=== PATIENT | female | born 1945 | race Caucasian/White ===

== ENCOUNTER 2017-12-11 19:31 | Emergency (ER) | payer OTHER, MEDICARE ==
[2017-12-11] MEDS ORDERED: FENTANYL CITR 100 MCG/2 ML ONE (20:11)
[2017-12-11 20:52] LABS: Absolute Lymphocytes (CBC) 3.2 K/uL (0.7-4.9); Absolute Monocytes 0.4 K/uL (0.1-1.3); Basophils % 0.4 % (0-1.3); Eosinophils % 1.7 % (0-4.4); Hematocrit 40.8 % (36.0-45.0); Lymphocytes % 36.7 % (15.3-44.8); MCH 31.5 pg (27.0-35.0); MCV 92.8 fL (80-100); MPV 8.3 fL (7.6-11.3); Monocytes % 4.7 % (3.3-12.3)
[2017-12-11 20:55] LABS: Protime INR 0.93
[2017-12-11 21:02] LABS: ALT/SGPT 23 U/L (12-78); AST/SGOT 19 U/L (15-37); Albumin 4.2 g/dL (3.4-5.0); Alkaline Phosphatase 147 U/L (45-117); BUN Blood Urea Nitrogen 16 mg/dL (7-18); Bicarbonate 29 mmol/L (21-32); Bilirubin Direct < 0.1 mg/dL (0-0.2); Bilirubin Total 0.3 mg/dL (0.2-1.0); CKMB Creatine Kinase MB < 1.0 ng/mL (0.3-3.6); Creatine Phosphokinase 65 U/L (26-192); Glucose Level 140 mg/dL (74-106); Lipase 162 U/L (73-393); Magnesium 2.2 mg/dL (1.8-2.4); Potassium 4.4 mmol/L (3.5-5.1); Protein, Total 7.7 g/dL (6.4-8.2); Sodium Level 138 mmol/L (136-145); Troponin (Emerg Dept Use Only) < 0.02 ng/mL (0.0-0.045)
--- NOTE | 2017-12-11 21:35 | RAD REPORT ---
EXAM DESCRIPTION: CT - Head C Spine Cap Leeanna Marsh - 12/11/2017 9:19 pm CLINICAL HISTORY: Fall, head and neck pain and trauma, chest and abdomen pain COMPARISON: None. TECHNIQUE: Axial [address] head images were obtained. Axial [address] cervical spine images were obtaine d with sagittal and coronal reconstruction images reviewed. During dynamic enhancement of 100mL non-i onic contrast, axial 5 mm images of the chest, abdomen and pelvis were obtained. All CT scans are performed using dose optimization technique as appropriate and may include automated exposure control or mA/KV adjustment according to patient size. FINDINGS: No intracranial hemorrhage, mass or edema. No midline shift or abnormal fluid collection. Mild atrophy and chronic ischemic changes are present. Ventricular size is in proportion. Mastoid air cells show no acute findings. There is postsurgical change on the right. No acute paranasal sinus fi nding. Small left parietal scalp hematoma. No skull fracture. CT cervical spine imaging shows normal height. Slight anterior subluxation C4 on C5 due to facet dege nerative change. C5-6 and C6-7 disc space narrowing. Endplate spurring and uncovertebral hypertrophy noted at several levels. Bony foraminal encroachment at C5-6 and C6-7. No paraspinal mass or hematoma seen. Central canal detail is inherently limited. Concerns for traumatic disc herniation or traumati c cord injury can be further addressed with MR imaging. CT chest shows no pneumothorax, pulmonary contusion or pleural fluid collection. No mediastinal hemat warner and the aorta and pulmonary arteries are unremarkable. No chest will mass or abnormal axillary fi nding. No displaced rib fracture or other significant bony finding. Surgical clips are present in th e right breast. CT abdomen and pelvis show no injury to solid abdominal viscera. Gallbladder and biliary tree are unr emarkable. No bowel injury or significant finding. No free air, free fluid or abnormal stranding. No urinary bladder abnormality. No significant bony finding. Small umbilical hernia present. IMPRESSION: No hemorrhage, edema or acute intracranial finding. Mild atrophy chronic ischemic change s are present. Cervical spine degenerative changes are present without acute finding seen. No acute trauma findings in the chest. No significant CT Abdomen and Pelvis finding.
--- NOTE | 2017-12-11 22:00 | ER ---
Nurse's Notes [facility] Name: Rachel Walker Age: 72 yrs Sex: Female : 1945 Arrival Date: 12/11/2017 Time: 19:31 Bed 8 Private MD: CHARISMA YANEZ Diagnosis: Muscle spasm of back Presentation: 12/11 19:35 Presenting complaint: Patient states: Mechanical fall from standing, pt reports +LOC, la1 pain in head and back. Transition of care: patient was not received from another setting of care. Onset of symptoms was December 11, 2017. Risk Assessment: Do you want to hurt yourself or someone else? Patient reports no desire to harm self or others. Care prior to arrival: None. 19:35 Method Of Arrival: Wheelchair la1 19:35 Acuity: MAYA 2 la1 19:51 Initial Sepsis Screen: Does the patient meet any 2 criteria? No. Patient's initial ao sepsis screen is negative. Does the patient have a suspected source of infection? No. Patient's initial sepsis screen is negative. 19:52 Mechanism of Injury: Fall down steps. Trauma event details: Injury occurred in the [facility]. Trauma Activation: Physician: ED Physician; Name: Dr. Myles; Notified At: ; Arrived At: Physician: General Surgeon; Name: ; Notified At: ; Arrived At: Physician: Radiology; Name: Nikki; Notified At: ; Arrived At: Physician: Respiratory; Name: ; Notified At: ; Arrived At: Physician: Lab; Name: ; Notified At: ; Arrived At: Historical: - Allergies: 19:40 PENICILLINS; la1 19:40 Codeine; la1 - PMHx: 19:40 Hypothyroidism; Depression; breast CA; la1 - PSHx: 19:40 Right Lumpectomy; la1 - Immunization history:: Adult Immunizations up to date. - Social history:: Smoking status: unknown Patient/guardian denies using alcohol, street drugs, The patient lives with family. - Immunization history: Last tetanus immunization: - up to date. - Ebola Screening: : No symptoms or risks identified at this time. - Family history:: not pertinent. Screenin:50 Abuse screen: Denies threats or abuse. Denies injuries from another. Nutritional ao screening: No deficits noted. Tuberculosis screening: No symptoms or risk factors identified. Fall Risk None identified. Primary Survey: 19:51 A: Airway: patent. Breathing/Chest: Respiratory pattern: regular, Respiratory effort: ao spontaneous, unlabored, Breath sounds: clear, Chest inspection: symmetrical rise and fall of the chest. Circulation: Cardiac rhythm: sinus rhythm. Disability Alert. 20:40 Reassessment Airway Airway Patent Breathing/Chest Respiratory pattern Regular ao Respiratory effort Spontaneous Unlabored Breath sounds Clear Circulation Heart rhythm Sinus rhythm. Assessment: 19:41 General: Appears in no apparent distress. uncomfortable, Behavior is calm, cooperative. ao Pain: Complains of pain in Back of the neck and shoulders. Neuro: Level of Consciousness is awake, alert, obeys commands, Oriented to person, place, time, situation, Appropriate for age Moves all extremities. Full function Speech is normal, Facial symmetry appears normal. Cardiovascular: Capillary refill < 3 seconds Patient's skin is warm and dry. Respiratory: Airway is patent Trachea midline Respiratory effort is even, unlabored, Respiratory pattern is regular, symmetrical, Breath sounds are clear bilaterally. GI: Abdomen is non-distended. : No signs and/or symptoms were reported regarding the genitourinary system. EENT: No signs and/or symptoms were reported regarding the EENT system. Derm: Skin is intact. Musculoskeletal: Swelling present in scalp Reports pain in scalp. 20:50 Reassessment: Patient appears in no apparent distress at this time. Patient and/or ao family updated on plan of care and expected duration. Pain level reassessed. Patient is alert, oriented x 3, equal unlabored respirations, skin warm/dry/pink. Dr informed patient asking for pain medication. 21:41 Reassessment: Patient appears in no apparent distress at this time. Patient and/or ao family updated on plan of care and expected duration. Pain level reassessed. Patient is alert, oriented x 3, equal unlabored respirations, skin warm/dry/pink. Wailing on Dispo orders. 22:31 Reassessment: DC instructions given to patient and daughter. patient agree with the POC ao and to follow up with PCP. No questions at this time. Vital Signs: 19:35 BP 151 / 78; Pulse 76; Resp 16; Temp 98.3; Pulse Ox 99% on R/A; Weight 54.43 kg; Height la1 5 ft. 1 in. (154.94 cm); 20:40 BP 146 / 76; Pulse 78; Resp 16; Pulse Ox 97% on R/A; ao 21:40 BP 145 / 72; Pulse 72; Resp 16; Pulse Ox 100% on R/A; ao 22:31 BP 138 / 72; Pulse 62; Resp 16; Pulse Ox 99% ; ao 19:35 Body Mass Index 22.67 (54.43 kg, 154.94 cm) la1 [place] Coma Score: 19:50 Eye Response: spontaneous(4). Verbal Response: oriented(5). Motor Response: obeys ao commands(6). Total: 15. Trauma Score (Adult): 19:50 Eye Response: spontaneous(1); Verbal Response: oriented(1); Motor Response: obeys ao commands(2); Systolic BP: > 89 mm Hg(4); Respiratory Rate: 10 to 29 per min(4); [place]ca Score: 15; Trauma Score: 12 ED Course: 19:31 Patient arrived in ED. ds1 19:31 CHARISMA YANEZ is Private Physician. ds1 19:35 Arm band placed on left wrist. la1 19:36 Triage completed. la1 19:36 Patel Navarro, RN is Primary Nurse. ao 19:45 Heidi Myles MD is Attending Physician. ma2 19:51 Patient has correct armband on for positive identification. Pulse ox on. NIBP on. ao 19:51 Patient maintains SpO2 saturation greater than 95% on room air. ao 19:53 Thermoregulation: warm blanket given to patient. ao 20:09 EKG done, by ED staff. Initial lab(s) drawn, by me. Inserted saline lock: 20 gauge in cb2 left antecubital area, using aseptic technique. Blood collected. 20:20 Radiology exam delayed due to lab results not completed at this time. (BUN/Creatinine). sj 21:[address] sj 21:19 CT Traumagram (Head C Spine CAP W Con) In Process Unspecified. EDMS 22:33 No provider procedures requiring assistance completed. IV discontinued, intact, ao bleeding controlled, No redness/swelling at site. Pressure dressing applied. Administered Medications: 20:12 Drug: fentaNYL (PF) 25 mcg Route: IVP; Site: left antecubital; ao 21:00 Follow up: Response: No adverse reaction ao 20:59 Drug: fentaNYL (PF) 25 mcg Route: IVP; Site: right antecubital; ao 23:58 Follow up: Response: No adverse reaction ao 22:05 Drug: fentaNYL (PF) 50 mcg Route: IVP; Site: left antecubital; ea 23:00 Follow up: Response: No adverse reaction ao 22:06 Drug: Valium 5 mg Route: PO; ea 23:00 Follow up: Response: No adverse reaction ao Intake: 22:34 PO: 0ml; Total: 0ml. ao Outcome: 22:00 Discharge ordered by MD. finney 22:34 Discharged to home via wheelchair. ao 22:34 Condition: stable 22:34 Discharge instructions given to patient, Instructed on discharge instructions, follow up and referral plans. Demonstrated understanding of instructions, follow-up care, wound care, Prescriptions given X 3. 22:35 Patient's length of stay was not longer than 2 hours. ao 22:35 Patient left the ED. ao Signatures: Dispatcher [employer] Sadaf Pretty Demi ds1 Kavon Velez RN RN laPatel Godinez RN RN ao Bulan, Christian cb2 Antunez, Elena, RN RN ea Alzahri, Mohammad, MD MD ma2
--- NOTE | 2017-12-11 22:00 | EDPHYS ---
Physician Documentation [facility] Name: Rachel Walker Age: 72 yrs Sex: Female : 1945 Arrival Date: 12/11/2017 Time: 19:31 Bed 8 Private MD: CHARISMA YANEZ ED Physician Heidi Myles HPI: 12/11 20:08 This 72 yrs old Female presents to ER via Wheelchair with complaints of Fall ma2 Injury. 20:08 Details of fall: The patient fell from an upright position. Onset: The symptoms/episode ma2 began/occurred suddenly, 1 hour(s) ago. Associated injuries: The patient sustained injury to the head, upper back injury. Severity of symptoms: At their worst the symptoms were moderate, in the emergency department the symptoms are unchanged. possible syncope, fell from standing hit her head has right upper back pain and neck pain . Historical: - Allergies: 19:40 PENICILLINS; la1 19:40 Codeine; la1 - PMHx: 19:40 Hypothyroidism; Depression; breast CA; la1 - PSHx: 19:40 Right Lumpectomy; la1 - Immunization history:: Adult Immunizations up to date. - Social history:: Smoking status: unknown Patient/guardian denies using alcohol, street drugs, The patient lives with family. - Immunization history: Last tetanus immunization: - up to date. - Ebola Screening: : No symptoms or risks identified at this time. - Family history:: not pertinent. ROS: 20:08 Cardiovascular: Positive for possible syncope, Negative for chest pain, edema, ma2 orthopnea, palpitations. 20:08 MS/extremity: Positive for pain, Negative for acute changes, bite, decreased range of motion, ecchymosis, paresthesias, puncture, warmth. 20:08 All other systems are negative. 22:01 Respiratory: Negative for shortness of breath, cough, wheezing, and pleuritic chest ma2 pain. Exam: 20:08 Constitutional: This is a well developed, well nourished patient who is awake, alert, ma2 and in no acute distress. Head/Face: Normocephalic, atraumatic. ENT: Nares patent. No nasal discharge, no septal abnormalities noted. Tympanic membranes are normal and external auditory canals are clear. Oropharynx with no redness, swelling, or masses, exudates, or evidence of obstruction, uvula midline. Mucous membranes moist. Chest/axilla: Normal chest wall appearance and motion. Nontender with no deformity. No lesions are appreciated. Cardiovascular: Regular rate and rhythm with a normal S1 and S2. No gallops, murmurs, or rubs. Normal PMI, no JVD. No pulse deficits. Respiratory: Lungs have equal breath sounds bilaterally, clear to auscultation and percussion. No rales, rhonchi or wheezes noted. No increased work of breathing, no retractions or nasal flaring. Abdomen/GI: Soft, non-tender, with normal bowel sounds. No distension or tympany. No guarding or rebound. No evidence of tenderness throughout. Skin: Warm, dry with normal turgor. Normal color with no rashes, no lesions, and no evidence of cellulitis. Neuro: Awake and alert, GCS 15, oriented to person, place, time, and situation. Cranial nerves II-XII grossly intact. Motor strength 5/5 in all extremities. Sensory grossly intact. Cerebellar exam normal. Normal gait. 20:08 Back: pain, that is moderate, ROM is painful, muscle spasm, ttp to right upper back including t4-t2. 20:08 Musculoskeletal/extremity: ROM: limited passive range of motion, in the right hip. Vital Signs: 19:35 BP 151 / 78; Pulse 76; Resp 16; Temp 98.3; Pulse Ox 99% on R/A; Weight 54.43 kg; Height la1 5 ft. 1 in. (154.94 cm); 20:40 BP 146 / 76; Pulse 78; Resp 16; Pulse Ox 97% on R/A; ao 21:40 BP 145 / 72; Pulse 72; Resp 16; Pulse Ox 100% on R/A; ao 22:31 BP 138 / 72; Pulse 62; Resp 16; Pulse Ox 99% ; ao 19:35 Body Mass Index 22.67 (54.43 kg, 154.94 cm) la1 [place] Coma Score: 19:50 Eye Response: spontaneous(4). Verbal Response: oriented(5). Motor Response: obeys ao commands(6). Total: 15. Trauma Score (Adult): 19:50 Eye Response: spontaneous(1); Verbal Response: oriented(1); Motor Response: obeys ao commands(2); Systolic BP: > 89 mm Hg(4); Respiratory Rate: 10 to 29 per min(4); [place] Score: 15; Trauma Score: 12 MDM: 19:45 Patient medically screened. 2 20:08 Differential diagnosis: closed head injury, contusion, fracture, multiple trauma, ma2 sprain, strain. 21:56 Data reviewed: vital signs, nurses notes, diagnostic data from outside facility, lab ma2 test result(s), radiologic studies. Counseling: I had a detailed discussion with the patient and/or guardian regarding: the historical points, exam findings, and any diagnostic results supporting the discharge/admit diagnosis, the presence of at least one elevated blood pressure reading (>120/80) during this emergency department visit, the need for outpatient follow up. Response to treatment: the patient's symptoms have markedly improved after treatment. Special discussion: the parent(s) request images wnl, likely having contusion, i offered admission for pain control and syncope workup however she prefer to go home and f/u with her pcp, she is low risk syncope anyway per [place] rule . 12/11 20:08 Order name: Basic Metabolic Panel; Complete Time: 21:24 wa12/11 20:08 Order name: CBC with Diff; Complete Time: 21:24 wa12/11 20:08 Order name: Ckmb; Complete Time: 21:24 wa12/11 20:08 Order name: CPK; Complete Time: 21:24 wa12/11 20:08 Order name: Hepatic Function; Complete Time: 21:24 [facility] 12/11 20:08 Order name: Lipase; Complete Time: 21: [facility] 12/11 20:03 Order name: CT Traumagram (Head C Spine CAP W Con); Complete Time: 21:44 wa2 12/11 20:08 Order name: Magnesium; Complete Time: 21:24 [facility] 12/11 20:08 Order name: Protime (+inr); Complete Time: 21:24 [facility] 12/11 20:08 Order name: Ptt, Activated; Complete Time: 21:24 [facility] 12/11 20:08 Order name: Troponin (emerg Dept Use Only); Complete Time: 21:24 [facility] 12/11 20:44 Order name: Urine Dipstick--Ancillary (enter results) [facility] 12/11 20:45 Order name: Urine Dipstick-Ancillary EDMS 12/11 20:08 Order name: Cardiac monitoring; Complete Time: 20:12 [facility] 12/11 20:08 Order name: EKG - Nurse/Tech; Complete Time: 20:10 [facility] 12/11 20:08 Order name: IV Saline Lock; Complete Time: 20:10 [facility] 12/11 20:08 Order name: Labs collected and sent; Complete Time: 21:00 [facility] 12/11 20:08 Order name: NPO; Complete Time: 20:11 [facility] 12/11 20:08 Order name: O2 Per Protocol; Complete Time: 20:11 [facility] 12/11 20:08 Order name: O2 Sat Monitoring; Complete Time: 20:11 [facility] 12/11 20:08 Order name: Urine Dipstick-Ancillary (obtain specimen); Complete Time: 21:00 ma Administered Medications: 20:12 Drug: fentaNYL (PF) 25 mcg Route: IVP; Site: left antecubital; ao 21:00 Follow up: Response: No adverse reaction ao 20:59 Drug: fentaNYL (PF) 25 mcg Route: IVP; Site: right antecubital; ao 23:58 Follow up: Response: No adverse reaction ao 22:05 Drug: fentaNYL (PF) 50 mcg Route: IVP; Site: left antecubital; ea 23:00 Follow up: Response: No adverse reaction ao 22:06 Drug: Valium 5 mg Route: PO; ea 23:00 Follow up: Response: No adverse reaction ao Disposition: 12/11/17 22:00 Discharged to Home. Impression: Muscle spasm of back. - Condition is Stable. - Discharge Instructions: Muscle Cramps and Spasms, Back Injury Prevention, [id number]. - Prescriptions for Valium 2 mg Oral Tablet - take 1 tablet by ORAL route every 8 hours As needed; 20 tablet. Motrin IB 200 mg Oral Tablet - take 2 tablet by ORAL route every 6 hours As needed as needed with food; 40 tablet. Cyclobenzaprine 5 mg Oral Tablet - take 1 tablet by ORAL route 3 times per day As needed; 15 tablet. - Family Work Release, Medication Reconciliation Form, Thank You Letter, Antibiotic Education, Prescription Opioid Use form. - Follow up: Private Physician; When: Tomorrow; Reason: Continuance of care. - Problem is new. - Symptoms are unchanged. Signatures: Dispatcher [employer] EDKavon White RN RN la1 Patel Navarro, RN Dixie Maguire RN Heidi Veloz ea, MD MD ma2 Corrections: (The following items were deleted from the chart) 22:35 22:00 12/11/2017 22:00 Discharged to Home. Impression: Muscle spasm of back. Condition ao is Stable. Forms are Medication Reconciliation Form, Thank You Letter, Antibiotic Education, Prescription Opioid Use. Follow up: Private Physician; When: Tomorrow; Reason: Continuance of care. Problem is new. Symptoms are unchanged. ma2
[2017-12-11] MEDS ORDERED: DIAZEPAM 5 MG TABLET ONE (22:06)
[2017-12-11 22:10] LABS: Urine Blood NEGATIVE (NEG); Urine Glucose NEGATIVE (NEG); Urine Protein NEGATIVE (NEG); Urine Specific Gravity 1.015 (1.005-1.030); Urine pH 5.5 (5.0-7.0)
--- NOTE | 2017-12-12 09:48 | EKG ---
Test Date: 2017-12-11 Test Time: 19:43:52 Emt Dispatcher: EMELY MEASUREMENT RESULTS: Intervals: Rate: 76 MA: 142 QRSD: 76 QT: 406 QTc: 456 [place]: P: 59 MA: 142 QRS: 66 T: 68 INTERPRETIVE STATEMENTS: Normal sinus rhythm Normal ECG No previous ECG available for comparison Electronically Signed On 12-12-17 09:48:06 CDT by Ady Graham
== END 2017-12-11 22:35 | disposition home or self-care (01) ==
LOC: ER 19:31
DX: M62.830 Muscle spasm of back (principal); W19.XXXA Unspecified fall, initial encounter; Y93.01 Activity, walking, marching and hiking; Y92.9 Unspecified place or not applicable; Z85.3 Personal history of malignant neoplasm of breast; Z88.5 Allergy status to narcotic agent; Z88.0 Allergy status to penicillin
CPT/HCPCS: 36415; 70450; 71260; 72125; 74177; 80048; 80076; 81003; 82550; 82553; 83690; 83735; 84484; 85025; 85610; 85730; 93005; J3010; Q9967; 99285

== ENCOUNTER 2021-05-05 13:04 | Emergency (ER) | payer OTHER, MEDICARE ==
--- OUTSIDE RECORDS SUMMARY | 2021-05-05 13:07 | XMS REPORT | Continuity of Care Document ---
:1945 [address] [facility] t Address [address] [place] [address] Care Team Providers Name Role Phone [phone] Primary Care Physician Unavailable Shashank BLANCO Attending Clinician Unavailable SHARAN Attending Clinician Unavailable Radiology Attending Clinician Unavailable RADIOLOGY Attending Clinician Unavailable Doctor Unassigned, Name Attending Clinician Unavailable Jose Antonio PATEL III Attending Clinician Unavailable Theodore CAMACHO Admitting Clinician Unavailable Jose Antonio PATEL III Admitting Clinician Unavailable Payers Payer Name Policy Type Policy Number Effective Date Expiration Date [facility] A AND [id number] 2011 B 00:00:00 [employer]-SECONDARY ONLY [id number] 2012 00:00:00 MEDICARE PART A \T\ [id number] 2011 B 00:00:00 [facility] [id number] 2012 MEDICARE SUPPLEMENT 00:00:00 Problems This patient has no known problems. Allergies, Adverse Reactions, Alerts Allergy Allergy Status Severity Reaction(s) Onset Inactive Treating Comm ents Source Name Type Date Date Clinician CODEINE DRUG Active Unknown-Cmnt 2018- Uni vers [facility]I 04-23 ity of 00:00: [address] [place] DRUG Active Unknown-Cmnt 2018- Un grayson IN [facility] 04-23 ity of 00:00: [address] Medications This patient has no known medications. Procedures This patient has no known procedures. Encounters Start End Encounter Admission Attending Care Care Encounter Source Date/Time Date/Time Type Type Clinicians Facility Department ID 2020-12-20 2020-12-20 Outpatient PRADEEP DESAI MDA [id number] Sal SINGH 14:32:34 14:32:34 [facility] 2020-12-20 2020-12-20 Outpatient PASTOR NUNN [facility] [id number] 13:27:07 13:27:07 Jason hill 2020-12-20 2020-12-20 Outpatient PRADEEP TSANG [facility] [id number] 10:02:16 11:22:07 RHETT Jason hill 2019-04-01 2019-04-01 [facility] Radiology [facility] [id number] 10:33:00 23:59:00 [place]counter [place] [id number] [place] [id number] [place] [id number] 2019-04-01 2019-04-01 Outpatient R RADIOLOGY [facility] [id number] [facility] 10:33:11 10:32:00 [facility] [place] 2019-04-01 2019-04-01 [facility] Radiology [facility] [id number] 10:30:00 10:32:00 Encounter [place] [id number] [place] [id number] [place] [id number] 2019-04-01 2019-04-01 Orders Doctor ILENE [id number] 00:00:00 00:00:00 Only Unassigned, DONNA [id number] [place] [facility] [id number] 2019-02-20 2019-02-20 Emergency X JORGE III, [facility] ERT [id number] [facility] 12:58:20 16:08:00 LINETTE leonor [facility] Results This patient has no known results.
[2021-05-05 14:16] LABS: Absolute Lymphocytes (CBC) 2.2 K/uL (0.7-4.9); Hematocrit 36.9 % (36.0-45.0); Lymphocytes % 31.7 % (15.3-44.8); MPV 7.7 fL (7.6-11.3); RBC Red Blood Cell Count 4.07 M/uL (3.86-4.86)
[2021-05-05 14:23] LABS: Protime INR 0.99
[2021-05-05 15:05] LABS: ALT/SGPT 26 U/L (12-78); AST/SGOT 12 U/L (15-37); Albumin 3.9 g/dL (3.4-5.0); Alkaline Phosphatase 144 U/L (45-117); BUN Blood Urea Nitrogen 17 mg/dL (7-18); Bicarbonate 26 mmol/L (21-32); Bilirubin Direct < 0.1 mg/dL (0-0.2); Bilirubin Total 0.3 mg/dL (0.2-1.0); Glucose Level 98 mg/dL (74-106); Magnesium 2.1 mg/dL (1.8-2.4); NT PRO-BNP 72 pg/mL (<125); Protein, Total 7.2 g/dL (6.4-8.2); Sodium Level 142 mmol/L (136-145)
[2021-05-05 15:39] LABS: T3 Free 4.87 pg/mL (2.18-3.98); Thyroid Stimulating Hormone 0.012 uIU/mL (0.360-3.740)
--- NOTE | 2021-05-05 15:41 | RAD REPORT ---
EXAM DESCRIPTION: RAD - Chest Single View - 05/05/2021 2:29 pm CLINICAL HISTORY: SOB COMPARISON: Two view chest November 2015 TECHNIQUE: AP portable chest image was obtained 05/05/2021 2:29 pm . FINDINGS: Lungs are fibrotic in a pattern similar to comparison. Surgical clips overlie the right mi d chest and lateral chest soft tissues. No acute mass or infiltrate seen. Failure and volume overload are not suspected. Heart and vasculature are normal. No measurable pleural effusion and no pneumothorax. No acute bony abnormality seen. No acute aortic findings suspected. IMPRESSION: No acute cardiopulmonary process. No significant change from comparison.
--- NOTE | 2021-05-05 15:55 | RAD REPORT ---
EXAM DESCRIPTION: CT - Chest For Pe Angio - 05/05/2021 3:37 pm CLINICAL HISTORY: COPD;Dyspnea COMPARISON: Chest Single View dated 05/05/2021 TECHNIQUE: Dynamically enhanced 3 mm thick images of the chest were obtained during administration o f approximately 150mL Isovue 370 IV contrast. Coronal and oblique MIP reconstruction images were gene rated and reviewed. Exam utilizes a protocol to evaluate the pulmonary arterial tree. All CT scans are performed using dose optimization technique as appropriate and may include automated exposure control or mA/KV adjustment according to patient size. Dynamically enhanced 2 mm thick images of the chest, abdomen, and pelvis were obtained during adminis tration of approximately 150mL Isovue 370 IV contrast. Sagittal and coronal reconstruction images wer e generated using MIP and reviewed. Exam utilizes a protocol to evaluate entire course of the aorta. FINDINGS: No pulmonary emboli are identified. The aorta as imaged shows no acute or suspicious finding. No pericardial thickening or effusion. No peripheral mass or consolidation. Lung kaba are hyperexpanded with an underlying interstitial fi brotic pattern. Slightly more prominent areas of subpleural fibrosis noted in the upper lung kaba. Peribronchial thickening is seen. No endobronchial lesion identified. No pleural effusion or pleural thickening. No mediastinal or hilar suspicious masses. No chest wall masses or abnormal axillary lymphadenopathy. IMPRESSION: No pulmonary emboli identified. No focal infiltrate to suggest bacterial pneumonia. Patient has underlying fibrosis and hyper expande d lung kaba consistent with the provided history of COPD. Peribronchial thickening is seen. Correlation is needed with any acute bronchitis or viral infiltrate findings.
--- NOTE | 2021-05-05 17:03 | EDPHYS ---
Physician Documentation [facility] Name: Rachel Walker Age: 75 yrs Sex: Female : 1945 Arrival Date: 05/05/2021 Time: 13:05 Bed 12 Private MD: ED Physician Wilberto Tracey HPI: 05/05 19:37 This 75 yrs old Female presents to ER via Ambulatory with complaints of Breathing kdr Difficulty, Back Pain. 19:20 Patient was sent by Dr. Falcon to the ED for evaluation of her breathing difficulty. She kdr states that she feels like she cannot breathe. This is been going on for about a week to 2 weeks. It has become precipitously worse in the last couple days. Dr. Falcon called ahead of the patient's arrival and he asked that certain lab studies to be done including a CT chest PE protocol. He also asked that her thyroid be checked. 19:37 The patient has shortness of breath at rest, with light activity. Onset: The kdr symptoms/episode began/occurred gradually, Had been going on for some week or 2 but precipitously worse in the last couple days. Duration: The symptoms are continuous, and are steadily getting worse. The patient's shortness of breath is aggravated by nothing. Associated signs and symptoms: Pertinent positives: Pertinent negatives: chest pain, non-productive cough, productive cough, diaphoresis, dizziness, fever, hemoptysis, loss of consciousness, nausea, numbness in extremities, visual changes, vomiting. Severity of symptoms: At their worst the symptoms were mild moderate just prior to arrival, in the emergency department the symptoms are unchanged. The patient has not experienced similar symptoms in the past. The patient has not recently seen a physician. Historical: - Allergies: 13:40 Codeine; ap3 13:40 PENICILLINS; ap3 - PMHx: 13:40 BREAST CA; Depression; Hypothyroidism; ap3 - Immunization history:: Client reports receiving the 2nd dose of the Covid vaccine, and booster Pneumococcal vaccine is not up to date, Flu vaccine is up to date. - Social history:: Smoking status: Patient denies any tobacco usage or history of. Patient uses alcohol, occasionally. ROS: 19:37 Constitutional: Negative for fever, chills, and weight loss, Eyes: Negative for injury, kdr pain, redness, and discharge, ENT: Negative for injury, pain, and discharge, Neck: Negative for injury, pain, and swelling, Cardiovascular: Negative for chest pain, palpitations, and edema, Abdomen/GI: Negative for abdominal pain, nausea, vomiting, diarrhea, and constipation, Back: Negative for injury and pain, : Negative for injury, bleeding, discharge, and swelling, MS/Extremity: Negative for injury and deformity, Skin: Negative for injury, rash, and discoloration, Neuro: Negative for headache, weakness, numbness, tingling, and seizure activity. Psych: Negative for depression, anxiety, suicide ideation, homicidal ideation, and hallucinations, Allergy/Immunology: Negative for hives, rash, and allergies, Endocrine: Negative for neck swelling, polydipsia, polyuria, polyphagia, and marked weight changes, Hematologic/Lymphatic: Negative for swollen nodes, abnormal bleeding, and unusual bruising. 19:37 Respiratory: Positive for dyspnea on exertion, shortness of breath, at rest. Negative for hemoptysis, pleurisy, wheezing. Exam: 19:37 Constitutional: This is a well developed, well nourished patient who is awake, alert, kdr and in no acute distress. Head/Face: Normocephalic, atraumatic. Eyes: Pupils equal round and reactive to light, extra-ocular motions intact. Lids and lashes normal. Conjunctiva and sclera are non-icteric and not injected. Cornea within normal limits. Periorbital areas with no swelling, redness, or edema. Neck: Trachea midline, no thyromegaly or masses palpated, and no cervical lymphadenopathy. Supple, full range of motion without nuchal rigidity, or vertebral point tenderness. No Meningismus. Chest/axilla: Normal chest wall appearance and motion. Nontender with no deformity. No lesions are appreciated. Cardiovascular: Regular rate and rhythm with a normal S1 and S2. No gallops, murmurs, or rubs. Normal PMI, no JVD. No pulse deficits. Abdomen/GI: Soft, non-tender, with normal bowel sounds. No distension or tympany. No guarding or rebound. No evidence of tenderness throughout. Back: No spinal tenderness. No costovertebral tenderness. Full range of motion. Skin: Warm, dry with normal turgor. Normal color with no rashes, no lesions, and no evidence of cellulitis. MS/ Extremity: Pulses equal, no cyanosis. Neurovascular intact. Full, normal range of motion. Neuro: Awake and alert, GCS 15, oriented to person, place, time, and situation. Cranial nerves II-XII grossly intact. Motor strength 5/5 in all extremities. Sensory grossly intact. Cerebellar exam normal. Normal gait. Psych: Awake, alert, with orientation to person, place and time. Behavior, mood, and affect are within normal limits. 19:37 Respiratory: the patient does not display signs of respiratory distress, Respirations: labored breathing, that is mild, shallow respirations, that is mild, tachypnea, that is moderate, Breath sounds: are clear throughout. Vital Signs: 13:38 BP 126 / 78; Pulse 90; Resp 19; Temp 98.9; Pulse Ox 98% on R/A; Weight 53.07 kg; Height ap3 5 ft. 1 in. (154.94 cm); Pain 0/10; 16:04 BP 132 / 68; Pulse 76; Resp 18; Pulse Ox 97% on R/A; ss7 17:20 BP 150 / 76; Pulse 87; Resp 20; Pulse Ox 96% on R/A; ss7 13:38 Body Mass Index 22.11 (53.07 kg, 154.94 cm) ap3 MDM: 17:02 Patient medically screened. kdr 19:37 Data reviewed: vital signs, nurses notes, lab test result(s), radiologic studies. kdr Counseling: I had a detailed discussion with the patient and/or guardian regarding: the historical points, exam findings, and any diagnostic results supporting the discharge/admit diagnosis, lab results, radiology results, the need for outpatient follow up. Physician consultation: A Ezekiel SINGH regarding consult, patient's condition, outpatient follow-up, and will see patient in office, next week, Requested that the patient stop her Synthroid until follow-up with him. 05/05 13:45 Order name: Basic Metabolic Panel [facility] 05/05 13:45 Order name: CBC with Diff; Complete Time: 15:11 [facility] 05/05 13:45 Order name: LFT's kdr 05/05 13:45 Order name: Magnesium; Complete Time: 15:11 [facility] 05/05 13:45 Order name: NT PRO-BNP; Complete Time: 15:11 [facility] 05/05 13:45 Order name: PT-INR; Complete Time: 15:11 [facility] 05/05 13:45 Order name: Troponin HS; Complete Time: 15:11 [facility] 05/05 13:45 Order name: XRAY Chest (1 view); Complete Time: 15:50 [facility] 05/05 13:45 Order name: Basic Metabolic Panel; Complete Time: 15:11 [facility] 05/05 13:45 Order name: Liver (Hepatic) Function; Complete Time: 15:11 [facility] 05/05 14:51 Order name: TSH; Complete Time: 15:50 [facility] 05/05 14:51 Order name: T3 Free; Complete Time: 15:50 [facility] 05/05 14:51 Order name: T4 Free; Complete Time: 15:50 [facility] 05/05 15:25 Order name: CT Chest For PE Angio; Complete Time: 16:12 [facility] 05/05 13:45 Order name: EKG; Complete Time: 13:45 [facility] 05/05 13:45 Order name: Cardiac monitoring; Complete Time: 14:12 [facility] 05/05 13:45 Order name: EKG - Nurse/Tech; Complete Time: 14:12 [facility] 05/05 13:45 Order name: IV Saline Lock; Complete Time: 14:12 [facility] 05/05 13:45 Order name: Labs collected and sent; Complete Time: 14:12 [facility] 05/05 13:45 Order name: O2 Per Protocol; Complete Time: 14:12 [facility] 05/05 13:45 Order name: O2 Sat Monitoring; Complete Time: 14:12 kdr Administered Medications: No medications were administered Disposition Summary: 05/05/21 17:02 Discharge Ordered Location: Home kdr Problem: new kdr Symptoms: have improved kdr Condition: Stable kdr Diagnosis - Thyrotoxicosis, unspecified without thyrotoxic crisis or storm kdr Followup: kdr - With: Private Physician - When: 5 - 6 days - Reason: If symptoms return, Further diagnostic work-up, Recheck today's complaints, Continuance of care, Re-evaluation by your physician Followup: kdr - With: Jose Antonio Falcon MD - When: Next Sunday or Sunday - Reason: If symptoms return, Further diagnostic work-up, Recheck today's complaints, Continuance of care, Re-evaluation by your physician Discharge Instructions: - Discharge Summary Sheet kdr - Hyperthyroidism kdr Forms: - Medication Reconciliation Form kdr - Thank You Letter kdr Signatures: Dispatcher [employer] Wilberto Piper MD MD kdr Beatrice Ortiz, RN RN ap3
--- NOTE | 2021-05-05 17:03 | ER ---
Nurse's Notes [facility] Name: Rachel Walker Age: 75 yrs Sex: Female : 1945 Arrival Date: 05/05/2021 Time: 13:05 Bed 12 Private MD: Diagnosis: Thyrotoxicosis, unspecified without thyrotoxic crisis or storm Presentation: 05/05 13:38 Chief complaint: Patient states: she was sent by her provider due to her breathing ap3 heavily, and feeling like she can't breathe. Patient also states that her blood pressure has been fluctuating the last few days. Coronavirus screen: shortness of breath, Client presents with at least one sign or symptom that may indicate coronavirus-19. Standard/surgical mask placed on the client. Provider contacted for isolation considerations. Ebola Screen: No symptoms or risks identified at this time. Initial Sepsis Screen: Does the patient meet any 2 criteria? No. Patient's initial sepsis screen is negative. Does the patient have a suspected source of infection? No. Patient's initial sepsis screen is negative. Risk Assessment: Do you want to hurt yourself or someone else? Patient reports no desire to harm self or others. Onset of symptoms was May 05, 2021. 13:38 Method Of Arrival: Ambulatory ap3 13:38 Acuity: MAYA 3 ap3 Triage Assessment: 13:41 General: Appears distressed, Behavior is cooperative, anxious. Pain: Denies pain. ap3 Neuro: Level of Consciousness is awake, alert, obeys commands, Oriented to person, place, time, situation, Gait is steady, Speech is normal. Cardiovascular: Patient's skin is warm and dry. Respiratory: Reports shortness of breath at rest air hunger labored breathing Airway is patent Respiratory effort is even, labored, Respiratory pattern is regular, Onset: The symptoms/episode began/occurred over the last 4-5 days, the patient has mild shortness of breath. Historical: - Allergies: 13:40 Codeine; ap3 13:40 PENICILLINS; ap3 - PMHx: 13:40 BREAST CA; Depression; Hypothyroidism; ap3 - Immunization history:: Client reports receiving the 2nd dose of the Covid vaccine, and booster Pneumococcal vaccine is not up to date, Flu vaccine is up to date. - Social history:: Smoking status: Patient denies any tobacco usage or history of. Patient uses alcohol, occasionally. Screenin:43 Abuse screen: Denies threats or abuse. Nutritional screening: No deficits noted. ap3 Tuberculosis screening: No symptoms or risk factors identified. 14:14 Fall Risk IV access (20 points). ss7 Assessment: 14:12 General: Appears in no apparent distress. uncomfortable, well groomed, Behavior is ss7 cooperative, anxious. Neuro: No deficits noted. Neuro: Reports "nervousness". Cardiovascular: No deficits noted. Rhythm is with sinus arrhythmia. Respiratory: No deficits noted. Reports shortness of breath at rest Airway is patent Breath sounds are clear bilaterally. GI: No deficits noted. : No deficits noted. EENT: No deficits noted. Derm: No deficits noted. Musculoskeletal: No deficits noted. 17:18 Reassessment: Pt ambulatory to check out with all personal belongings in NAD. Reporting ss7 to vehicle to see if she has her medication or medication list for Dr. Tracey. Pt states if she doesn't she will call her pcp on tomorrow for medication reconciliation. . Vital Signs: 13:38 BP 126 / 78; Pulse 90; Resp 19; Temp 98.9; Pulse Ox 98% on R/A; Weight 53.07 kg; Height ap3 5 ft. 1 in. (154.94 cm); Pain 0/10; 16:04 BP 132 / 68; Pulse 76; Resp 18; Pulse Ox 97% on R/A; ss7 17:20 BP 150 / 76; Pulse 87; Resp 20; Pulse Ox 96% on R/A; ss7 13:38 Body Mass Index 22.11 (53.07 kg, 154.94 cm) ap3 ED Course: 13:05 Patient arrived in ED. ds1 13:40 Triage completed. ap3 13:42 Wilberto Tracey MD is Attending Physician. kdr 13:43 Arm band placed on left wrist. ap3 14:11 Basic Metabolic Panel Sent. ss7 14:11 LFT's Sent. ss7 14:14 Patient has correct armband on for positive identification. Placed in gown. Bed in low ss7 position. Call light in reach. 14:14 No provider procedures requiring assistance completed. Inserted saline lock: 20 gauge ss7 in right antecubital area, using aseptic technique. 14:29 XRAY Chest (1 view) In Process Unspecified. EDMS 15:36 CT Chest For PE Angio In Process Unspecified. EDMS 17:02 Jose Antonio Falcon MD is Referral Physician. kdr 17:13 IV discontinued, intact. ss7 Administered Medications: No medications were administered Outcome: 17:02 Discharge ordered by . kdr 17:12 Discharged to home ambulatory. ss7 17:12 Condition: stable 17:12 Discharge instructions given to patient. 17:20 Patient left the ED. ss7 Signatures: Dispatcher [employer] EDMA Wilberto Tracey MD MD kdr Rosmery Granda ds1 Beatrice Ortiz, RN RN ap3 Shahla Hernández, RN RN ss7
[2021-05-05 18:55] VITALS: TEMP 98.9
[2021-05-05 18:57] VITALS: BP 150/76; O2SAT 96
--- NOTE | 2021-05-06 13:07 | EKG ---
Test Date: 2021-05-05 Test Time: 13:51:12 [employer] Tower Dispatcher: SS MEASUREMENT RESULTS: Intervals: Rate: 69 VT: 98 QRSD: 72 QT: 398 QTc: 426 [place]: P: 67 VT: 98 QRS: 50 T: 58 INTERPRETIVE STATEMENTS: Sinus rhythm with sinus arrhythmia with short VT Nonspecific ST abnormality Abnormal ECG Compared to ECG 12/11/2017 19:43:52 Short VT interval now present ST (T wave) deviation now present Electronically Signed On 05-06-21 13:03:11 TRAFFIC MAINTENANCE SUPERVISOR by Miki Amanda
== END 2021-05-05 17:20 | disposition home or self-care (01) ==
LOC: ER 13:04
DX: E05.91 Thyrotoxicosis, unspecified with thyrotoxic crisis or storm (principal); Z88.0 Allergy status to penicillin; Z88.5 Allergy status to narcotic agent
CPT/HCPCS: 93005; 85025; 80048; 36415; 83735; 85610; 80076; 84443; 84484; 84481; 84439; 83880; 71275; 71045; 99283; Q9967

== ENCOUNTER 2021-06-07 20:11 | Emergency (ER) | payer OTHER, MEDICARE ==
--- OUTSIDE RECORDS SUMMARY | 2021-06-07 20:14 | XMS REPORT | Continuity of Care Document ---
:1945 Author Organization [facility] t Address [address] [place] [address] Care Team Providers Name Role Phone [phone] Primary Care Physician Unavailable Shashank BLANCO Attending Clinician Unavailable SHARAN Attending Clinician Unavailable Radiology Attending Clinician Unavailable RADIOLOGY Attending Clinician Unavailable Doctor Unassigned, Name Attending Clinician Unavailable Jose Antonio PATEL III Attending Clinician Unavailable Theodore CAMACHO Admitting Clinician Unavailable Jose Antonio PATEL III Admitting Clinician Unavailable Payers Payer Name Policy Type Policy Number Effective Date Expiration Date [facility] AND [id number] 2011 B 00:00:00 [employer]-SECOND[employer] ONLY [id number] 2012 00:00:00 MEDICARE PART A \T\ [id number] 2011 B 00:00:00 [facility] [id number] 2012 MEDICARE SUPPLEMENT 00:00:00 Problems This patient has no known problems. Allergies, Adverse Reactions, Alerts Allergy Allergy Status Severity Reaction(s) Onset Inactive Treating Comm ents Source Name Type Date Date Clinician CODEINE DRUG Active Unknown-Cmnt 2018- Uni vers [facility]I 04-23 ity of 00:00: [address] P[place]IC[place] DRUG Active Unknown-Cmnt 2018- Un grayson IN [facility]I 04-23 ity of 00:00: [address] Medications This patient has no known medications. Procedures This patient has no known procedures. Encounters Start End Encounter Admission Attending Care Care Encounter Source Date/Time Date/Time Type Type Clinicians Facility Department ID 2020-12-20 2020-12-20 Outpatient PRADEEP DESAI MDA [id number] Sal SINGH 14:32:34 14:32:34 [facility] 2020-12-20 2020-12-20 Outpatient PASTOR NUNN [facility] [id number] 13:27:07 13:27:07 Jason [facility] 2020-12-20 2020-12-20 Outpatient PRADEEP TSANG [facility] [id number] 10:02:16 11:22:07 RHETT Jason [facility] 2019-04-01 2019-04-01 [facility] Radiology [facility] [id number] 10:33:00 23:59:00 Encounter [place] [id number] [place] [id number] [place] [id number] 2019-04-01 2019-04-01 Outpatient R RADIOLOGY [facility] [id number] [facility] 10:33:11 10:32:00 [facility] 2019-04-01 2019-04-01 [facility] Radiology [facility] [id number] 10:30:00 10:32:00 Encounter [place] [id number] [place] [id number] [place] [id number] 2019-04-01 2019-04-01 Orders Doctor ILENE [id number] 00:00:00 00:00:00 Only Unassigned, DONNA [id number] Katherine [facility] [id number] 2019-02-20 2019-02-20 Emergency X JORGE III, [facility] ERT [id number] [facility] 12:58:20 16:08:[address] [facility] Results This patient has no known results.
[2021-06-07] MEDS ORDERED: KETAMINE HCL 500 MG/5 ML VIAL ONE (20:32)
[2021-06-07] MEDS ORDERED: NA CHLORIDE 0.9% 1,000 ML ONE (20:32)
[2021-06-07 20:37] LABS: Absolute Lymphocytes (CBC) 3.4 K/uL (0.7-4.9); Hematocrit 35.5 % (36.0-45.0); MPV 7.2 fL (7.6-11.3); RBC Red Blood Cell Count 4.03 M/uL (3.86-4.86)
[2021-06-07 20:50] LABS: Protime INR 0.91
[2021-06-07] MEDS ORDERED: HYDROMORPHONE HCL 1 MG/ML INJ ONE (21:02)
[2021-06-07 21:16] LABS: Potassium 4.4 mmol/L (3.5-5.1)
--- NOTE | 2021-06-07 22:05 | RAD REPORT ---
EXAM DESCRIPTION: RAD - Hip Right 2 View - 06/07/2021 9:41 pm CLINICAL HISTORY: Right hip pain FINDINGS: Intertrochanteric fracture right femur extends to the greater trochanter. The lesser troch anter is avulsed. Varus angulation present at the fracture site. No dislocation
[2021-06-07] MEDS ORDERED: NA CHLORIDE 0.9% 100 ML IV ONE (22:28)
[2021-06-07] MEDS ORDERED: HYDROMORPHONE HCL 2 MG/ML inj ONE (22:28)
[2021-06-07] MEDS ORDERED: METHOCARBAMOL 1,000 MG/10 ML VIAL IV ONE (22:28)
--- NOTE | 2021-06-07 23:17 | EDPHYS ---
Physician Documentation [facility] Name: Rachel Walker Age: 75 yrs Sex: Female : 1945 Arrival Date: 06/07/2021 Time: 20:17 Bed 27 Private MD: ED Physician Nahum Krause HPI: 06/07 21:52 This 75 yrs old Female presents to ER via EMS with complaints of Hip pain. jr8 21:52 The patient or guardian reports deformity, pain. that occurred at home, sustained from jr8 a fall, the right lower extremity is shortened, right leg is externally rotated, The patient is not able to ambulate. Patient is not able to bear weight. The patient's discomfort radiates to the right leg. Onset: The symptoms/episode began/occurred acutely, today. Modifying factors: The symptoms are alleviated by nothing, the symptoms are aggravated by any movement. Associated signs and symptoms: Loss of consciousness: the patient experienced no loss of consciousness, Pertinent positives: None. Severity of symptoms: At their worst the symptoms were moderate, in the emergency department the symptoms are unchanged. The patient has not experienced similar symptoms in the past. The patient has not recently seen a physician. Patient had accidental fall at home resulting in pain to right hip. EMS upon arrival noted that patient's hip was shortened and externally rotated on right side. Patient denies any other trauma at this time. Patient was given pain medicine prior to arrival but still moderate pain.. Historical: - Allergies: 21:46 Codeine; ss7 21:46 PENICILLINS; ss7 - Home Meds: 21:46 levothyroxine oral [Active]; ss7 - PMHx: 21:46 BREAST CA; Depression; Hypothyroidism; ss7 - PSHx: 21:46 right mastectomy; ss7 - Immunization history:: Client reports receiving the 2nd dose of the Covid vaccine. - Social history:: Smoking status: Patient denies any tobacco usage or history of. ROS: 21:52 Eyes: Negative for injury, pain, redness, and discharge, ENT: Negative for injury, jr8 pain, and discharge, Neck: Negative for injury, pain, and swelling, Cardiovascular: Negative for chest pain, palpitations, and edema, Respiratory: Negative for shortness of breath, cough, wheezing, and pleuritic chest pain, Abdomen/GI: Negative for abdominal pain, nausea, vomiting, diarrhea, and constipation, Back: Negative for injury and pain, Skin: Negative for injury, rash, and discoloration, Neuro: Negative for headache, weakness, numbness, tingling, and seizure. 21:52 MS/extremity: Positive for injury or acute deformity, decreased range of motion, pain, tenderness, of the right hip. Exam: 21:52 Cardiovascular: Regular rate and rhythm with a normal S1 and S2. No gallops, murmurs, jr8 or rubs. Normal PMI, no JVD. No pulse deficits. Respiratory: Lungs have equal breath sounds bilaterally, clear to auscultation and percussion. No rales, rhonchi or wheezes noted. No increased work of breathing, no retractions or nasal flaring. Abdomen/GI: Soft, non-tender, with normal bowel sounds. No distension or tympany. No guarding or rebound. No evidence of tenderness throughout. Back: No spinal tenderness. No costovertebral tenderness. Full range of motion. Skin: Warm, dry with normal turgor. Normal color with no rashes, no lesions, and no evidence of cellulitis. Neuro: Awake and alert, GCS 15, oriented to person, place, time, and situation. Cranial nerves II-XII grossly intact. Motor strength 5/5 in all extremities. Sensory grossly intact. 21:52 Constitutional: The patient appears alert, awake, in obvious pain. 21:52 Musculoskeletal/extremity: Extremities: grossly normal except: noted in the right leg: Patient has moderate pain to the right hip. Right leg shortened and externally rotated. 2+ pulses dorsal podalic's to affected extremity with normal sensation. Decreased range of motion secondary to pain and deformity. All other extremities unremarkable. Vital Signs: 20:20 BP 163 / 75; Pulse 69; Resp 18; Pulse Ox 98% on R/A; Weight 83.91 kg; Height 5 ft. 1 ss7 in. (154.94 cm); 20:30 BP 146 / 93; Pulse 77; Resp 18; Pulse Ox 100% on R/A; ss7 20:56 BP 171 / 81; Pulse 82; Resp 18; Pulse Ox 98% on R/A; ss7 21:24 BP 157 / 76; Pulse 102; Resp 16; Pulse Ox 90% on R/A; ss7 21:30 BP 117 / 105; Pulse 103; Resp 16; Pulse Ox 100% on Non-rebreather mask; ss7 21:35 BP 113 / 49; Pulse 98; Resp 20; Pulse Ox 100% on Non-rebreather mask; ss7 21:40 BP 156 / 80; Pulse 94; Resp 18; Pulse Ox 100% on Non-rebreather mask; ss7 22:00 BP 150 / 65; Pulse 84; Resp 18; Pulse Ox 100% on R/A; ss7 22:15 BP 149 / 70; Pulse 81; Resp 18; Pulse Ox 100% on R/A; ss7 22:30 BP 146 / 66; Pulse 82; Resp 18; Pulse Ox 100% on R/A; ss7 23:00 BP 146 / 69; Pulse 88; Resp 18; Pulse Ox 100% on R/A; 7 20:20 Body Mass Index 34.96 (83.91 kg, 154.94 cm) 7 Procedures: 21:52 Moderate sedation: Pre-procedure assessment: the patient has been NPO 3 hour(s) prior [facility] to arrival, ASA physical classification: II - mild/mod systemic disease that does not interfere with daily routines, Airway assessment: able to hyperextend neck, able to maintain airway, can open mouth without difficulty, Mallampati classification of tongue size: III - uvula can be visualized, but faucial pillars and soft palate are not appreciated, Monitoring during procedure: school bus monitor, continuous pulse oximetry, nurse at bedside at all times, Medications employed: Ketamine, 50 mg(s), Post-procedure assessment: the patient is mildly sedated, Martinez sedation score: 4 - brisk response to a light glabellar tap, Respiratory status: requires supplemental oxygen to maintain acceptable oxygen saturation, a reversal agent was not used, Patient recovered well post sedation for imaging.. MDM: 20:19 Medical screening is not applicable. jr8 21:52 Data reviewed: vital signs, nurses notes, lab test result(s), radiologic studies, plain jr8 films. Data interpreted: Pulse oximetry: on room air is 98 %. Interpretation: normal. Counseling: I had a detailed discussion with the patient and/or guardian regarding: the historical points, exam findings, and any diagnostic results supporting the discharge/admit diagnosis, lab results, radiology results, the need to transfer to another facility, [facility] does not immediately have the required specialist. ED course: We have no orthopedics at this time. Will transfer patient for acute right hip fracture. Attempting to transfer to [facility].. 06/07 20:20 Order name: CBC with Diff; Complete Time: 21:00 8 06/07 20:20 Order name: Basic Metabolic Panel; Complete Time: 21:58 8 06/07 20:20 Order name: Protime (+inr); Complete Time: :8 06/07 20:20 Order name: Ptt, Activated; Complete Time: 21:8 06/07 20:21 Order name: Hip Right 2 View XRAY; Complete Time: 22:30 8 06/07 22:02 Order name: COVID-19 (Coronavirus) Document "Date of Onset" if Symptomatic jr8 Administered Medications: 20:36 Drug: Ketamine 15 mg Route: IVP; Site: left hand; ss7 23:29 Follow up: Response: Pain is unchanged, physician notified ss7 20:39 Drug: NS 0.9% 1000 ml Route: IV; Rate: 1000 ml; Site: left hand; ss7 21:40 Follow up: IV Status: Completed infusion ss7 20:50 Drug: Ketamine 15 mg Route: IVP; Site: left hand; ss7 23:30 Follow up: Response: Pain is unchanged, physician notified ss7 21:04 Drug: Dilaudid (HYDROmorphone) 1 mg Route: IVP; Site: left hand; ss7 23:30 Follow up: Response: Pain is unchanged, physician notified ss7 21:04 Drug: Ketamine 50 mg Route: IVP; Site: left hand; ss7 23:31 Follow up: Response: Pain is decreased ss7 21:24 Drug: Robaxin (methocarbamol) 1 grams Route: IVPB; Infused Over: 1 hrs; Site: left hand;ss7 22:30 Drug: Dilaudid (HYDROmorphone) 2 mg Route: IVP; Rate: 3 ml/min; Infused Over: 30 mins; ss7 Site: left hand; 23:34 Follow up: Response: No adverse reaction; RASS: Alert and Calm (0) 7 Disposition: 06/08 07:10 Co-signature as Attending Physician, Nahum Krause MD I agree with the assessment and ama plan of care. Disposition Summary: 06/07/21 23:16 Transfer Ordered Transfer Location: [facility] jr8 Reason: Higher level of care jr8 Condition: Stable jr8 Problem: new jr8 Symptoms: have improved jr8 Accepting Physician: Dr. Turner(06/07/21 23:54) tw5 Diagnosis - Displaced fracture of greater trochanter of right femur, initial encounter for jr8 closed fracture Forms: - Medication Reconciliation Form jr8 - SBAR form jr8 Signatures: Dispatcher [employer] EDMS Nahum Krause MD MD cha Roszak, Josh, PA PA jr8 Mariah Jones tw5 Shahla Hernández RN RN ss7 Corrections: (The following items were deleted from the chart) 06/07 23:54 23:16 Dr. Turner jr8 tw5
--- NOTE | 2021-06-07 23:17 | ER ---
Nurse's Notes [facility] Name: Rachel Walker Age: 75 yrs Sex: Female : 1945 Arrival Date: 06/07/2021 Time: 20:17 Bed 27 Private MD: Diagnosis: Displaced fracture of greater trochanter of right femur, initial encounter for closed fracture Presentation: 06/07 20:20 Chief complaint: EMS states: pt fell in her bathroom at home. C/o right hip pain. 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 Coronavirus screen: Vaccine status: Patient reports receiving the 2nd dose of the covid vaccine. Ebola Screen: No symptoms or risks identified at this time. Initial Sepsis Screen: Does the patient meet any 2 criteria? No. Patient's initial sepsis screen is negative. Does the patient have a suspected source of infection? No. Patient's initial sepsis screen is negative. Risk Assessment: Do you want to hurt yourself or someone else? Patient reports no desire to harm self or others. Onset of symptoms was June 07, 2021. 20:20 Acuity: MAYA 2 ss7 21:44 Method Of Arrival: EMS: [facility] ss7 Triage Assessment: 20:20 General: Appears distressed, uncomfortable, Behavior is agitated, anxious. ss7 20:20 Pain: Complains of pain in pelvis. EENT: No deficits noted. Neuro: No deficits noted. ss7 Cardiovascular: Heart tones S1 S2. Respiratory: Breath sounds are clear bilaterally. GI: No deficits noted. : No deficits noted. Derm: No deficits noted. Musculoskeletal: shortening and external rotation of the right hip. Injury Description: Deformity sustained to right hip. Historical: - Allergies: 21:46 Codeine; ss7 21:46 PENICILLINS; ss7 - Home Meds: 21:46 levothyroxine oral [Active]; ss7 - PMHx: 21:46 BREAST CA; Depression; Hypothyroidism; ss7 - PSHx: 21:46 right mastectomy; ss7 - Immunization history:: Client reports receiving the 2nd dose of the Covid vaccine. - Social history:: Smoking status: Patient denies any tobacco usage or history of. Screenin:50 Abuse screen: Denies threats or abuse. Nutritional screening: No deficits noted. ss7 Tuberculosis screening: No symptoms or risk factors identified. Fall Risk Fall in past 12 months (25 points). IV access (20 points). Assessment: 20:36 Reassessment: ketamine 15mg IV given. Pt reports no improvement and she thinks it makes ss7 her pain worse. . 20:40 General: see triage. ss7 20:50 Reassessment: Jovani informed of no improvement with Ketamine 15mg iv. VO for an ss7 additional dose of ketamine 15mg ivp given. Pt tolerated well but states still no improvement. . 21:04 Reassessment: No improvement from ketamine 30mg ivp total. Jovani informed. Xray unable ss7 to be performed. VO for Dilaudid 1mg ivp given. SS. 21:04 Reassessment: 2123: Pt still c/o pain. Jovani at bedside with order to give Ketamine 50mg ss7 IVP to assist with xray. Pt attached to cm and placed on NRB. Ketamine 50mg given IVP. Pt tolerated well and xray able to be completed. Stayed with patient for 15minutes to ensure no change in status. Pt remains stable. Daughter now at bedside. SS. 21:24 Reassessment: Pt c/o pain to right hip. Jovani notified. VO given for 1gram of robaxin IV ss7 and dilaudid 2mg in 100ml over 30minutes. Given. Pt tolerated well.Will continue to m monitor. . Vital Signs: 20:20 BP 163 / 75; Pulse 69; Resp 18; Pulse Ox 98% on R/A; Weight 83.91 kg; Height 5 ft. 1 ss7 in. (154.94 cm); 20:30 BP 146 / 93; Pulse 77; Resp 18; Pulse Ox 100% on R/A; ss7 20:56 BP 171 / 81; Pulse 82; Resp 18; Pulse Ox 98% on R/A; ss7 21:24 BP 157 / 76; Pulse 102; Resp 16; Pulse Ox 90% on R/A; ss7 21:30 BP 117 / 105; Pulse 103; Resp 16; Pulse Ox 100% on Non-rebreather mask; ss7 21:35 BP 113 / 49; Pulse 98; Resp 20; Pulse Ox 100% on Non-rebreather mask; ss7 21:40 BP 156 / 80; Pulse 94; Resp 18; Pulse Ox 100% on Non-rebreather mask; ss7 22:00 BP 150 / 65; Pulse 84; Resp 18; Pulse Ox 100% on R/A; ss7 22:15 BP 149 / 70; Pulse 81; Resp 18; Pulse Ox 100% on R/A; ss7 22:30 BP 146 / 66; Pulse 82; Resp 18; Pulse Ox 100% on R/A; ss7 23:00 BP 146 / 69; Pulse 88; Resp 18; Pulse Ox 100% on R/A; ss7 20:20 Body Mass Index 34.96 (83.91 kg, 154.94 cm) ss7 ED Course: 20:17 Patient arrived in ED. mw2 20:19 Jovani Vazquez PA is PHCP. jr8 20:19 Nahum Krause MD is Attending Physician. jr8 20:20 Shahla Hernández RN is Primary Nurse. ss7 20:20 Arm band placed on right wrist. pt arrived on spine board. ss7 20:36 Basic Metabolic Panel Sent. ss7 20:36 Protime (+inr) Sent. ss7 20:36 Ptt, Activated Sent. ss7 20:36 CBC with Diff Sent. ss7 20:36 Hip Right 2 View XRAY Sent. ss7 21:41 Hip Right 2 View XRAY In Process Unspecified. EDMS 21:46 Triage completed. ss7 21:50 No provider procedures requiring assistance completed. Maintain EMS IV. Dressing ss7 intact. Good blood return noted. Site clean \\T\\ dry. Gauge \\T\\ site: 22G Left hand. 21:50 Bed in low position. Call light in reach. Side rails up X2. Adult w/ patient. Cardiac ss7 monitor on. Pulse ox on. NIBP on. Warm blanket given. 21:55 initiated a transfer with Jossue from [facility]. mw2 22:42 COVID-19 (Coronavirus) Document "Date of Onset" if Symptomatic Sent. ss7 22:45 initiated a transfer with May from [facility]. mw2 22:50 administrative approval given by May Sahni/ patient has been accepted to [address] to the ER/ Dr. Turner accepted the patient in transfer/report to be called to [phone]. 23:23 Report given to Joanie with [facility] ER. ss7 23:32 Patient transferred, IV remains in place. ss7 23:32 Report given to Sancho with [facility]. ss7 Administered Medications: 20:36 Drug: Ketamine 15 mg Route: IVP; Site: left hand; ss7 23:29 Follow up: Response: Pain is unchanged, physician notified ss7 20:39 Drug: NS 0.9% 1000 ml Route: IV; Rate: 1000 ml; Site: left hand; ss7 21:40 Follow up: IV Status: Completed infusion ss7 20:50 Drug: Ketamine 15 mg Route: IVP; Site: left hand; ss7 23:30 Follow up: Response: Pain is unchanged, physician notified 7 21:04 Drug: Dilaudid (HYDROmorphone) 1 mg Route: IVP; Site: left hand; ss7 23:30 Follow up: Response: Pain is unchanged, physician notified ss7 21:04 Drug: Ketamine 50 mg Route: IVP; Site: left hand; ss7 23:31 Follow up: Response: Pain is decreased ss7 21:24 Drug: Robaxin (methocarbamol) 1 grams Route: IVPB; Infused Over: 1 hrs; Site: left hand;ss7 22:30 Drug: Dilaudid (HYDROmorphone) 2 mg Route: IVP; Rate: 3 ml/min; Infused Over: 30 mins; 7 Site: left hand; 23:34 Follow up: Response: No adverse reaction; RASS: Alert and Calm (0) 7 Outcome: 23:16 ER care complete, transfer ordered by . 8 23:32 Transferred by ground EMS Note: [facility] ER ss7 23:32 Condition: stable 23:54 Patient left the ED. tw5 Signatures: Dispatcher [employer] EDMS Jovani Vazquez PA PA jr8 Eva Henderson 2 Mariah Jones tw5 Shahla Hernández RN RN ss7 Corrections: (The following items were deleted from the chart) 23:25 21:51 General: see triage. 7 ss7 23:25 21:54 Reassessment: 2123: Pt still c/o pain. Jovani at bedside with order to give ss7 Ketamine 50mg IVP to assist with xray. Pt attached to cm and placed on NRB. Ketamine 50mg given IVP. Pt tolerated well and xray able to be completed. Stayed with patient for 15minutes to ensure no change in status. Pt remains stable. Daughter now at bedside. SS. ss7 23:25 22:42 Reassessment: Pt c/o pain to right hip. Jovani notified. VO given for 1gram of ss7 robaxin IV and dilaudid 2mg in 100ml over 30minutes. Given. Pt tolerated well.Will continue to m monitor. . ss7
[2021-06-08 01:42] VITALS: O2SAT 100
[2021-06-08 01:49] VITALS: BP 146/69
== END 2021-06-07 23:54 | disposition short-term general hospital (02) ==
LOC: ER 20:11
DX: S72.111A Displaced fracture of greater trochanter of right femur, initial encounter for closed fracture (principal); W18.30XA Fall on same level, unspecified, initial encounter; Y92.009 Unspecified place in unspecified non-institutional (private) residence as the place of occurrence of the external cause; E03.9 Hypothyroidism, unspecified; Z85.3 Personal history of malignant neoplasm of breast; Z90.11 Acquired absence of right breast and nipple; Z88.0 Allergy status to penicillin; Z88.5 Allergy status to narcotic agent; Z20.822 Contact with and (suspected) exposure to COVID-19
CPT/HCPCS: 36415; 80048; 85025; 85610; 85730; 96361; 96374; 96375; 99285; J1170; J2800; J7030; U0002

== ENCOUNTER 2021-06-10 15:14 | Inpatient (IN) | payer OTHER, MEDICARE ==
--- OUTSIDE RECORDS SUMMARY | 2021-06-10 15:57 | XMS REPORT | Continuity of Care Document ---
:1945 Author Organization [facility] t Address [address] [place] [place] [address] Care Team Providers Name Role Phone [phone] Primary Care Physician Unavailable Shashank BLANCO Attending Clinician Unavailable SHARAN Attending Clinician Unavailable Radiology Attending Clinician Unavailable RADIOLOGY Attending Clinician Unavailable Doctor Unassigned, Name Attending Clinician Unavailable Jose Antonio PATEL III Attending Clinician Unavailable Theodore CAMACHO Admitting Clinician Unavailable Jose Antonio PATEL III Admitting Clinician Unavailable Payers Payer Name Policy Type Policy Number Effective Date Expiration Date [facility] A AND [id number] 2011 B 00:00:00 [employer]-SECONDARY ONLY [id number] 2012 00:00:00 MEDICARE PART A \T\ [id number] 2011 B 00:00:00 [facility] [id number] 2012 MEDICARE SUPPLEMENT 00:00:00 Problems This patient has no known problems. Allergies, Adverse Reactions, Alerts Allergy Allergy Status Severity Reaction(s) Onset Inactive Treating Comm ents Source Name Type Date Date Clinician CODEINE DRUG Active Unknown-Cmnt 2018- Uni vers [facility]GR[facility]I 04-23 ity of 00:00: [address] PENICILL DRUG Active Unknown-Cmnt 2018- Un garyson IN [facility] 04-23 ity of 00:00: [address] Medications This patient has no known medications. Procedures This patient has no known procedures. Encounters Start End Encounter Admission Attending Care Care Encounter Source Date/Time Date/Time Type Type Clinicians Facility Department ID 2020-12-20 2020-12-20 Outpatient PRADEEP DESAI MDA [id number] Sal SINGH 14:32:34 14:32:34 [facility] 2020-12-20 2020-12-20 Outpatient PASTOR NUNN [facility] [id number] 13:27:07 13:27:07 Jason hill 2020-12-20 2020-12-20 Outpatient PRADEEP TSANG [facility] [id number] 10:02:16 11:22:07 RHETT Jason hill 2019-04-01 2019-04-01 [facility] [id number] 10:33:00 23:59:00 [place]counter [place] [id number] [place] [id number] [place] [id number] 2019-04-01 2019-04-01 Outpatient R RADIOLOGY [facility] [id number] [facility] 10:33:11 10:32:00 [facility] 2019-04-01 2019-04-01 [facility] [id number] 10:30:00 10:32:00 Encounter [place] [id number] [place] [id number] [place] [id number] 2019-04-01 2019-04-01 Orders Doctor ILENE [id number] 00:00:00 00:00:00 Only Unassigned, DONNA [id number] Mark [facility] [id number] 2019-02-20 2019-02-20 Emergency X JORGE III, [facility] ERT [id number] [facility] 12:58:20 16:08:00 LINETTE leonor [facility] Results This patient has no known results.
[2021-06-10 18:33] LABS: Urine Appearance Clear (Clear); Urine Bilirubin Negative (Negative); Urine Blood Negative (Negative); Urine Color Yellow (Yellow); Urine Glucose Negative (Negative); Urine Protein Negative (Negative); Urine Specific Gravity 1.015 (1.005-1.030); Urine Urobilinogen 0.2 mg/dL (0.2-1.0); Urine pH 5.5 (5.0-7.0)
[2021-06-10 18:34] LABS: Urine Microscopic Reflex ORDER UMIC
[2021-06-10 18:39] LABS: Urine Bacteria <20 /HPF (<20); Urine RBC NONE SEEN /HPF (NONE SEEN)
[2021-06-10] MEDS ORDERED: DOCUSATE NA/SENNA CONC 1 TAB PO PRN (19:32)
[2021-06-10] MEDS ORDERED: LORAZEPAM 0.5 MG TABLET PO PRN (19:33)
[2021-06-10] MEDS ORDERED: MECLIZINE HCL 12.5 MG TAB PO PRN (19:34)
[2021-06-10] MEDS: ACETAMINOPHEN 500 MG TAB PO SCH (19:57)
[2021-06-10] MEDS: CELECOXIB 100 MG CAPSULE PO SCH (19:58)
[2021-06-10] MEDS: CALCIUM CARBONATE 500 MG TAB PO SCH (19:58)
[2021-06-10] MEDS: GABAPENTIN 100 MG CAP PO SCH (19:58)
[2021-06-10] MEDS: QUETIAPINE 100MG TAB PO SCH (19:58)
[2021-06-10] MEDS ORDERED: BUPROPRION HCL S.R. 150MG TAB PO SCH (20:00)
[2021-06-10] MEDS ORDERED: TRAZODONE 50 MG TABLET PO SCH (21:00)
[2021-06-11] MEDS: OXYCODONE HCL 5 MG TAB PO PRN ×2 (01:00→18:19)
[2021-06-11] MEDS: ACETAMINOPHEN 500 MG TAB PO SCH ×3 (04:45→20:26)
[2021-06-11] MEDS: LEVOTHYROXINE SOD 0.05 MG TABLET PO SCH (05:08)
[2021-06-11 06:03] LABS: Absolute Lymphocytes (CBC) 2.8 K/uL (0.7-4.9); Hematocrit 28.6 % (36.0-45.0); Lymphocytes % 41.4 % (15.3-44.8); MPV 7.5 fL (7.6-11.3); RBC Red Blood Cell Count 3.21 M/uL (3.86-4.86)
[2021-06-11 06:21] LABS: Albumin 2.8 g/dL (3.4-5.0); Magnesium 2.1 mg/dL (1.8-2.4); Potassium 4.3 mmol/L (3.5-5.1); Prealbumin 14.6 mg/dL (20-40)
[2021-06-11] MEDS: LIDOCAINE 4% PATCH TOP SCH (07:36)
[2021-06-11] MEDS: CALCIUM CARBONATE 500 MG TAB PO SCH ×2 (07:37→20:26)
[2021-06-11] MEDS: CELECOXIB 100 MG CAPSULE PO SCH ×2 (07:37→20:28)
[2021-06-11] MEDS: VITAMIN D 1000 UNIT TAB PO SCH (07:37)
[2021-06-11] MEDS: VENLAFAXINE HCL XR 75 MG CAP PO SCH (07:37)
[2021-06-11] MEDS ORDERED: ZONISAMIDE 25 MG PO SCH (08:00)
[2021-06-11] MEDS: BUPROPRION HCL S R PO SCH ×2 (08:34→20:26)
[2021-06-11] MEDS: ENOXAPARIN 40 MG/0.4 ML SQ SCH (16:48)
[2021-06-11] MEDS: TRAZODONE 100 MG TABLET PO SCH (20:26)
[2021-06-11] MEDS: GABAPENTIN 100 MG CAP PO SCH (20:28)
[2021-06-11] MEDS: QUETIAPINE 100MG TAB PO SCH (20:28)
[2021-06-12] MEDS: ACETAMINOPHEN 500 MG TAB PO SCH ×3 (04:12→20:08)
[2021-06-12] MEDS: LEVOTHYROXINE SOD 0.05 MG TABLET PO SCH (05:32)
[2021-06-12] MEDS: LIDOCAINE 4% PATCH TOP SCH (07:01)
[2021-06-12] MEDS: BUPROPRION HCL S R PO SCH ×2 (07:04→20:16)
[2021-06-12] MEDS: VENLAFAXINE HCL XR 75 MG CAP PO SCH (07:05)
[2021-06-12] MEDS: CELECOXIB 100 MG CAPSULE PO SCH ×2 (07:05→20:08)
[2021-06-12] MEDS: VITAMIN D 1000 UNIT TAB PO SCH (07:05)
[2021-06-12] MEDS: CALCIUM CARBONATE 500 MG TAB PO SCH ×2 (07:05→20:08)
[2021-06-12] MEDS: ENOXAPARIN 40 MG/0.4 ML SQ SCH (07:05)
--- NOTE | 2021-06-12 09:37 | PN ---
Date of Progress Note: 06/12/2021 Subjective: The patient was seen this morning for followup. She was sleeping, arousable, not in dis tress. Denied any complaints. No constipation. No abdominal pain. Objective: Vital Signs: Reviewed. HEENT: Unremarkable. Lungs: Clear to auscultation. Heart: Sounds normal. Abdomen: Soft. Bowel sounds normal. No guarding, rigidity, tenderness, distention. Extremities: No leg edema. Right lateral hip examined. Surgical site appears normal. Has sutures present. No evidence of any gapping, discharge, bleeding or redness. Impression: 1.Right hip fracture. 2.Hypertension. 3.Anxiety. 4.Depression. 5.Anemia due to acute blood loss. Plan: We will continue current medications. Continue current DVT prophylaxis and pain medications. We will continue to follow with Dr. Alaniz for physical therapy. OMID/MODL Voice ID: [id number] Report ID: [id number]
[2021-06-12] MEDS: QUETIAPINE 100MG TAB PO SCH (20:07)
[2021-06-12] MEDS: GABAPENTIN 100 MG CAP PO SCH (20:08)
[2021-06-12] MEDS: TRAZODONE 100 MG TABLET PO SCH ×2 (20:10→20:15)
[2021-06-13] MEDS: ACETAMINOPHEN 500 MG TAB PO SCH ×3 (03:46→20:31)
[2021-06-13] MEDS: OXYCODONE HCL 5 MG TAB PO PRN (07:23)
[2021-06-13] MEDS: LEVOTHYROXINE SOD 0.05 MG TABLET PO SCH (07:24)
[2021-06-13] MEDS: ENOXAPARIN 40 MG/0.4 ML SQ SCH (07:24)
[2021-06-13] MEDS: CALCIUM CARBONATE 500 MG TAB PO SCH ×2 (07:24→20:31)
[2021-06-13] MEDS: ACYCLOVIR 400 MG TABLET PO SCH ×2 (07:24→20:31)
[2021-06-13] MEDS: VITAMIN D 1000 UNIT TAB PO SCH (07:24)
[2021-06-13] MEDS: CELECOXIB 100 MG CAPSULE PO SCH ×2 (07:24→20:31)
[2021-06-13] MEDS: LIDOCAINE 4% PATCH TOP SCH (07:24)
[2021-06-13] MEDS: VENLAFAXINE HCL XR 75 MG CAP PO SCH (07:24)
[2021-06-13] MEDS: BUPROPRION HCL S R PO SCH ×2 (07:25→20:32)
--- NOTE | 2021-06-13 11:31 | HP ---
Date of Admission: 06/10/2021 Chief Complaint: Hip pain. History Of Present Illness: This is a 75-year-old pleasant female patient, who fell down in her bath room over a cord that was going across the floor and she tripped over it and fell. The patient had r ight intertrochanteric fracture and she was treated at [facility] in [place] where she had surgery done and yesterday evening she was brought to our inpatient rehab floor for rehab therap y. When I saw her this morning, she was feeling fine, had no specific complaints except for hip pain . Her pain is well controlled with current pain medications. Denies any abdominal pain. No chest p ain. No shortness of breath. No constipation or diarrhea problem. Allergies: TO CODEINE CAUSING RASH AND PENICILLIN CAUSING ANAPHYLACTIC REACTION. Medications: Current medications list reviewed. Outpatient medication list includes Fosamax 5 mg da cedrick, atorvastatin 40 mg daily in the evening, Caltrate plus D 2 times a day, levothyroxine 100 mcg da cedrick, and she takes multiple medications from her psychiatrist and that medication includes bupropion, Seroquel, trazodone, venlafaxine, and Zonisamide. Review of Systems: Musculoskeletal: As mentioned above. All other systems reviewed. Past Medical History: Significant for hypothyroidism, impaired fasting glucose, COPD, mixed hyperlip idemia, right breast cancer, anxiety, depression, and osteoporosis. Past Surgical History: Right breast lumpectomy done on December 14, 2010, appendectomy, and knee nicole rgery. Family History: Father had heart disease. Mother, heart disease and stroke. Sister with stroke. Social History: Prior history of smoking. Use of alcohol occasional. Physical Examination: Vital Signs: Temperature 98.1, pulse 73, respiratory rate 16, blood pressure 111/58, oxygen saturati on 94%, weight 134 pounds, height 61 inches. General: Awake, alert, oriented, not in distress. HEENT: Head atraumatic, normocephalic. Conjunctivae nonerythematous. Sclerae white. Mouth, no thr ush or edema noted. Ears/Nose, no mass, lesion, discharge noted. Neck: Supple. No JVD, lymph nodes, bruit, thyromegaly noted. Lungs: Bilateral good equal air entry. Clear to auscultation. No rhonchi. No rales. Heart: Normal heart sounds, no murmur or gallop. Abdomen: Soft, bowel sounds normal. No guarding, rigidity, tenderness, mass, hepatosplenomegaly, dis tention, or bruit noted. Extremities: No leg edema. No calf tenderness. Skin: No rash, ulcer, cellulitis. Lymphatics: No lymph node enlargement in neck, supraclavicular, infraclavicular region. Neuro: No focal neurological deficit. Chest: Unremarkable. External Genitalia: Deferred. Rectal: Deferred. Laboratory Data: White count 6.8, hemoglobin 9.7, platelets 202. Sodium 142, potassium 4.3, chlorid e 113, bicarb 27, BUN 16, creatinine 0.70, glucose 93, albumin 2.8. Urinalysis negative. COVID-19 t est negative. Impression: 1.Right hip intertrochanteric fracture surgery. 2.Anemia due to acute blood loss. 3.Hypothyroidism. 4.Mixed hyperlipidemia. 5.Chronic obstructive pulmonary disease. 6.Anxiety. 7.Depression. 8.Right breast cancer. 9.Osteoporosis. 10.Malnutrition. 11.Impaired fasting glucose. Plan: We will admit the patient to hospital to rehab floor. Consult Dr. Alaniz from Rehab to [facility] physical therapy. We will continue her current medication. DVT prophylaxis will be continued usi ng Lovenox per order. We will continue her home medications per order and continue also current pain medications. Continue her stool softener and I will see her tomorrow. Her medication for anxiety d epression and statin drug as well as her levothyroxine will be continued per order. OMID/MODL Voice ID: [id number]
[2021-06-13] MEDS: GABAPENTIN 100 MG CAP PO SCH (20:31)
[2021-06-13] MEDS: QUETIAPINE 100MG TAB PO SCH (20:32)
[2021-06-13] MEDS: ZONISAMIDE 25 MG PO SCH (20:35)
[2021-06-13] MEDS: TRAZODONE 100 MG TABLET PO SCH ×2 (21:00→22:24)
--- NOTE | 2021-06-14 01:54 | PN ---
Date of Progress Note: 06/13/2021 Subjective: The patient was seen this morning for followup. No new complaints or problems reported by the patient. Lying in bed, not in distress. She has some fever blister on her lips and it is on the lower lip and inside her lip and she gets that from time to time. She would like to get some med ication for that. She had a bowel movement yesterday. Objective: Vital Signs: Reviewed. HEENT: Examination unremarkable except presence of fever blister over the lower lip. Lungs: Clear to auscultation. Heart: Sounds normal. Abdomen: Soft. Bowel sounds normal. No guarding, rigidity, tenderness, or distention. Extremities: No leg edema. Impression: 1.Fever blister. 2.Hip fracture. 3.Anemia due to acute blood loss. 4.Osteoporosis. Plan: We will continue current medications. Continue current pain medication and physical therapy u nder guidance of Dr. Alaniz. Continue current anticoagulation therapy for DVT prophylaxis. We remi l start the patient on acyclovir 800 mg 2 times a day for fever blister. I will see her tomorrow for followup. OMID/MODL Voice ID: [id number] Report ID: [id number]
[2021-06-14] MEDS: ACETAMINOPHEN 500 MG TAB PO SCH ×3 (04:23→19:43)
[2021-06-14] MEDS: LEVOTHYROXINE SOD 0.05 MG TABLET PO SCH (05:11)
[2021-06-14] MEDS ORDERED: buPROPion HCL 100 MG TAB PO SCH (08:00)
[2021-06-14] MEDS: VENLAFAXINE HCL XR 75 MG CAP PO SCH (08:00)
[2021-06-14] MEDS: ACYCLOVIR 400 MG TABLET PO SCH ×2 (08:06→19:43)
[2021-06-14] MEDS: LIDOCAINE 4% PATCH TOP SCH (08:06)
[2021-06-14] MEDS: ENOXAPARIN 40 MG/0.4 ML SQ SCH (08:06)
[2021-06-14] MEDS: VITAMIN D 1000 UNIT TAB PO SCH (08:07)
[2021-06-14] MEDS: CELECOXIB 100 MG CAPSULE PO SCH ×2 (08:07→19:43)
[2021-06-14] MEDS: CALCIUM CARBONATE 500 MG TAB PO SCH ×2 (08:07→19:44)
[2021-06-14] MEDS: OXYCODONE HCL 5 MG TAB PO PRN (09:03)
[2021-06-14] MEDS: BUPROPION 200 MG PO SCH ×2 (09:15→19:47)
--- NOTE | 2021-06-14 11:09 | PN ---
Date of Progress Note: 06/14/2021 Subjective: The patient was seen this morning for followup. No new complaints or problems reported by the patient. She was sitting in wheelchair, having little more pain today in her hip area because of more therapy that she did yesterday. Her fever blister from the lower lip and inside her lip are a feels better with use of acyclovir, which was started yesterday. Denies any constipation. Objective: Vital Signs: Reviewed. HEENT: Unremarkable except fever blister noted on the lower lip area. Lungs: Clear to auscultation. No rales. No rhonchi. Heart: Sounds normal. Abdomen: Soft. No guarding, rigidity, tenderness, or distention. Extremities: No leg edema. Impression: 1.Right hip fracture. 2.Fever blister. 3.Hypertension. 4.Hyperlipidemia. 5.Anemia due to acute blood loss. Plan: We will go ahead and continue current pain medication. She is on Lovenox for DVT prophylaxis and her last dose of Lovenox was this morning. We will discontinue that and starting tomorrow we remi l start her on Eliquis 2.5 mg 2 times a day for DVT prophylaxis. Continue acyclovir. Continue physi javier therapy under guidance of Dr. Alaniz. I will see her tomorrow for followup. OMID/MODL Voice ID: [id number] Report ID: [id number]
[2021-06-14] MEDS: GABAPENTIN 100 MG CAP PO SCH ×2 (13:53→19:44)
[2021-06-14] MEDS ORDERED: LIDOCAINE 4% PATCH TOP ONE (14:00)
--- NOTE | 2021-06-14 17:30 | R.HP ---
HISTORY AND PHYSICAL FACILITY: [facility] ENCOUNTER DATE AND TIME: 06/11/2021 17:25 (CDT) MR#: [id number] NAME LENIN DIAS ADDRESS: [address] [place] [address]: [place]IP [id number] PHONE: DATE OF : 1945 AGE: 75 SSN# [id number] GENDER: Female MARITAL STATUS PRE-HOSPITAL LIVING SETTING 01 - Home (private home/apt. board/care, assisted living, care home, transitional living) PRE-HOSPITAL LIVING WITH Family/Relatives ENCOUNTER PHYSICIAN: Dr. Nuno Alaniz M.D. REFERRING DOCTOR: PRAKASH ANSARI MD DATE OF ADMISSION: 06/10/2021 15:54 (CDT) REFERRING FACILITY [facility] HOME TYPE AND DETAILS: Type of home: single family house # of steps to enter the residence: 1 # of steps within the residence: 0 # of levels in the residence: 1 ONSET DATE: 06/08/2021 PRIMARY DIAGNOSIS-RELATED SURGERIES: CEPHALOMEDULLARY NAILING RIGHT FEMUR HISTORY OF PRESENT ILLNESS (HPI): Pt. is a 75 yo Right-handed female. On 06/08/2021 she was admitted to [facility] with diagnosis RIGHT INTERTROCHANTERIC FEMUR FX (). Her impairment category is Orthopaedic Disorders 08 - Unilateral Hip Fracture (08.11). Pre-morbidly, Pt. was independent/mod-I in Locomotion, Safety Awareness, Social Cognition, Balance, a nd Transfers Control; and she had good Sphincter Control, Communication, Self-Care, and Endurance. Currently, she has deficits of Locomotion, Social Cognition, Balance, Sphincter Control, Self-Care, C ommunication, Endurance, Transfers Control, and Safety Awareness. Pt. is now referred to [facility] for acute in-patient rehabilitation in order to maximize patient's functional independence in activities of daily living, strength, ROM, and mobi lity. Patient has realistic goal of being discharged at assistance level 7-Ind to reside at Home with Fami ly/Relatives. MEDICATION ALLERGIES: No Known Drug Allergies (NKDA) ENVIRONMENTAL ALLERGIES: - Substance Allergies None Known - Other Allergies None Known PAST MEDICAL HISTORY: HYPOTHYROIDISM ANXIETY BREAST CANCER FALLS LEUKOCYTOSIS ACUTE PAIN ACUTE BLOOD LOSS ANEMIA DEPRESSION PAST SURGICAL HISTORY: RIGHT MASTECTOMY LEFT ACL REPAIR SOCIAL HISTORY: - Home Living Family/Relatives REVIEW OF SYSTEMS: - Gen No Chills Fatigue No Fever - Eyes No Double Vision No itchiness - ENMT No Difficulty Swallowing - CVS Chest Discomfort No Chest Pain Fatigue No Weight Gain - Resp No Cough No Shortness of Breath - GI Continent No Abdominal Pain No Constipation No Diarrhea - Continent No Kidney Pain No Painful Urination No Urinary Urgency - MSK No Joint Pain No Muscle Cramps Stiffness - Skin No Itching No Rash No Suspicious Lesions - Neuro Coordination Difficulty No Difficulty with Concentration No Memory Loss No Seizures Weakness - Psych No Anxiety No Depression No HIV Exposure No Persistent Infections No Seasonal Allergies - Endo No Cold/Heat Intolerance No Excessive Hunger No Excessive Thirst No Excessive Urination PHYSICAL EXAM - Gen Alert and awake Lying in bed No apparent distress Oriented to: person, time, and place - Skin No breakdown No abnormalities - Eyes No abnormalities - ENMT No abnormalities - Neck No abnormalities - CVS RRR - Chest No abnormalities - Abd Soft - GI Non distended Deferred - No abnormalities - Ext Right hip surgical site has good hemostasis. - MSK 4+/5 weakness in right lower extremity - Neuro 4/5 strength right lower extremity. VITAL SIGNS Temperature: 98.2 F SBP/DBP: 121/54 Pulse: 80 Resp: 15 NURSING: - Shower allowing shower - Skin care per protocol PRECAUTIONS: - Weight Bearing Precaution WBAT right LE ACTIVITIES OOB only with supervision QI SCORES: - Self-Care A. Eating 03-Partial/moderate assistance B. Oral hygiene 03-Partial/moderate assistance C. Toileting hygiene 03-Partial/moderate assistance E. Shower/bathe self 03-Partial/moderate assistance F. Upper body dressing 03-Partial/moderate assistance G. Lower body dressing 02-Substantial/maximal assistance H. Putting on/taking off footwear 88-Not attempted due to medical condition or safety concerns - Mobility A. Roll left and right 03-Partial/moderate assistance B. Sit to lying 03-Partial/moderate assistance C. Lying to sitting on side of bed 03-Partial/moderate assistance D. Sit to stand 03-Partial/moderate assistance E. Chair/qar-xb-hukmu transfer 03-Partial/moderate assistance F. Toilet transfer 03-Partial/moderate assistance G. Car transfer 88-Not attempted due to medical condition or safety concerns I. Walk 10 feet 88-Not attempted due to medical condition or safety concerns J. Walk 50 feet with two turns 88-Not attempted due to medical condition or safety concerns K. Walk 150 feet 88-Not attempted due to medical condition or safety concerns L. Walking 10 feet on uneven surfaces 88-Not attempted due to medical condition or safety concerns M. 1 step (curb) 88-Not attempted due to medical condition or safety concerns N. 4 steps 88-Not attempted due to medical condition or safety concerns O. 12 steps 88-Not attempted due to medical condition or safety concerns P. Picking up object 88-Not attempted due to medical condition or safety concerns R. Wheel 50 feet with two turns 88-Not attempted due to medical condition or safety concerns S. Wheel 150 feet 88-Not attempted due to medical condition or safety concerns - Bladder and Bowel Bladder continence Bowel continence - Endurance Fair - Balance Fair - Safety Awareness Fair CURRENT FUNC. DEFICITS: Self-Care, Mobility, Endurance, Balance, and Safety Awareness MEDICATIONS: - Other See attached MAR (Medication Administration Record) ASSESSMENT: Pt. is a 75 yo Right-handed female.On 06/08/2021 she was admitted to [facility] with diagnosis RIGHT INTERTROCHANTERIC FEMUR FX (06/08/21).Her impairment category is Orthopaedic Disorders 08 - Uni lateral Hip Fracture (08.11).Pre-morbidly, Pt. was independent/mod-I in Locomotion, Safety Awareness, Social Cognition, Balance, and Transfers Control; and she had good Sphincter Control, Communication, Self-Care, and Endurance.Currently, she has deficits of Locomotion, Social Cognition, Balance, Sphin cter Control, Self-Care, Communication, Endurance, Transfers Control, and Safety Awareness.Pt. is now referred to [facility] for acute in-patient rehabilitation in order to maximi ze patient's functional independence in activities of daily living, strength, ROM, and mobility.- Maurice ab Goal Patient has realistic goal of being discharged at assistance level 7-Ind to reside at Home with Fami ly/Relatives. - Physical Therapy Decreased range of motion - to improve, our physical therapists will perform initial evaluation of pt 's status upon admission and devise an individualized program for increasing patient's Range of Motio n. Gait dysfunction - to improve, our physical therapists will perform initial evaluation of pt's status upon admission and devise an individualized program for Gait Training, and Wheel Chair mobility Inability to transfer - to improve, our physical therapists will perform initial evaluation of pt's s tatus upon admission and devise an individualized program for Bed mobility Need for home safety evaluation - to improve, our physical therapists will perform initial evaluation of pt's status upon admission and devise an individualized program for Home Evaluation Need in caregiver upon discharge - to improve, our physical therapists will perform initial evaluatio n of pt's status upon admission and devise an individualized program for Caregiver Training New precaution - to improve, our physical therapists will perform initial evaluation of pt's status u jas admission and devise an individualized program for Patient precaution education Poor balance - to improve, our physical therapists will perform initial evaluation of pt's status upo n admission and devise an individualized program for Balance Training Poor endurance - to improve, our physical therapists will perform initial evaluation of pt's status u jas admission and devise an individualized program for Endurance Training Weakness - to improve, our physical therapists will perform initial evaluation of pt's status upon ad mission and devise an individualized program for Aquatic Therapy, Neuromuscular Reeducation, and Stre ngthening Achieving independence - to improve, our physical therapists will perform initial evaluation of pt's status upon admission and devise an individualized program for Community Reintegration Activities - Occupational Therapy ADL deficits - to improve, our occupation therapists will perform initial evaluation of pt's status u jas admission and devise an individualized program for Bathing, Bed mobility, Community Reintegration , Cooking, Dressing, Eating, Fine Motor Skills, Grooming, Homemaking, Kitchen Mobility, Laundry, Bernadine ent Education, Safety Awareness, Splinting - Positioning, Transfers(Toilet, Tub, Shower), and Wheel C hair Management Cognitive deficits - to improve, our occupation therapists will perform initial evaluation of pt's st atus upon admission and devise an individualized program for Cognition - orientation Need for resident care spec - to improve, our occupation therapists will perform initial evaluation of pt's s tatus upon admission and devise an individualized program for Caregiver Training Weakness - to improve, our occupation therapists will perform initial evaluation of pt's status upon admission and devise an individualized program for Aquatic Therapy, Balance, Endurance, UE ROM, and U E strengthening MEDICAL PLAN: - Anterior Hip Precaution No abduction No active extension No adduction across midline No external rotation No hip flexion >90 degrees No internal rotation - Diet - Liquid Texture Start Regular - Tube Feed Start N/A - Diet Type Start Regular - Posterior Hip Precaution No adduction across midline No external rotation No hip flexion >90 degrees No internal rotation No wheel chair propulsion - Weight Bearing Precaution WBAT right LE - Skin care per protocol - Other See attached MAR (Medication Administration Record) - Diet - Solid Texture Regular - Shower shower DISCHARGE PLAN: - Estimated Length of Stay (days) 14. - Consensus on plan Discharge plan has been discussed with primary caregiver. Patient/Family is in agreement with the loretta n. Primary caregiver is in agreement with the plan. - Patient/Family Goals Return home independently. - Planned Living Setting Upon Discharge Home, to live with Family/Relatives. Transitional Living. SIGNATURE PANEL: (CDT)
--- NOTE | 2021-06-14 17:32 | PAPE ---
POST ADMISSION PHYSICIAN EVALUATION PATIENT: [facility] MR# [id number] REFERRING DOCTOR PRAKASH ANSARI MD EVALUATION DATE AND TIME 06/11/2021 17:30 (CDT) NAME LENIN DIAS DATE OF 1945 AGE 75 PHONE N# [id number] GENDER female EVALUATING PHYSICIAN Dr. Nuno Alaniz M.D. ADMISSION DIAGNOSIS: RIGHT INTERTROCHANTERIC FEMUR FX (06/08/21) ONSET DATE 06/08/2021 POST-ADMISSION FUNCTIONAL/MEDICAL STATUS: - Bladder Same accident frequency: 7-Ind - No accidents in the past 7 days - Bowel Same accident frequency: 7-Ind - No accidents in the past 7 days - Walking Same score based on distance walked: 0(N/A) Same score based on distance walked: 1(<=50ft) - Wheelchair Same score based on distance traveled: 0(N/A) STATUS CHANGE EVALUATION: No change in Functional or Medical Status is identified compared with Pre-Admission screening. PATIENT NEEDS CLOSE MEDICAL SUPERVISION BY A REHABILITATION PHYSICIAN FOR: Coordination of Treatment Team Wound Care PATIENT REQUIRES 24X7 REHAB NURSING FOR MEDICAL AND FUNCTIONAL MGT. OF THE FOLLOWING DEFICITS: Disease Management Medication Management Patient requires 24x7 Rehabilitation Nursing for: Pain Issues, Identifying and preventing risk factor s, Monitoring and reporting current medical conditions, Assisting with ambulation and transfer, Marley ting with all ADL-s, Teaching patients about disease process and medications, Family teaching, Provid ing safe environment, Bowel and Bladder Issues, Skin Integrity, and Medication Management Patient/Family Education Providing Safe Environment Skin Integrity PATIENT REQUIRES INTENSIVE, COORDINATED INTERDISCIPLINARY APPROACH TO REHAB: Arranging Home Equipment/Services Discharge Planning Family Intervention/Training Patient needs Dietary and Nutrition Services for: Adequate Nutrition, Nutritional Supplements, and Nu tritional Education Patient needs Carpet Jack and/or Case Management for: Discharge Planning, Arranging Home Equipmen t or Services, and Family Interventions Carpet Jack/Case Management LIST OF IDENTIFIED AND POTENTIAL PROBLEMS: Alteration in leisure activities Bladder, Incontinence Bowel, Incontinence Infection, Actual or Potential Mobility Impaired Pain, Alteration in Comfort Self Care Deficit Skin Integrity, Actual or Potential Urinary Tract Infection (UTI), Actual or Potential RISK FOR COMPLICATIONS - Falls Patient will be evaluated for Fall Precautions and will be placed on Fall Precautions as indicated pe r protocol. Educated pt on fall prevention strategies to reduce/eliminate fall risk. - SKIN BREAKDOWN Nursing will assess skin daily using assessment tool and will place on Skin Breakdown Precautions as Indicated per protocol. - DVT PTT and INR will be monitored to effectively mitigate risk for development of DVT or PE while here. M edications will be administered as per MD. Mobility training and regular exercise. - Pneumonia pt will be instructed on use of and be encouraged to use incentive spirometry. regular OOB activity a nd exercise to reduce risk. Interval Chest X-Rays will be obtained as necessary. pt will be trained o n deep breathing exercises. - Infection Monitoring of surgical site and pt for signs and symptoms of infection. - Pain Clinical staff will assess patient's pain level every shift per protocol to monitor for pain manageme nt effectiveness. Educate patient on pain management strategies. INTERVENTIONS - ANXIETY Patient will continue with administered medications per MD. - Depression Monitor patient for depression and treat as neccesary. Provide regular exercise, which is a proponent to fight depression. - Surgical Site Management Provide regular dressing changes as indicated by surgeon. Monitor pt for signs and symptoms of infect ion. PATIENT COULD BE AT RISK FOR COMPLICATIONS FROM ADVERSE MEDICAL CONDITIONS DUE TO HIS/HER COMORBIDITI ES AND THE RIGORS OF THE INTENSIVE REHABILLITATION PROGRAM. METHODS OR INTERVENTIONS TO AVOID COMPLIC ATIONS INCLUDE: - Bleeding Assess lab values and manage abnormalities. Nursing to teach precautions for anti-coagulation therapy . Wound to be assessed every shift. - Infection Clinical staff to assess and manage the signs and symptoms of infection including fever, redness, war mth, etc. - Urinary Tract Infection - Falls Patient will be evaluated for Fall Precautions and will be placed on Fall Precautions as indicated pe r protocol. - Skin Breakdown Nursing will assess skin daily using assessment tool and will place on Skin Breakdown Precautions as indicated per protocol. - Pain Clinical staff may employ non-medication methods such as massage, distraction, decrease stimulus, etc . as needed. Clinical staff will assess patient's pain level every shift per protocol to assess and e nsure pain management effectiveness. Medications will be given and the pain level re-assessed. PRELIMINARY PLAN OF CARE: - Physical Therapy Patient needs Physical Therapy for a daily minimum of 1.5 hours at least 5 out of 7 days, to improve: Mobility, Strengthening, Transfers, Stretching, ROM, Endurance, Ability to manage stairs, Gait, and Balance. - Speech Therapy Patient needs Speech Therapy for a daily minimum of 0.5 hours at least 5 out of 7 days, to improve: S wallowing, Cognition, Language Skills, and Compensatory Strategies. - Rehabilitation Nursing Patient requires 24x7 Rehabilitation Nursing for: Pain Issues, Identifying and preventing risk factor s, Monitoring and reporting current medical conditions, Assisting with ambulation and transfer, Marley ting with all ADL-s, Teaching patients about disease process and medications, Family teaching, Provid ing safe environment, Bowel and Bladder Issues, Skin Integrity, and Medication Management. Patient needs Carpet Jack and/or Case Management for: Discharge Planning, Arranging Home Equipmen t or Services, and Family Interventions. - Dietary and Nutrition Services Patient needs Dietary and Nutrition Services for: Adequate Nutrition, Nutritional Supplements, and Nu tritional Education. - Occupational Therapy Patient needs Occupational Therapy for a daily minimum of 1.5 hours at least 5 out of 7 days, to impr ove Activities of Daily Living, including: Eating, Grooming, Bathing, Dressing, Toileting, Toilet Tra nsfers, Community Reintegration, Higher functional activities, Adaptive Equipment, Splinting, Househo ld Tasks, and Other activities as determined. QI SCORES: - Self-Care A. Eating 03-Partial/moderate assistance B. Oral hygiene 03-Partial/moderate assistance C. Toileting hygiene 03-Partial/moderate assistance E. Shower/bathe self 03-Partial/moderate assistance F. Upper body dressing 03-Partial/moderate assistance G. Lower body dressing 02-Substantial/maximal assistance H. Putting on/taking off footwear 88-Not attempted due to medical condition or safety concerns - Mobility A. Roll left and right 03-Partial/moderate assistance B. Sit to lying 03-Partial/moderate assistance C. Lying to sitting on side of bed 03-Partial/moderate assistance D. Sit to stand 03-Partial/moderate assistance E. Chair/tca-il-jatgc transfer 03-Partial/moderate assistance F. Toilet transfer 03-Partial/moderate assistance G. Car transfer 88-Not attempted due to medical condition or safety concerns I. Walk 10 feet 88-Not attempted due to medical condition or safety concerns J. Walk 50 feet with two turns 88-Not attempted due to medical condition or safety concerns K. Walk 150 feet 88-Not attempted due to medical condition or safety concerns L. Walking 10 feet on uneven surfaces 88-Not attempted due to medical condition or safety concerns M. 1 step (curb) 88-Not attempted due to medical condition or safety concerns N. 4 steps 88-Not attempted due to medical condition or safety concerns O. 12 steps 88-Not attempted due to medical condition or safety concerns P. Picking up object 88-Not attempted due to medical condition or safety concerns R. Wheel 50 feet with two turns 88-Not attempted due to medical condition or safety concerns S. Wheel 150 feet 88-Not attempted due to medical condition or safety concerns - Bladder and Bowel Bladder continence Bowel continence - Endurance Fair - Balance Fair - Safety Awareness Fair POTENTIAL FUNCTIONAL GOALS FOR PATIENT TO ACHIEVE BY DISCHARGE: - Safety Precaution Patient will remain free from falls or injury at time of discharge. - Bed Mobility Patient will perform bed mobility at 4-Na level of assistance. - Transfers Patient will complete transfers from bed to chair at 4-Na level of assistance. - Mobility Patient will ambulate 150 ft with 4-Na level of assistance with RW. PATIENT REHAB POTENTIAL Mady DIAS is able and expected to receive 3 hours of individualized therapy daily on at least 5 of claudia 7 days Mady DIAS's prognosis for significant practical improvement within a reasonable period of time appear s Good Expected level of measurable improvement will be of a practical value to Mady DIAS's functional capac ity or adaptations to impairments Has a viable Discharge Plan Medically appropriate; condition is sufficiently stable to participate in intensive rehab program DISCHARGE PLAN: - Estimated Length of Stay (days) 14. - Consensus on plan Discharge plan has been discussed with primary caregiver. Patient/Family is in agreement with the loretta n. Primary caregiver is in agreement with the plan. - Patient/Family Goals Return home independently. - Planned Living Setting Upon Discharge Home, to live with Family/Relatives. Transitional Living. CONCLUSION ON REHABILITATION NECESSITY: I have evaluated patient's pre-admission functional status and, comparing it to the patient's post-ad mission functional status now, I conclude that the pre-admission assessment was accurate. Patient's c ondition on admission supports the medical necessity of admission to [facility]. It is safe to proceed with patient's therapy program. SIGNATURE PANEL: (CDT)
--- NOTE | 2021-06-14 17:37 | R.PN ---
PROGRESS NOTES ENCOUNTER DATE AND TIME: 06/14/2021 17:31 (CDT) NAME LENIN DIAS DATE OF : 1945 DATE OF ADMISSION: 06/10/2021 15:54 (CDT) RIGHT INTERTROCHANTERIC FEMUR FX (06/08/21)CHIEF COMPLAINT: Right hip fracture SUBJECTIVE: Pt denied any depression. Pt denied any Shortness of Breath. WBC 6.8, Hgb 9.7, prealbumin 14.6, Ca 8.3, UA is negative, covid-19 test is negative. Ambulated from restroom to bed with walker, no loss of balance and contact guard assistance. WBAT. VITAL SIGNS Temperature: 98.0 F SBP/DBP: 123/55 Pulse: 71 Resp: 15 MEDICATION ALLERGIES: No Known Drug Allergies (NKDA) ENVIRONMENTAL ALLERGIES: - Substance Allergies None Known - Other Allergies None Known NURSING: - Shower allowing shower - Skin care per protocol PRECAUTIONS: - Weight Bearing Precaution WBAT right LE ACTIVITIES OOB only with supervision THERAPIES: - Dietary and Nutrition Adequate Nutrition. Nutritional Education. Nutritional Supplements. Evaluate and Treat. - Occupational Therapy Cognitive Retraining. Patient needs Occupational Therapy for a daily minimum of 1.5 hours at least 5 out of 7 days, to improve Activities of Daily Living, including: Eating, Grooming, Bathing, Dressing, Toileting, Toilet Transfers, Community Reintegration, Higher functional activities, Adaptive Equipme nt, Splinting, Household Tasks, and Other activities as determined. Visual Perceptual Training. Evalu ate and Treat. Patient/Family Education. Safety Awareness. Transfer Training. ADL Training. Household Tasks. Adaptive Equipment. UE Strengthening. - Speech Therapy Cognitive Training. Expressive Language Skills. Memory Strategies. Patient needs Speech Therapy for a daily minimum of 1.5 hours at least 5 out of 7 days, to improve: Swallowing, Cognition, Language Ski lls, and Compensatory Strategies. Receptive Language Skills. Speech Intelligibility Training. Evaluat e and Treat. - Physical Therapy Patient needs Physical Therapy for a daily minimum of 1.5 hours at least 5 out of 7 days, to improve: Mobility, Strengthening, Transfers, Stretching, ROM, Endurance, Ability to manage stairs, Gait, and Balance. Mobility Training. Gait Training. Safety Awareness. Balance Training. Transfer Training. Charline luate and Treat. Patient/Family Education. LE Strengthening. PHYSICAL EXAM - Gen Alert and awake Lying in bed No apparent distress Oriented to: person, time, and place - Skin No breakdown No abnormalities - Eyes No abnormalities - ENMT No abnormalities - Neck No abnormalities - CVS RRR - Chest No abnormalities - Abd Soft - GI Non distended Deferred - No abnormalities - Ext Right hip surgical site has good hemostasis. - MSK 4+/5 weakness in right lower extremity - Neuro 4/5 strength right lower extremity. ASSESSMENT: Pt. is a 75 yo Right-handed female.On 06/08/2021 she was admitted to [facility] with diagnosis RIGHT INTERTROCHANTERIC FEMUR FX (06/08/21).Her impairment category is Orthopaedic Disorders 08 - Uni lateral Hip Fracture (08.).Pre-morbidly, Pt. was independent/mod-I in Locomotion, Safety Awareness, Social Cognition, Balance, and Transfers Control; and she had good Sphincter Control, Communication, Self-Care, and Endurance.Currently, she has deficits of Locomotion, Social Cognition, Balance, Sphin cter Control, Self-Care, Communication, Endurance, Transfers Control, and Safety Awareness.Pt. is now referred to [facility] for acute in-patient rehabilitation in order to maximi ze patient's functional independence in activities of daily living, strength, ROM, and mobility.- Maurice ab Goal Patient has realistic goal of being discharged at assistance level 7-Ind to reside at Home with Fami ly/Relatives. MDM/PLAN: - Physical Therapy Decreased range of motion - to improve, our physical therapists will perform initial evaluation of p t's status upon admission and devise an individualized program for increasing patient's Range of Natan on. Gait dysfunction - to improve, our physical therapists will perform initial evaluation of pt's statu s upon admission and devise an individualized program for Gait Training, and Wheel Chair mobility Inability to transfer - to improve, our physical therapists will perform initial evaluation of pt's status upon admission and devise an individualized program for Bed mobility Need for home safety evaluation - to improve, our physical therapists will perform initial evaluatio n of pt's status upon admission and devise an individualized program for Home Evaluation Need in caregiver upon discharge - to improve, our physical therapists will perform initial evaluati on of pt's status upon admission and devise an individualized program for Caregiver Training New precaution - to improve, our physical therapists will perform initial evaluation of pt's status upon admission and devise an individualized program for Patient precaution education Poor balance - to improve, our physical therapists will perform initial evaluation of pt's status up on admission and devise an individualized program for Balance Training Poor endurance - to improve, our physical therapists will perform initial evaluation of pt's status upon admission and devise an individualized program for Endurance Training Weakness - to improve, our physical therapists will perform initial evaluation of pt's status upon a dmission and devise an individualized program for Aquatic Therapy, Neuromuscular Reeducation, and Str engthening Achieving independence - to improve, our physical therapists will perform initial evaluation of pt's status upon admission and devise an individualized program for Community Reintegration Activities - Occupational Therapy ADL deficits - to improve, our occupation therapists will perform initial evaluation of pt's status upon admission and devise an individualized program for Bathing, Bed mobility, Community Reintegratio n, Cooking, Dressing, Eating, Fine Motor Skills, Grooming, Homemaking, Kitchen Mobility, Laundry, Pat ient Education, Safety Awareness, Splinting - Positioning, Transfers(Toilet, Tub, Shower), and Wheel Chair Management Cognitive deficits - to improve, our occupation therapists will perform initial evaluation of pt's s tatus upon admission and devise an individualized program for Cognition - orientation Need for health care specialist - to improve, our occupation therapists will perform initial evaluation of pt's status upon admission and devise an individualized program for Caregiver Training Weakness - to improve, our occupation therapists will perform initial evaluation of pt's status upon admission and devise an individualized program for Aquatic Therapy, Balance, Endurance, UE ROM, and UE strengthening - Other See attached MAR (Medication Administration Record) - Anterior Hip Precaution No abduction No active extension No adduction across midline No external rotation No hip flexion >90 degrees No internal rotation - Diet - Liquid Texture Continue Regular - Tube Feed Continue N/A - Diet Type Continue Regular - Posterior Hip Precaution No adduction across midline No external rotation No hip flexion >90 degrees No internal rotation No wheel chair propulsion - Weight Bearing Precaution WBAT right LE - Skin care per protocol - Diet - Solid Texture Continue Regular - Shower allowing shower FUNCTIONAL STATUS: UPDATED AT WEEKLY TEAM CONFERENCE - Bladder Same accident frequency: 7-Ind - No accidents in the past 7 days - Bowel Same accident frequency: 7-Ind - No accidents in the past 7 days - Walking Same score based on distance walked: 0(N/A) Same score based on distance walked: 1(<=50ft) - Wheelchair Same score based on distance traveled: 0(N/A) FUNCTIONAL STATUS: - Self-Care A. Eating Ind B. Grooming Rubina C. Bathing Na D. Dressing - Upper Na E. Dressing - Lower modA F. Toileting Na - Sphincter Control G. Bladder control Rubina H. Bowel control Rubina - Transfers Control I. Bed/Chair/Wheelchair Na J. Toilet Na K. Tub/Shower modA - Locomotion L. Walk/Wheelchair (B) modA M. Stairs ADNO - Communication N. Comprehension (B) Rubina O. Expression (B) Rubina - Social Cognition P. Social Interaction Ind Q. Problem Solving Rubina R. Memory Rubina - Endurance Fair - Balance Fair - Safety Awareness Good QI SCORES: - Self-Care A. Eating 03-Partial/moderate assistance B. Oral hygiene 03-Partial/moderate assistance C. Toileting hygiene 03-Partial/moderate assistance E. Shower/bathe self 03-Partial/moderate assistance F. Upper body dressing 03-Partial/moderate assistance G. Lower body dressing 02-Substantial/maximal assistance H. Putting on/taking off footwear 88-Not attempted due to medical condition or safety concerns - Mobility A. Roll left and right 03-Partial/moderate assistance B. Sit to lying 03-Partial/moderate assistance C. Lying to sitting on side of bed 03-Partial/moderate assistance D. Sit to stand 03-Partial/moderate assistance E. Chair/xma-sy-[id number] transfer 03-Partial/moderate assistance F. Toilet transfer 03-Partial/moderate assistance G. Car transfer 88-Not attempted due to medical condition or safety concerns I. Walk 10 feet 88-Not attempted due to medical condition or safety concerns J. Walk 50 feet with two turns 88-Not attempted due to medical condition or safety concerns K. Walk 150 feet 88-Not attempted due to medical condition or safety concerns L. Walking 10 feet on uneven surfaces 88-Not attempted due to medical condition or safety concerns M. 1 step (curb) 88-Not attempted due to medical condition or safety concerns N. 4 steps 88-Not attempted due to medical condition or safety concerns O. 12 steps 88-Not attempted due to medical condition or safety concerns P. Picking up object 88-Not attempted due to medical condition or safety concerns R. Wheel 50 feet with two turns 88-Not attempted due to medical condition or safety concerns S. Wheel 150 feet 88-Not attempted due to medical condition or safety concerns - Bladder and Bowel Bladder continence Bowel continence - Endurance Fair - Balance Fair - Safety Awareness Fair CURRENT [facility]. DEFICITS: Self-Care, Mobility, Endurance, Balance, and Safety Awareness SIGNATURE PANEL: (CDT)
[2021-06-14] MEDS: QUETIAPINE 100MG TAB PO SCH (19:44)
[2021-06-14] MEDS: ZONISAMIDE 25 MG PO SCH (19:48)
[2021-06-14] MEDS: TRAZODONE 100 MG TABLET PO SCH (19:49)
[2021-06-14] MEDS ORDERED: TRAZODONE 100 MG TABLET PO SCH (21:00)
[2021-06-14] MEDS ORDERED: TRAZODONE 50 MG TABLET PO SCH (21:00)
[2021-06-15] MEDS: ACETAMINOPHEN 500 MG TAB PO SCH ×3 (03:42→20:22)
[2021-06-15] MEDS: LEVOTHYROXINE SOD 0.05 MG TABLET PO SCH (05:08)
[2021-06-15] MEDS: APIXABAN 2.5 MG TABLET PO SCH ×2 (07:26→20:22)
[2021-06-15] MEDS: VENLAFAXINE HCL XR 75 MG CAP PO SCH (07:26)
[2021-06-15] MEDS: VITAMIN D 1000 UNIT TAB PO SCH (07:26)
[2021-06-15] MEDS: OXYCODONE HCL 5 MG TAB PO PRN (07:26)
[2021-06-15] MEDS: GABAPENTIN 100 MG CAP PO SCH ×2 (07:26→20:22)
[2021-06-15] MEDS: CALCIUM CARBONATE 500 MG TAB PO SCH ×2 (07:26→20:22)
[2021-06-15] MEDS: CELECOXIB 100 MG CAPSULE PO SCH ×2 (07:26→20:22)
[2021-06-15] MEDS: ACYCLOVIR 400 MG TABLET PO SCH ×2 (07:26→20:22)
[2021-06-15] MEDS: BUPROPION 200 MG PO SCH ×2 (07:31→20:23)
[2021-06-15] MEDS: LIDOCAINE 4% PATCH TOP SCH (09:01)
--- NOTE | 2021-06-15 17:31 | R.PN ---
PROGRESS NOTES ENCOUNTER DATE AND TIME: 06/15/2021 17:28 (CDT) NAME LENIN DIAS DATE OF : 1945 DATE OF ADMISSION: 06/10/2021 15:54 (CDT) RIGHT INTERTROCHANTERIC FEMUR FX (06/08/21)CHIEF COMPLAINT: Right hip fracture SUBJECTIVE: Pt denied any depression. Pt denied any Shortness of Breath. WBC 6.8, Hgb 9.7, prealbumin 14.6, Ca 8.3, UA is negative, covid-19 test is negative. Ambulated 500' with walker, no loss of balance and modified independence, WBAT. VITAL SIGNS Temperature: 98.1 F SBP/DBP: 117/57 Pulse: 72 Resp: 15 MEDICATION ALLERGIES: No Known Drug Allergies (NKDA) ENVIRONMENTAL ALLERGIES: - Substance Allergies None Known - Other Allergies None Known NURSING: - Shower allowing shower - Skin care per protocol PRECAUTIONS: - Weight Bearing Precaution WBAT right LE ACTIVITIES OOB only with supervision THERAPIES: - Dietary and Nutrition Adequate Nutrition. Nutritional Education. Nutritional Supplements. Evaluate and Treat. - Occupational Therapy Cognitive Retraining. Patient needs Occupational Therapy for a daily minimum of 1.5 hours at least 5 out of 7 days, to improve Activities of Daily Living, including: Eating, Grooming, Bathing, Dressing, Toileting, Toilet Transfers, Community Reintegration, Higher functional activities, Adaptive Equipme nt, Splinting, Household Tasks, and Other activities as determined. Visual Perceptual Training. Evalu ate and Treat. Patient/Family Education. Safety Awareness. Transfer Training. ADL Training. Household Tasks. Adaptive Equipment. UE Strengthening. - Speech Therapy Cognitive Training. Expressive Language Skills. Memory Strategies. Patient needs Speech Therapy for a daily minimum of 1.5 hours at least 5 out of 7 days, to improve: Swallowing, Cognition, Language Ski lls, and Compensatory Strategies. Receptive Language Skills. Speech Intelligibility Training. Evaluat e and Treat. - Physical Therapy Patient needs Physical Therapy for a daily minimum of 1.5 hours at least 5 out of 7 days, to improve: Mobility, Strengthening, Transfers, Stretching, ROM, Endurance, Ability to manage stairs, Gait, and Balance. Mobility Training. Gait Training. Safety Awareness. Balance Training. Transfer Training. Charline luate and Treat. Patient/Family Education. LE Strengthening. PHYSICAL EXAM - Gen Alert and awake Lying in bed No apparent distress Oriented to: person, time, and place - Skin No breakdown No abnormalities - Eyes No abnormalities - ENMT No abnormalities - Neck No abnormalities - CVS RRR - Chest No abnormalities - Abd Soft - GI Non distended Deferred - No abnormalities - Ext Right hip surgical site has good hemostasis. - MSK 4+/5 weakness in right lower extremity - Neuro 4/5 strength right lower extremity. ASSESSMENT: Pt. is a 75 yo Right-handed female.On 06/08/2021 she was admitted to [facility] with diagnosis RIGHT INTERTROCHANTERIC FEMUR FX (06/08/21).Her impairment category is Orthopaedic Disorders 08 - Uni lateral Hip Fracture (.).Pre-morbidly, Pt. was independent/mod-I in Locomotion, Safety Awareness, Social Cognition, Balance, and Transfers Control; and she had good Sphincter Control, Communication, Self-Care, and Endurance.Currently, she has deficits of Locomotion, Social Cognition, Balance, Sphin cter Control, Self-Care, Communication, Endurance, Transfers Control, and Safety Awareness.Pt. is now referred to [facility] for acute in-patient rehabilitation in order to maximi ze patient's functional independence in activities of daily living, strength, ROM, and mobility.- Maurice ab Goal Patient has realistic goal of being discharged at assistance level 7-Ind to reside at Home with Fami ly/Relatives. MDM/PLAN: - Physical Therapy Decreased range of motion - to improve, our physical therapists will perform initial evaluation of p t's status upon admission and devise an individualized program for increasing patient's Range of Natan on. Gait dysfunction - to improve, our physical therapists will perform initial evaluation of pt's statu s upon admission and devise an individualized program for Gait Training, and Wheel Chair mobility Inability to transfer - to improve, our physical therapists will perform initial evaluation of pt's status upon admission and devise an individualized program for Bed mobility Need for home safety evaluation - to improve, our physical therapists will perform initial evaluatio n of pt's status upon admission and devise an individualized program for Home Evaluation Need in caregiver upon discharge - to improve, our physical therapists will perform initial evaluati on of pt's status upon admission and devise an individualized program for Caregiver Training New precaution - to improve, our physical therapists will perform initial evaluation of pt's status upon admission and devise an individualized program for Patient precaution education Poor balance - to improve, our physical therapists will perform initial evaluation of pt's status up on admission and devise an individualized program for Balance Training Poor endurance - to improve, our physical therapists will perform initial evaluation of pt's status upon admission and devise an individualized program for Endurance Training Weakness - to improve, our physical therapists will perform initial evaluation of pt's status upon a dmission and devise an individualized program for Aquatic Therapy, Neuromuscular Reeducation, and Str engthening Achieving independence - to improve, our physical therapists will perform initial evaluation of pt's status upon admission and devise an individualized program for Community Reintegration Activities - Occupational Therapy ADL deficits - to improve, our occupation therapists will perform initial evaluation of pt's status upon admission and devise an individualized program for Bathing, Bed mobility, Community Reintegratio n, Cooking, Dressing, Eating, Fine Motor Skills, Grooming, Homemaking, Kitchen Mobility, Laundry, Pat ient Education, Safety Awareness, Splinting - Positioning, Transfers(Toilet, Tub, Shower), and Wheel Chair Management Cognitive deficits - to improve, our occupation therapists will perform initial evaluation of pt's s tatus upon admission and devise an individualized program for Cognition - orientation Need for career and guidance counselor - to improve, our occupation therapists will perform initial evaluation of pt's status upon admission and devise an individualized program for Caregiver Training Weakness - to improve, our occupation therapists will perform initial evaluation of pt's status upon admission and devise an individualized program for Aquatic Therapy, Balance, Endurance, UE ROM, and UE strengthening - Other See attached MAR (Medication Administration Record) - Anterior Hip Precaution No abduction No active extension No adduction across midline No external rotation No hip flexion >90 degrees No internal rotation - Diet - Liquid Texture Continue Regular - Tube Feed Continue N/A - Diet Type Continue Regular - Posterior Hip Precaution No adduction across midline No external rotation No hip flexion >90 degrees No internal rotation No wheel chair propulsion - Weight Bearing Precaution WBAT right LE - Skin care per protocol - Diet - Solid Texture Continue Regular - Shower allowing shower FUNCTIONAL STATUS: UPDATED AT WEEKLY TEAM CONFERENCE - Bladder Same accident frequency: 7-Ind - No accidents in the past 7 days - Bowel Same accident frequency: 7-Ind - No accidents in the past 7 days - Walking Same score based on distance walked: 0(N/A) Same score based on distance walked: 1(<=50ft) - Wheelchair Same score based on distance traveled: 0(N/A) FUNCTIONAL STATUS: - Self-Care A. Eating Ind B. Grooming Rubina C. Bathing Na D. Dressing - Upper Na E. Dressing - Lower modA F. Toileting Na - Sphincter Control G. Bladder control Rubina H. Bowel control Rubina - Transfers Control I. Bed/Chair/Wheelchair Na J. Toilet Na K. Tub/Shower modA - Locomotion L. Walk/Wheelchair (B) modA M. Stairs ADNO - Communication N. Comprehension (B) Rubina O. Expression (B) Rubina - Social Cognition P. Social Interaction Ind Q. Problem Solving Rubina R. Memory Rubina - Endurance Fair - Balance Fair - Safety Awareness Good QI SCORES: - Self-Care A. Eating 03-Partial/moderate assistance B. Oral hygiene 03-Partial/moderate assistance C. Toileting hygiene 03-Partial/moderate assistance E. Shower/bathe self 03-Partial/moderate assistance F. Upper body dressing 03-Partial/moderate assistance G. Lower body dressing 02-Substantial/maximal assistance H. Putting on/taking off footwear 88-Not attempted due to medical condition or safety concerns - Mobility A. Roll left and right 03-Partial/moderate assistance B. Sit to lying 03-Partial/moderate assistance C. Lying to sitting on side of bed 03-Partial/moderate assistance D. Sit to stand 03-Partial/moderate assistance E. Chair/[id number] transfer 03-Partial/moderate assistance F. Toilet transfer 03-Partial/moderate assistance G. Car transfer 88-Not attempted due to medical condition or safety concerns I. Walk 10 feet 88-Not attempted due to medical condition or safety concerns J. Walk 50 feet with two turns 88-Not attempted due to medical condition or safety concerns K. Walk 150 feet 88-Not attempted due to medical condition or safety concerns L. Walking 10 feet on uneven surfaces 88-Not attempted due to medical condition or safety concerns M. 1 step (curb) 88-Not attempted due to medical condition or safety concerns N. 4 steps 88-Not attempted due to medical condition or safety concerns O. 12 steps 88-Not attempted due to medical condition or safety concerns P. Picking up object 88-Not attempted due to medical condition or safety concerns R. Wheel 50 feet with two turns 88-Not attempted due to medical condition or safety concerns S. Wheel 150 feet 88-Not attempted due to medical condition or safety concerns - Bladder and Bowel Bladder continence Bowel continence - Endurance Fair - Balance Fair - Safety Awareness Fair CURRENT [facility]. DEFICITS: Self-Care, Mobility, Endurance, Balance, and Safety Awareness SIGNATURE PANEL: (CDT)
[2021-06-15] MEDS: QUETIAPINE 100MG TAB PO SCH (20:22)
[2021-06-15] MEDS: TRAZODONE 100 MG TABLET PO SCH (20:23)
[2021-06-15] MEDS: ZONISAMIDE 25 MG PO SCH (20:23)
--- NOTE | 2021-06-16 00:25 | PN ---
Date of Progress Note: 06/15/2021 Subjective: The patient was seen this morning for followup. No new complaints or problems reported by patient. Lying in bed, not in distress. Objective: Vital Signs: Reviewed. HEENT: Examination unremarkable. Lungs: Clear to auscultation. Heart: Sounds normal. Abdomen: Soft. Bowel sounds normal. No guarding, rigidity, tenderness, or distention. Extremities: No leg edema. Right lateral hip exam shows unremarkable surgical site presence of sutu res. No evidence of any redness, discharge, bleeding, or swelling. Impression: 1.Right hip fracture. 2.Anemia due to acute blood loss. Plan: We will continue current medications. Continue DVT prophylaxis, which is Eliquis at 2.5 mg 2 times a day. Continue current pain medication. Physical therapy to be provided under guidance of Dr Rei Alaniz. I will see her tomorrow for follow. OMID/MODL Voice ID: [id number] Report ID: [id number]
[2021-06-16] MEDS: ACETAMINOPHEN 500 MG TAB PO SCH ×3 (04:06→19:38)
[2021-06-16 04:48] LABS: Absolute Lymphocytes (CBC) 2.9 K/uL (0.7-4.9); Lymphocytes % 36.6 % (15.3-44.8); MPV 7.2 fL (7.6-11.3); RBC Red Blood Cell Count 3.19 M/uL (3.86-4.86)
[2021-06-16 05:13] LABS: Albumin 3.1 g/dL (3.4-5.0); Magnesium 2.2 mg/dL (1.8-2.4); Potassium 4.4 mmol/L (3.5-5.1)
[2021-06-16] MEDS: LIDOCAINE 4% PATCH TOP SCH (07:29)
[2021-06-16] MEDS: OXYCODONE HCL 5 MG TAB PO PRN (07:30)
[2021-06-16] MEDS: APIXABAN 2.5 MG TABLET PO SCH ×2 (07:31→19:40)
[2021-06-16] MEDS: CALCIUM CARBONATE 500 MG TAB PO SCH ×2 (07:31→19:41)
[2021-06-16] MEDS: VENLAFAXINE HCL XR 75 MG CAP PO SCH (07:31)
[2021-06-16] MEDS: VITAMIN D 1000 UNIT TAB PO SCH (07:32)
[2021-06-16] MEDS: ACYCLOVIR 400 MG TABLET PO SCH ×2 (07:32→19:39)
[2021-06-16] MEDS: GABAPENTIN 100 MG CAP PO SCH ×2 (07:32→19:41)
[2021-06-16] MEDS: LEVOTHYROXINE SOD 0.05 MG TABLET PO SCH (07:32)
[2021-06-16] MEDS: CELECOXIB 100 MG CAPSULE PO SCH ×2 (07:32→19:39)
[2021-06-16] MEDS: BUPROPION 200 MG PO SCH ×2 (07:34→19:38)
--- NOTE | 2021-06-16 18:18 | R.PN ---
PROGRESS NOTES ENCOUNTER DATE AND TIME: 06/16/2021 18:13 (CDT) NAME LENIN DIAS DATE OF : 1945 DATE OF ADMISSION: 06/10/2021 15:54 (CDT) RIGHT INTERTROCHANTERIC FEMUR FX (06/08/21)CHIEF COMPLAINT: Right hip fracture SUBJECTIVE: Pt denied any depression. Pt denied any Shortness of Breath. WBC 7.9, Hgb 9.8, prealbumin 19.0, Ca 9.1, UA is negative, covid-19 test is negative. TSH 2.06. Ambulated 500' with walker, no loss of balance and modified independence, WBAT. VITAL SIGNS Temperature: 98.2 F SBP/DBP: 110/63 Pulse: 64 Resp: 15 MEDICATION ALLERGIES: No Known Drug Allergies (NKDA) ENVIRONMENTAL ALLERGIES: - Substance Allergies None Known - Other Allergies None Known NURSING: - Shower allowing shower - Skin care per protocol PRECAUTIONS: - Weight Bearing Precaution WBAT right LE ACTIVITIES OOB only with supervision THERAPIES: - Dietary and Nutrition Adequate Nutrition. Nutritional Education. Nutritional Supplements. Evaluate and Treat. - Occupational Therapy Cognitive Retraining. Patient needs Occupational Therapy for a daily minimum of 1.5 hours at least 5 out of 7 days, to improve Activities of Daily Living, including: Eating, Grooming, Bathing, Dressing, Toileting, Toilet Transfers, Community Reintegration, Higher functional activities, Adaptive Equipme nt, Splinting, Household Tasks, and Other activities as determined. Visual Perceptual Training. Evalu ate and Treat. Patient/Family Education. Safety Awareness. Transfer Training. ADL Training. Household Tasks. Adaptive Equipment. UE Strengthening. - Speech Therapy Cognitive Training. Expressive Language Skills. Memory Strategies. Patient needs Speech Therapy for a daily minimum of 1.5 hours at least 5 out of 7 days, to improve: Swallowing, Cognition, Language Ski lls, and Compensatory Strategies. Receptive Language Skills. Speech Intelligibility Training. Evaluat e and Treat. - Physical Therapy Patient needs Physical Therapy for a daily minimum of 1.5 hours at least 5 out of 7 days, to improve: Mobility, Strengthening, Transfers, Stretching, ROM, Endurance, Ability to manage stairs, Gait, and Balance. Mobility Training. Gait Training. Safety Awareness. Balance Training. Transfer Training. Charline luate and Treat. Patient/Family Education. LE Strengthening. PHYSICAL EXAM - Gen Alert and awake Lying in bed No apparent distress Oriented to: person, time, and place - Skin No breakdown No abnormalities - Eyes No abnormalities - ENMT No abnormalities - Neck No abnormalities - CVS RRR - Chest No abnormalities - Abd Soft - GI Non distended Deferred - No abnormalities - Ext Right hip surgical site has good hemostasis. - MSK 4+/5 weakness in right lower extremity - Neuro 4/5 strength right lower extremity. ASSESSMENT: Pt. is a 75 yo Right-handed female.On 06/08/2021 she was admitted to [facility] with diagnosis RIGHT INTERTROCHANTERIC FEMUR FX (06/08/21).Her impairment category is Orthopaedic Disorders 08 - Uni lateral Hip Fracture (08.).Pre-morbidly, Pt. was independent/mod-I in Locomotion, Safety Awareness, Social Cognition, Balance, and Transfers Control; and she had good Sphincter Control, Communication, Self-Care, and Endurance.Currently, she has deficits of Locomotion, Social Cognition, Balance, Sphin cter Control, Self-Care, Communication, Endurance, Transfers Control, and Safety Awareness.Pt. is now referred to [facility] for acute in-patient rehabilitation in order to maximi ze patient's functional independence in activities of daily living, strength, ROM, and mobility.- Maurice ab Goal Patient has realistic goal of being discharged at assistance level 7-Ind to reside at Home with Fami ly/Relatives. MDM/PLAN: - Physical Therapy Decreased range of motion - to improve, our physical therapists will perform initial evaluation of p t's status upon admission and devise an individualized program for increasing patient's Range of Natan on. Gait dysfunction - to improve, our physical therapists will perform initial evaluation of pt's statu s upon admission and devise an individualized program for Gait Training, and Wheel Chair mobility Inability to transfer - to improve, our physical therapists will perform initial evaluation of pt's status upon admission and devise an individualized program for Bed mobility Need for home safety evaluation - to improve, our physical therapists will perform initial evaluatio n of pt's status upon admission and devise an individualized program for Home Evaluation Need in caregiver upon discharge - to improve, our physical therapists will perform initial evaluati on of pt's status upon admission and devise an individualized program for Caregiver Training New precaution - to improve, our physical therapists will perform initial evaluation of pt's status upon admission and devise an individualized program for Patient precaution education Poor balance - to improve, our physical therapists will perform initial evaluation of pt's status up on admission and devise an individualized program for Balance Training Poor endurance - to improve, our physical therapists will perform initial evaluation of pt's status upon admission and devise an individualized program for Endurance Training Weakness - to improve, our physical therapists will perform initial evaluation of pt's status upon a dmission and devise an individualized program for Aquatic Therapy, Neuromuscular Reeducation, and Str engthening Achieving independence - to improve, our physical therapists will perform initial evaluation of pt's status upon admission and devise an individualized program for Community Reintegration Activities - Occupational Therapy ADL deficits - to improve, our occupation therapists will perform initial evaluation of pt's status upon admission and devise an individualized program for Bathing, Bed mobility, Community Reintegratio n, Cooking, Dressing, Eating, Fine Motor Skills, Grooming, Homemaking, Kitchen Mobility, Laundry, Pat ient Education, Safety Awareness, Splinting - Positioning, Transfers(Toilet, Tub, Shower), and Wheel Chair Management Cognitive deficits - to improve, our occupation therapists will perform initial evaluation of pt's s tatus upon admission and devise an individualized program for Cognition - orientation Need for lawn care professional - to improve, our occupation therapists will perform initial evaluation of pt's status upon admission and devise an individualized program for Caregiver Training Weakness - to improve, our occupation therapists will perform initial evaluation of pt's status upon admission and devise an individualized program for Aquatic Therapy, Balance, Endurance, UE ROM, and UE strengthening - Other See attached MAR (Medication Administration Record) - Anterior Hip Precaution No abduction No active extension No adduction across midline No external rotation No hip flexion >90 degrees No internal rotation - Diet - Liquid Texture Continue Regular - Tube Feed Continue N/A - Diet Type Continue Regular - Posterior Hip Precaution No adduction across midline No external rotation No hip flexion >90 degrees No internal rotation No wheel chair propulsion - Weight Bearing Precaution WBAT right LE - Skin care per protocol - Diet - Solid Texture Continue Regular - Shower allowing shower FUNCTIONAL STATUS: UPDATED AT WEEKLY TEAM CONFERENCE - Bladder Same accident frequency: 7-Ind - No accidents in the past 7 days - Bowel Same accident frequency: 7-Ind - No accidents in the past 7 days - Walking Same score based on distance walked: 0(N/A) Same score based on distance walked: 1(<=50ft) - Wheelchair Same score based on distance traveled: 0(N/A) FUNCTIONAL STATUS: - Self-Care A. Eating Ind B. Grooming Rubina C. Bathing Na D. Dressing - Upper Na E. Dressing - Lower modA F. Toileting Na - Sphincter Control G. Bladder control Rubina H. Bowel control Rubina - Transfers Control I. Bed/Chair/Wheelchair Na J. Toilet Na K. Tub/Shower modA - Locomotion L. Walk/Wheelchair (B) modA M. Stairs ADNO - Communication N. Comprehension (B) Rubina O. Expression (B) Rubina - Social Cognition P. Social Interaction Ind Q. Problem Solving Rubina R. Memory Rubina - Endurance Fair - Balance Fair - Safety Awareness Good QI SCORES: - Self-Care A. Eating 03-Partial/moderate assistance B. Oral hygiene 03-Partial/moderate assistance C. Toileting hygiene 03-Partial/moderate assistance E. Shower/bathe self 03-Partial/moderate assistance F. Upper body dressing 03-Partial/moderate assistance G. Lower body dressing 02-Substantial/maximal assistance H. Putting on/taking off footwear 88-Not attempted due to medical condition or safety concerns - Mobility A. Roll left and right 03-Partial/moderate assistance B. Sit to lying 03-Partial/moderate assistance C. Lying to sitting on side of bed 03-Partial/moderate assistance D. Sit to stand 03-Partial/moderate assistance E. Chair/iqa-va-[id number] transfer 03-Partial/moderate assistance F. Toilet transfer 03-Partial/moderate assistance G. Car transfer 88-Not attempted due to medical condition or safety concerns I. Walk 10 feet 88-Not attempted due to medical condition or safety concerns J. Walk 50 feet with two turns 88-Not attempted due to medical condition or safety concerns K. Walk 150 feet 88-Not attempted due to medical condition or safety concerns L. Walking 10 feet on uneven surfaces 88-Not attempted due to medical condition or safety concerns M. 1 step (curb) 88-Not attempted due to medical condition or safety concerns N. 4 steps 88-Not attempted due to medical condition or safety concerns O. 12 steps 88-Not attempted due to medical condition or safety concerns P. Picking up object 88-Not attempted due to medical condition or safety concerns R. Wheel 50 feet with two turns 88-Not attempted due to medical condition or safety concerns S. Wheel 150 feet 88-Not attempted due to medical condition or safety concerns - Bladder and Bowel Bladder continence Bowel continence - Endurance Fair - Balance Fair - Safety Awareness Fair CURRENT [facility]. DEFICITS: Self-Care, Mobility, Endurance, Balance, and Safety Awareness SIGNATURE PANEL: (CDT)
[2021-06-16] MEDS: TRAZODONE 100 MG TABLET PO SCH ×2 (19:37→19:40)
[2021-06-16] MEDS: QUETIAPINE 100MG TAB PO SCH (19:39)
[2021-06-16] MEDS: MAGNESIUM OXIDE 400 MG TAB PO SCH (19:40)
[2021-06-16] MEDS: ZONISAMIDE 25 MG PO SCH (19:43)
--- NOTE | 2021-06-17 00:11 | PN ---
Date of Progress Note: 06/16/2021 Subjective: The patient was seen this morning for followup. No new complaints or problems reported by the patient. Objective: General: Lying in bed, not in distress. Vital Signs: Reviewed. HEENT: Unremarkable. Lungs: Clear to auscultation. Heart: Sounds normal. Abdomen: Soft. Bowel sounds normal. No guarding, rigidity, tenderness, or distention. Extremities: No leg edema. Laboratory Data: White count 7.9, hemoglobin 9.8, platelets 337. Sodium 142, potassium 4.4, chlorid e 108, bicarb 28, BUN 17, creatinine 0.73, glucose 106, albumin 3.1. Impression: 1.Right hip fracture. 2.Hypothyroidism. 3.Anemia due to acute blood loss. Plan: We will go ahead TSH for her. Continue current medication including levothyroxine. DVT prophylaxis with Eliquis. Continue current medication and we will see her tomorrow for followup . OMID/MODL Voice ID: [id number] Report ID: [id number]
[2021-06-17] MEDS: ACETAMINOPHEN 500 MG TAB PO SCH ×4 (04:45→21:19)
[2021-06-17] MEDS: LEVOTHYROXINE SOD 0.05 MG TABLET PO SCH (06:59)
[2021-06-17] MEDS: LIDOCAINE 4% PATCH TOP SCH (08:45)
[2021-06-17] MEDS: BUPROPION 200 MG PO SCH ×2 (08:46→21:20)
[2021-06-17] MEDS: OXYCODONE HCL 5 MG TAB PO PRN ×2 (08:49→14:13)
[2021-06-17] MEDS: VENLAFAXINE HCL XR 75 MG CAP PO SCH (08:50)
[2021-06-17] MEDS: ACYCLOVIR 400 MG TABLET PO SCH ×2 (08:51→21:19)
[2021-06-17] MEDS: MAGNESIUM OXIDE 400 MG TAB PO SCH ×2 (08:51→21:18)
[2021-06-17] MEDS: GABAPENTIN 100 MG CAP PO SCH (08:51)
[2021-06-17] MEDS: VITAMIN D 1000 UNIT TAB PO SCH (08:51)
[2021-06-17] MEDS: CELECOXIB 100 MG CAPSULE PO SCH ×2 (08:51→21:18)
[2021-06-17] MEDS: CALCIUM CARBONATE 500 MG TAB PO SCH ×2 (08:52→21:19)
[2021-06-17] MEDS: APIXABAN 2.5 MG TABLET PO SCH ×2 (08:52→21:18)
--- NOTE | 2021-06-17 10:10 | P.RH.PN ---
Estimated Length of Stay: 11 Expected Discharge Date: 06/21/21 Discharge Disposition Plan: Home Family Support: Yes Usp Goal: Mobility, Transfers, Self Care Vital Signs: Last Vital Signs Temp 98.2 F 06/17/21 07:16 Pulse 72 06/17/21 07:16 Resp 16 06/17/21 09:47 BP 116/51 L 06/17/21 07:16 Pulse Ox 94 06/17/21 09:47 Laboratory: Laboratory Last Values WBC 7.9 K/uL (4.3-10.9) D 06/16/21 04:13 RBC 3.19 M/uL (3.86-4.86) L 06/16/21 04:13 Hgb 9.8 g/dL (12.0-15.0) L 06/16/21 04:13 Hct 29.0 % (36.0-45.0) L 06/16/21 04:13 MCV 90.9 fL (80-100) 06/16/21 04:13 MCH 30.8 pg (27.0-35.0) 06/16/21 04:13 MCHC 33.9 g/dL (32.0-36.0) 06/16/21 04:13 RDW 13.8 % (12.1-15.2) 06/16/21 04:13 Plt Count 337 K/uL (152-406) D 06/16/21 04:13 MPV 7.2 fL (7.6-11.3) L 06/16/21 04:13 Neutrophils % 52.0 % (41.7-73.7) 06/16/21 04:13 Lymphocytes % 36.6 % (15.3-44.8) 06/16/21 04:13 Monocytes % 8.6 % (3.3-12.3) 06/16/21 04:13 Eosinophils % 2.4 % (0-4.4) 06/16/21 04:13 Basophils % 0.4 % (0-1.3) 06/16/21 04:13 Absolute Neutrophils 4.1 K/uL (1.8-8.0) 06/16/21 04:13 Absolute Lymphocytes 2.9 K/uL (0.7-4.9) 06/16/21 04:13 Absolute Monocytes 0.7 K/uL (0.1-1.3) 06/16/21 04:13 Absolute Eosinophils 0.2 K/uL (0-0.5) 06/16/21 04:13 Absolute Basophils 0.0 K/uL (0-0.5) 06/16/21 04:13 Sodium 142 mmol/L (136-145) 06/16/21 04:13 Potassium 4.4 mmol/L (3.5-5.1) 06/16/21 04:13 Chloride 108 mmol/L (98-107) H 06/16/21 04:13 Carbon Dioxide 28 mmol/L (21-32) 06/16/21 04:13 BUN 17 mg/dL (7-18) 06/16/21 04:13 Creatinine 0.73 mg/dL (0.55-1.3) 06/16/21 04:13 Estimated GFR 78 mL/min (=/>90) L 06/16/21 04:13 Glucose 106 mg/dL (74-106) 06/16/21 04:13 Calcium 9.1 mg/dL (8.5-10.1) 06/16/21 04:13 Magnesium 2.2 mg/dL (1.8-2.4) 06/16/21 04:13 Albumin 3.1 g/dL (3.4-5.0) L 06/16/21 04:13 Prealbumin 19.0 mg/dL (20-40) L 06/16/21 04:13 TSH 2.060 uIU/mL (0.360-3.740) 06/16/21 04:13 Urine Color Yellow (Yellow) 06/10/21 18:28 Urine Appearance Clear (Clear) 06/10/21 18:28 Urine pH 5.5 (5.0-7.0) 06/10/21 18:28 Ur Specific [place] 1.015 (1.005-1.030) 06/10/21 18:28 Glucose (UA)(Auto) Negative (Negative) 06/10/21 18:28 Urine Ketones Negative (Negative) 06/10/21 18:28 Urine Blood Negative (Negative) 06/10/21 18:28 Urine Nitrite Negative (Negative) 06/10/21 18:28 Urine Bilirubin Negative (Negative) 06/10/21 18:28 Urine Urobilinogen 0.2 mg/dL (0.2-1.0) 06/10/21 18:28 Ur Leukocyte Esterase Negative (Negative) 06/10/21 18:28 Urine RBC None seen /HPF (NONE SEEN) 06/10/21 18:28 Urine WBC <5 /HPF (<5) 06/10/21 18:28 Ur Squamous Epith Cells <5 /HPF (NONE SEEN) 06/10/21 18:28 Ur Urothelial Cells Cancelled 06/10/21 17:50 Calcium Oxalate Crystal Cancelled 06/10/21 17:50 Uric Acid Crystals Cancelled 06/10/21 17:50 Triple Phos Crystals Cancelled 06/10/21 17:50 Other Crystals Cancelled 06/10/21 17:50 Amorphous Sediment Cancelled 06/10/21 17:50 Glitter Cells Cancelled 06/10/21 17:50 Urine Bacteria <20 /HPF (<20) 06/10/21 18:28 Hyaline Casts Cancelled 06/10/21 17:50 Fine Granular Casts Cancelled 06/10/21 17:50 Coarse Granular Casts Cancelled 06/10/21 17:50 Waxy Casts Cancelled 06/10/21 17:50 RBC Casts Cancelled 06/10/21 17:50 WBC Casts Cancelled 06/10/21 17:50 Urine Mucus Cancelled 06/10/21 17:50 Urine Other Cancelled 06/10/21 17:50 Urine Trichomonas Cancelled 06/10/21 17:50 Urine Yeast Cancelled 06/10/21 17:50 Ur Yeast w Hyphae Cancelled 06/10/21 17:50 Urine Yeast (Budding) Cancelled 06/10/21 17:50 Urine Sperm Cancelled 06/10/21 17:50 Urine Culture Reflexed Not needed 06/10/21 18:28 Urine Total Volume Cancelled 06/10/21 17:50 Urine Total Protein Negative (Negative) 06/10/21 18:28 SARS-CoV-2 Rap RNA(RT-PCR) Negative (NEGATIVE) 06/17/21 04:54 Weight: 134 lb 4.8 oz Wound Present: No Closed Surgical Incision Present: Yes Negative Pressure Wound Therapy Present: No Physician Update: Mod-I with walking 1500' using a rolling walker. She is walking out doors with SBA. She has occasional right hip sharp at the surgical site. Labs are stable. Functional Improvement: Patient ambulates and completes transfers with Mod I, and is increasing her abillity to meet all goals. Summary: Patient's care plan and retirement goals have been reviewed and revised as necessary. Please see the Rehabilitation Signature page for all necessary signatures.
--- NOTE | 2021-06-17 20:53 | PN ---
Date of Progress Note: 06/17/2021 Subjective: The patient was seen this morning for followup. No new complaints, problems reported by the patient, lying in bed, not in any distress. Objective: Vital Signs: Reviewed. HEENT: Unremarkable. Lungs: Clear to auscultation. Heart: Sounds normal. Abdomen: Soft. Bowel sounds normal. No guarding, rigidity, tenderness, distention. Extremity: No leg edema. Impression: 1.Right hip fracture. 2.Anemia due to acute blood loss. 3.Hypothyroidism. Plan: We will continue current medications. Continue current thyroid supplement. Anticoagulation t herapy for DVT prophylaxis. Continue current pain medications. We will continue to provide physical therapy under guidance of Dr. Alaniz and I will see her tomorrow for followup. OMID/MODL Voice ID: [id number] Report ID: [id number]
[2021-06-17] MEDS: GABAPENTIN 300 MG CAP PO SCH (21:18)
[2021-06-17] MEDS: QUETIAPINE 100MG TAB PO SCH (21:20)
[2021-06-17] MEDS: ZONISAMIDE 25 MG PO SCH (21:21)
[2021-06-17] MEDS: TRAZODONE 100 MG TABLET PO SCH (21:21)
[2021-06-18] MEDS: ACETAMINOPHEN 500 MG TAB PO SCH ×4 (04:00→19:09)
[2021-06-18 05:31] VITALS: BMI 24.5
[2021-06-18] MEDS: LEVOTHYROXINE SOD 0.05 MG TABLET PO SCH (05:33)
[2021-06-18] MEDS: MAGNESIUM OXIDE 400 MG TAB PO SCH ×2 (08:00→19:09)
[2021-06-18] MEDS: ACYCLOVIR 400 MG TABLET PO SCH ×2 (08:29→19:09)
[2021-06-18] MEDS: GABAPENTIN 300 MG CAP PO SCH ×2 (08:30→19:09)
[2021-06-18] MEDS: VENLAFAXINE HCL XR 75 MG CAP PO SCH (08:30)
[2021-06-18] MEDS: APIXABAN 2.5 MG TABLET PO SCH ×2 (08:30→19:10)
[2021-06-18] MEDS: CELECOXIB 100 MG CAPSULE PO SCH ×2 (08:30→19:09)
[2021-06-18] MEDS: VITAMIN D 1000 UNIT TAB PO SCH (08:30)
[2021-06-18] MEDS: LIDOCAINE 4% PATCH TOP SCH (08:31)
[2021-06-18] MEDS: CALCIUM CARBONATE 500 MG TAB PO SCH ×2 (08:31→19:10)
[2021-06-18] MEDS: BUPROPION 200 MG PO SCH ×2 (08:31→19:10)
[2021-06-18] MEDS: OXYCODONE HCL 5 MG TAB PO PRN (08:35)
--- NOTE | 2021-06-18 13:14 | PN ---
Date of Progress Note: 06/18/2021 Subjective: The patient was seen this morning for followup. No new complaints or problems reported. She was sitting in a wheelchair this morning when I saw her. 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 Objective: Vital Signs: Reviewed. HEENT: Unremarkable. Lungs: Clear to auscultation. Heart: Sounds normal. Abdomen: Soft. Bowel sounds normal. No guarding, rigidity, tenderness, or distention. Extremities: No leg edema. Her right great toe was examined as she was complaining of some irritati on to the skin around the nail bed and was concerned if she has any infection or not. Upon examinati on, there was no evidence of any infection there, but she is at home when something like this happen, she applies Neosporin and nurse was advised to do so. There was no evidence of any cellulitis or in growing toenail. There was no tenderness of the skin around the nail bed area. OMID/MODL Voice ID: [id number] Report ID: [id number]
[2021-06-18] MEDS: TRAZODONE 100 MG TABLET PO SCH (19:10)
[2021-06-18] MEDS: QUETIAPINE 100MG TAB PO SCH (19:10)
[2021-06-18] MEDS: ZONISAMIDE 25 MG PO SCH (19:14)
[2021-06-19] MEDS: ACETAMINOPHEN 500 MG TAB PO SCH ×3 (03:49→19:05)
[2021-06-19] MEDS: LEVOTHYROXINE SOD 0.05 MG TABLET PO SCH (05:15)
[2021-06-19] MEDS: MAGNESIUM OXIDE 400 MG TAB PO SCH ×2 (07:35→19:05)
[2021-06-19] MEDS: ACYCLOVIR 400 MG TABLET PO SCH ×2 (07:36→19:05)
[2021-06-19] MEDS: CALCIUM CARBONATE 500 MG TAB PO SCH ×2 (07:36→19:05)
[2021-06-19] MEDS: APIXABAN 2.5 MG TABLET PO SCH ×2 (07:36→19:05)
[2021-06-19] MEDS: CELECOXIB 100 MG CAPSULE PO SCH ×2 (07:37→19:05)
[2021-06-19] MEDS: VENLAFAXINE HCL XR 75 MG CAP PO SCH (07:37)
[2021-06-19] MEDS: GABAPENTIN 300 MG CAP PO SCH ×2 (07:37→19:05)
[2021-06-19] MEDS: VITAMIN D 1000 UNIT TAB PO SCH (07:37)
[2021-06-19] MEDS: BUPROPION 200 MG PO SCH ×2 (07:38→19:05)
[2021-06-19] MEDS: LIDOCAINE 4% PATCH TOP SCH (09:18)
[2021-06-19] MEDS: OXYCODONE HCL 5 MG TAB PO PRN (17:21)
[2021-06-19] MEDS: ZONISAMIDE 25 MG PO SCH (19:04)
[2021-06-19] MEDS: QUETIAPINE 100MG TAB PO SCH (19:05)
[2021-06-19] MEDS: TRAZODONE 100 MG TABLET PO SCH (20:19)
[2021-06-20] MEDS: ACETAMINOPHEN 500 MG TAB PO SCH ×3 (04:30→20:53)
[2021-06-20] MEDS: LEVOTHYROXINE SOD 0.05 MG TABLET PO SCH (05:12)
[2021-06-20] MEDS: OXYCODONE HCL 5 MG TAB PO PRN (07:58)
[2021-06-20] MEDS: CALCIUM CARBONATE 500 MG TAB PO SCH ×2 (07:59→20:53)
[2021-06-20] MEDS: VENLAFAXINE HCL XR 75 MG CAP PO SCH (07:59)
[2021-06-20] MEDS: BUPROPION 200 MG PO SCH ×2 (07:59→20:55)
[2021-06-20] MEDS: APIXABAN 2.5 MG TABLET PO SCH ×2 (07:59→20:54)
[2021-06-20] MEDS: MAGNESIUM OXIDE 400 MG TAB PO SCH ×2 (07:59→20:53)
[2021-06-20] MEDS: VITAMIN D 1000 UNIT TAB PO SCH (07:59)
[2021-06-20] MEDS: GABAPENTIN 300 MG CAP PO SCH ×2 (07:59→20:53)
[2021-06-20] MEDS: CELECOXIB 100 MG CAPSULE PO SCH ×2 (08:00→20:53)
[2021-06-20] MEDS: LIDOCAINE 4% PATCH TOP SCH (13:26)
--- NOTE | 2021-06-20 17:55 | R.PN ---
PROGRESS NOTES ENCOUNTER DATE AND TIME: 06/20/2021 17:51 (CDT) NAME LENIN DIAS DATE OF : 1945 DATE OF ADMISSION: 06/10/2021 15:54 (CDT) RIGHT INTERTROCHANTERIC FEMUR FX (06/08/21)CHIEF COMPLAINT: Right hip fracture SUBJECTIVE: Pt denied any depression. Pt denied any Shortness of Breath. WBC 7.9, Hgb 9.8, prealbumin 19.0, Ca 9.1, UA is negative, covid-19 test is negative. TSH 2.06. Ambulated 1500' with walker, no loss of balance and modified independence, WBAT. VITAL SIGNS Temperature: 97.6 F SBP/DBP: 131/61 Pulse: 72 Resp: 16 MEDICATION ALLERGIES: No Known Drug Allergies (NKDA) ENVIRONMENTAL ALLERGIES: - Substance Allergies None Known - Other Allergies None Known NURSING: - Shower allowing shower - Skin care per protocol PRECAUTIONS: - Weight Bearing Precaution WBAT right LE ACTIVITIES OOB only with supervision THERAPIES: - Dietary and Nutrition Adequate Nutrition. Nutritional Education. Nutritional Supplements. Evaluate and Treat. - Occupational Therapy Cognitive Retraining. Patient needs Occupational Therapy for a daily minimum of 1.5 hours at least 5 out of 7 days, to improve Activities of Daily Living, including: Eating, Grooming, Bathing, Dressing, Toileting, Toilet Transfers, Community Reintegration, Higher functional activities, Adaptive Equipme nt, Splinting, Household Tasks, and Other activities as determined. Visual Perceptual Training. Evalu ate and Treat. Patient/Family Education. Safety Awareness. Transfer Training. ADL Training. Household Tasks. Adaptive Equipment. UE Strengthening. - Speech Therapy Cognitive Training. Expressive Language Skills. Memory Strategies. Patient needs Speech Therapy for a daily minimum of 1.5 hours at least 5 out of 7 days, to improve: Swallowing, Cognition, Language Ski lls, and Compensatory Strategies. Receptive Language Skills. Speech Intelligibility Training. Evaluat e and Treat. - Physical Therapy Patient needs Physical Therapy for a daily minimum of 1.5 hours at least 5 out of 7 days, to improve: Mobility, Strengthening, Transfers, Stretching, ROM, Endurance, Ability to manage stairs, Gait, and Balance. Mobility Training. Gait Training. Safety Awareness. Balance Training. Transfer Training. Charline luate and Treat. Patient/Family Education. LE Strengthening. PHYSICAL EXAM - Gen Alert and awake Lying in bed No apparent distress Oriented to: person, time, and place - Skin No breakdown No abnormalities - Eyes No abnormalities - ENMT No abnormalities - Neck No abnormalities - CVS RRR - Chest No abnormalities - Abd Soft - GI Non distended Deferred - No abnormalities - Ext Right hip surgical site has good hemostasis. - MSK 4+/5 weakness in right lower extremity - Neuro 4/5 strength right lower extremity. ASSESSMENT: Pt. is a 75 yo Right-handed female.On 06/08/[address] [facility] with diagnosis RIGHT INTERTROCHANTERIC FEMUR FX (06/08/21).Her impairment category is Orthopaedic Disorders 08 - Uni lateral Hip Fracture (08.).Pre-morbidly, Pt. was independent/mod-I in Locomotion, Safety Awareness, Social Cognition, Balance, and Transfers Control; and she had good Sphincter Control, Communication, Self-Care, and Endurance.Currently, she has deficits of Locomotion, Social Cognition, Balance, Sphin cter Control, Self-Care, Communication, Endurance, Transfers Control, and Safety Awareness.Pt. is now referred to [facility] for acute in-patient rehabilitation in order to maximi ze patient's functional independence in activities of daily living, strength, ROM, and mobility.- Maurice ab Goal Patient has realistic goal of being discharged at assistance level 7-Ind to reside at Home with Fami ly/Relatives. MDM/PLAN: - Physical Therapy Decreased range of motion - to improve, our physical therapists will perform initial evaluation of p t's status upon admission and devise an individualized program for increasing patient's Range of Natan on. Gait dysfunction - to improve, our physical therapists will perform initial evaluation of pt's statu s upon admission and devise an individualized program for Gait Training, and Wheel Chair mobility Inability to transfer - to improve, our physical therapists will perform initial evaluation of pt's status upon admission and devise an individualized program for Bed mobility Need for home safety evaluation - to improve, our physical therapists will perform initial evaluatio n of pt's status upon admission and devise an individualized program for Home Evaluation Need in caregiver upon discharge - to improve, our physical therapists will perform initial evaluati on of pt's status upon admission and devise an individualized program for Caregiver Training New precaution - to improve, our physical therapists will perform initial evaluation of pt's status upon admission and devise an individualized program for Patient precaution education Poor balance - to improve, our physical therapists will perform initial evaluation of pt's status up on admission and devise an individualized program for Balance Training Poor endurance - to improve, our physical therapists will perform initial evaluation of pt's status upon admission and devise an individualized program for Endurance Training Weakness - to improve, our physical therapists will perform initial evaluation of pt's status upon a dmission and devise an individualized program for Aquatic Therapy, Neuromuscular Reeducation, and Str engthening Achieving independence - to improve, our physical therapists will perform initial evaluation of pt's status upon admission and devise an individualized program for Community Reintegration Activities - Occupational Therapy ADL deficits - to improve, our occupation therapists will perform initial evaluation of pt's status upon admission and devise an individualized program for Bathing, Bed mobility, Community Reintegratio n, Cooking, Dressing, Eating, Fine Motor Skills, Grooming, Homemaking, Kitchen Mobility, Laundry, Pat ient Education, Safety Awareness, Splinting - Positioning, Transfers(Toilet, Tub, Shower), and Wheel Chair Management Cognitive deficits - to improve, our occupation therapists will perform initial evaluation of pt's s tatus upon admission and devise an individualized program for Cognition - orientation Need for gericare aide - to improve, our occupation therapists will perform initial evaluation of pt's status upon admission and devise an individualized program for Caregiver Training Weakness - to improve, our occupation therapists will perform initial evaluation of pt's status upon admission and devise an individualized program for Aquatic Therapy, Balance, Endurance, UE ROM, and UE strengthening - Other See attached MAR (Medication Administration Record) - Anterior Hip Precaution No abduction No active extension No adduction across midline No external rotation No hip flexion >90 degrees No internal rotation - Diet - Liquid Texture Continue Regular - Tube Feed Continue N/A - Diet Type Continue Regular - Posterior Hip Precaution No adduction across midline No external rotation No hip flexion >90 degrees No internal rotation No wheel chair propulsion - Weight Bearing Precaution WBAT right LE - Skin care per protocol - Diet - Solid Texture Continue Regular - Shower allowing shower FUNCTIONAL STATUS: UPDATED AT WEEKLY TEAM CONFERENCE - Bladder Same accident frequency: 7-Ind - No accidents in the past 7 days - Bowel Same accident frequency: 7-Ind - No accidents in the past 7 days - Walking Same score based on distance walked: 0(N/A) Same score based on distance walked: 1(<=50ft) - Wheelchair Same score based on distance traveled: 0(N/A) FUNCTIONAL STATUS: - Self-Care A. Eating Ind B. Grooming Rubina C. Bathing Na D. Dressing - Upper Na E. Dressing - Lower modA F. Toileting Na - Sphincter Control G. Bladder control Rubina H. Bowel control Rubina - Transfers Control I. Bed/Chair/Wheelchair Na J. Toilet Na K. Tub/Shower modA - Locomotion L. Walk/Wheelchair (B) modA M. Stairs ADNO - Communication N. Comprehension (B) Rubina O. Expression (B) Rubina - Social Cognition P. Social Interaction Ind Q. Problem Solving Rubina R. Memory Rubina - Endurance Fair - Balance Fair - Safety Awareness Good QI SCORES: - Self-Care A. Eating 03-Partial/moderate assistance B. Oral hygiene 03-Partial/moderate assistance C. Toileting hygiene 03-Partial/moderate assistance E. Shower/bathe self 03-Partial/moderate assistance F. Upper body dressing 03-Partial/moderate assistance G. Lower body dressing 02-Substantial/maximal assistance H. Putting on/taking off footwear 88-Not attempted due to medical condition or safety concerns - Mobility A. Roll left and right 03-Partial/moderate assistance B. Sit to lying 03-Partial/moderate assistance C. Lying to sitting on side of bed 03-Partial/moderate assistance D. Sit to stand 03-Partial/moderate assistance E. Chair/cip-hy-eshfm transfer 03-Partial/moderate assistance F. Toilet transfer 03-Partial/moderate assistance G. Car transfer 88-Not attempted due to medical condition or safety concerns I. Walk 10 feet 88-Not attempted due to medical condition or safety concerns J. Walk 50 feet with two turns 88-Not attempted due to medical condition or safety concerns K. Walk 150 feet 88-Not attempted due to medical condition or safety concerns L. Walking 10 feet on uneven surfaces 88-Not attempted due to medical condition or safety concerns M. 1 step (curb) 88-Not attempted due to medical condition or safety concerns N. 4 steps 88-Not attempted due to medical condition or safety concerns O. 12 steps 88-Not attempted due to medical condition or safety concerns P. Picking up object 88-Not attempted due to medical condition or safety concerns R. Wheel 50 feet with two turns 88-Not attempted due to medical condition or safety concerns S. Wheel 150 feet 88-Not attempted due to medical condition or safety concerns - Bladder and Bowel Bladder continence Bowel continence - Endurance Fair - Balance Fair - Safety Awareness Fair CURRENT [facility]. DEFICITS: Self-Care, Mobility, Endurance, Balance, and Safety Awareness SIGNATURE PANEL: (CDT)
[2021-06-20] MEDS: QUETIAPINE 100MG TAB PO SCH (20:52)
[2021-06-20] MEDS: TRAZODONE 100 MG TABLET PO SCH (20:54)
[2021-06-20] MEDS: ZONISAMIDE 25 MG PO SCH (20:55)
--- NOTE | 2021-06-21 00:35 | PN ---
Date of Progress Note: 06/20/2021 Subjective: The patient was seen this morning for followup. No new complaints or problems reported by patient. She was lying in bed, not in distress except reported that she was having lot more pain in her right hip, right thigh area yesterday. Over the weekend, she reported that her pain medicatio n was not coinciding with the therapy time. Objective: Vital Signs: Reviewed. Denies any constipation. HEENT: Unremarkable. Lungs: Clear to auscultation. Heart: Heart sounds normal. Abdomen: Soft, bowel sounds normal. No guarding, rigidity, tenderness, distention. Extremities: No leg edema. Right lateral thigh shows very well appearing surgical site with presenc e of sutures. No evidence of any discharge, bleeding, gapping, or redness. No tenderness. No disch arge. Impression: 1.Right hip fracture. 2.Hypothyroidism. 3.Anemia due to acute blood loss. Plan: We will continue current levothyroxine. The patient is on oxycodone 5 mg every 6 hours as nee ded, and I have added OxyContin 10 mg extended release tablet, 1 tablet daily in morning and we will see how that helps to control her pain. Physical therapy to be provided under guidance of Dr. Samuel vargas. I will see her in the morning for followup. OMID/MODL Voice ID: [id number] Report ID: [id number]
[2021-06-21] MEDS: ACETAMINOPHEN 500 MG TAB PO SCH ×3 (04:00→12:22)
[2021-06-21 07:27] VITALS: BP 120/55; TEMP 98.2
[2021-06-21] MEDS: LIDOCAINE 4% PATCH TOP SCH (07:38)
[2021-06-21] MEDS: LEVOTHYROXINE SOD 0.05 MG TABLET PO SCH (07:38)
[2021-06-21] MEDS: VENLAFAXINE HCL XR 75 MG CAP PO SCH (08:00)
[2021-06-21] MEDS ORDERED: OXYCODONE *CR* 10 MG TAB PO SCH (08:00)
[2021-06-21] MEDS: OXYCODONE HCL 5 MG TAB PO PRN (08:17)
[2021-06-21] MEDS: BUPROPION 200 MG PO SCH (08:17)
[2021-06-21] MEDS: VITAMIN D 1000 UNIT TAB PO SCH (08:18)
[2021-06-21] MEDS: CALCIUM CARBONATE 500 MG TAB PO SCH (08:18)
[2021-06-21] MEDS: MAGNESIUM OXIDE 400 MG TAB PO SCH (08:18)
[2021-06-21] MEDS: APIXABAN 2.5 MG TABLET PO SCH (08:18)
[2021-06-21] MEDS: CELECOXIB 100 MG CAPSULE PO SCH (08:18)
[2021-06-21] MEDS: GABAPENTIN 300 MG CAP PO SCH (08:18)
[2021-06-21] MEDS ORDERED: VENLAFAXINE HCL XR 75 MG CAP PO SCH (09:00)
--- NOTE | 2021-06-22 06:48 | DS ---
Date of Discharge: 06/21/2021 Disposition: Discharged to go home. Physical Examination: HEENT: Unremarkable. Lungs: Clear to auscultation. Heart: Heart sounds normal. Abdomen: Soft. Bowel sounds normal. No guarding, rigidity, tenderness, or distention. Extremities: No leg edema. Hospital Course: This is a 75-year-old female patient who was admitted to rehab floor from outside [facility] after she had surgery for her hip fracture. The patient was brought to our rehab floor for r ehab therapy. Dr. Alaniz from Neurology was consulted to help manage her rehab therapy. Her medic al problems remained stable. Her usual home medications were continued. Initially, she was getting subcutaneous injection of Lovenox for DVT prophylaxis, which was changed to Eliquis 2.5 mg 2 times a day and she has tolerated that very well. Pain medication, oxycodone 5 mg every 6 hours as needed wa s given to her for pain control. She has a surgical scar over right lateral hip, which has not shown any signs of any concerns or any complications. She has appointment to see her orthopedic surgeon t his week on Sunday and at that time she will get suture removal. I have advised her to come see me n ext week at office for followup. Overall, her condition has improved during this hospitalization and today she was discharged to go home in stable condition. Final Diagnoses: 1.Right hip intertrochanteric fracture, status post surgery. 2.Anemia due to acute blood loss. 3.Hypothyroidism. 4.Mixed hyperlipidemia. 5.Chronic obstructive pulmonary disease. 6.Anxiety. 7.Depression. 8.Right breast cancer. 9.Osteoporosis. 10.Malnutrition, mild. 11.Impaired fasting glucose. Laboratory Data: Upon admission, white count was 6.8 on 06/11/2021 with hemoglobin 9.7, and a platel et count 202. Last CBC from June 16, 2021, white count 7.9, hemoglobin 9.8, platelets 337. Her amber elliott from 06/11/2021; sodium 142, potassium 4.3, chloride 113, bicarb 27, BUN 16, creatinine 0.70, glucose 93. Albumin 2.8. On 06/16/2021, sodium 142, potassium 4.4, chloride 108, bicarb 28, BUN 17, creatinine 0.73, glucose 106, serum albumin 3.1. Her TSH was 2.06. Discharge Medications And Instructions: 1.Continue all prior home medications. 2.Follow up with collection support specialist in [place] this week on Sunday as per your appointment. 3.Follow up at my office next week on Sunday or Sunday and the patient to call office for appointme nt. 4.Eliquis 2.5 mg take 1 tablet by mouth 2 times a day for 20 days. 5.Take oxycodone 5 mg take 1 tablet by mouth 2 times a day as needed for pain. 6.Tylenol 500 mg by mouth 4 times a day as needed for pain. OMID/MODL Voice ID: [id number] Report ID: [id number]
== END 2021-06-21 14:30 | disposition home or self-care (01) | DRG 560 ==
LOC: 5TH 15:54
PROVIDERS: ADMIT Internal Medicine; ATTEND Internal Medicine
DX: S72.141D Displaced intertrochanteric fracture of right femur, subsequent encounter for closed fracture with routine healing (principal); E44.1 Mild protein-calorie malnutrition; D62 Acute posthemorrhagic anemia; E03.9 Hypothyroidism, unspecified; E78.2 Mixed hyperlipidemia; J44.9 Chronic obstructive pulmonary disease, unspecified; F41.9 Anxiety disorder, unspecified; F32.A Depression, unspecified; M81.0 Age-related osteoporosis without current pathological fracture; Z68.24 Body mass index [BMI] 24.0-24.9, adult; B00.1 Herpesviral vesicular dermatitis; Z88.0 Allergy status to penicillin; Z85.3 Personal history of malignant neoplasm of breast; Z20.822 Contact with and (suspected) exposure to COVID-19
CPT/HCPCS: 36415; 80048; 81003; 81015; 82040; 83735; 84134; 84443; 85025; 85610; 85730; 87086; 87088; 96361; 96374; 96375; 97110; 97116; 97161; 97530; 99285; J1170; J1650; J2800; J7030; U0002; U0003

== ENCOUNTER 2021-12-01 07:19 | Emergency (ER) | payer OTHER, MEDICARE ==
--- OUTSIDE RECORDS SUMMARY | 2021-12-01 07:21 | XMS REPORT | Continuity of Care Document ---
:[address] [facility] t Address [address] [place] [address] [address]. [address] [place] [address] Care Team Providers Name Role Phone [phone] Primary Care Physician Unavailable PRAKASH ANSARI Attending Clinician Unavailable KRISTOPHER GOLDSMITH Attending Clinician Unavailable CHERIE GODINEZ Attending Clinician Unavailable PASTOR BLANCO Attending Clinician Unavailable RHETT TSANG Attending Clinician Unavailable Radiology Attending Clinician Unavailable RADIOLOGY Attending Clinician Unavailable Doctor Unassigned, [place] Attending Clinician Unavailable LINETTE PATEL III Attending Clinician Unavailable MARCELLUS CAMACHO Admitting Clinician Unavailable LINETTE PATEL III Admitting Clinician Unavailable Payers Payer Name Policy Type Policy Number Effective Date Expiration Date Lizy rapp [facility] MEDICARE [id number] 2012 SUPPLEMENT 00:00:00 MEDICARE PART A AND [id number] 2011 B 00:00:00 [facility] [id number] 2012 00:00:00 MEDICARE PART A \T\ [id number] 2011 B 00:00:00 [facility] [id number] 2012 MEDICARE SUPPLEMENT 00:00:00 Problems Condition Condition Condition Status Onset Resolution Last Treating Co mments Source Name Details Category Date Date Treatment Clinician Date Closed Closed Disease Active [place] displaced displaced 07-20 [facility] inter[facility] intertroch 00:00: anteric anteric 00 fracture fracture of right of right femur femur Allergies, Adverse Reactions, Alerts Allergy Allergy Status Severity Reaction(s) Onset Inactive Treating Comm ents Source Name Type Date Date Clinician CODEINE DRUG Active Unknown-Cmnt 2018-03 Uni vers INGREDI 04-23 it[facility] of 00:[facility]: [place] [facility] PENICILL DRUG Active Unknown-Cmnt 2018-03 Un grayson IN INGREDI 04-23 ity of 00:00: [place] [facility] Penicill Allergy Active Shortness of Other U T ins to breath -24 reaction( Health substan 00:00: s): e 00 Unknown, Unknown - See commentsU rticaria, hives, rash, asthma/re spiratory distress Codeine Allergy Active Rash Other [place] to 2-24 reaction( Health substan 00:00: s): e 00 Unknown, Unknown - See commentsU rticaria, hives Social History Social Habit Start Date Stop Date Quantity Comments Source Exposure to SARS-CoV-2 2021-08-22 2021-09-01 Not sure [facility] (event) 00:00:00 13:41:00 Sex [birth year] [facility] 00:00:00 00:00:00 Smoking Status Start Date Stop Date Source Tobacco smoking consumption unknown [facility] Medications This patient has no known medications. Procedures This patient has no known procedures. Encounters Start End Encounter Admission Attending Care Care Encounter Source Date/Time Date/Time Type Type Clinicians Facility Department ID 2021-09-07 Outpatient ELAN, [facility] [id number] [place] 01:05:29 PRAKASH [id number] [facility] 2021-09-05 Outpatient [facility] [id number] [place] 01:06:58 [id number] [facility] 2021-09-01 Outpatient LISETH, [facility] [id number] [place] 13:42:16 REEJU [id number] [facility] 2021-08-31 Outpatient [facility] [id number] [place] 13:36:11 [id number] [facility] 2021-08-26 Outpatient [facility] [id number] [place] 10:15:59 [id number] [facility] 2021-07-25 Outpatient [facility] [id number] [place] 01:07:01 [id number] [facility] 2021-07-21 Outpatient HERBERT, [facility] [id number] [place] 13:59:45 CHERIE [id number] [facility] 2021-07-18 Outpatient [facility] [id number] [place] 07:32:33 [id number] [facility] 2021-06-27 Outpatient [facility] [id number] [place] 01:06:16 [id number] [facility] 2021-06-23 Outpatient LISETH, [facility] [id number] [place] 06:46:13 KRISTOPHER [id number] [facility] 2021-06-22 Outpatient [facility] [id number] [place] 16:36:17 [id number] [facility] 2021-06-17 Outpatient ELAN [facility] [id number] [place] 03:20:02 PRAKASH [id number] [facility] 2021-06-16 Outpatient [facility] [id number] [place] 18:48:25 [id number] [facility] 2021-06-13 Outpatient ELAN [facility] [id number] [place] 10:09:19 PRAKASH [id number] [facility] 2021-09-01 2021-09-01 Office Liseth, [facility] 6414 [id number] [place] 13:45:00 14:40:[address] [id number] Health [id number] 2021-07-21 2021-07-21 Office Herbert, [facility] 6414 [id number] [place] 14:15:00 15:11:[address] [id number] Health [id number] 2021-06-23 2021-06-23 Office Liseth, [facility] 6414 [id number] [place] 14:00:00 14:23:[address] [id number] Health [id number] 2020-12-20 2020-12-20 Outpatient PRADEEP DESAI MDA [id number] 14:32:34 14:32:34 Jason [place] 2020-12-20 2020-12-20 Outpatient PASTOR NUNN MDA MDA [id number] 13:27:07 13:27:07 Jason hill 2020-12-20 2020-12-20 Outpatient PRADEEP TSANG MDA MDA [id number] 10:02:16 11:22:07 RHETT hill 2019-04-01 2019-04-01 [facility] Radiology [facility] [id number] 10:33:00 23:59:00 Encounter Jean-Paul [id number] [place] [id number] [place] [id number] 2019-04-01 2019-04-01 Outpatient R RADIOLOGY [facility] [id number] [facility] 10:33:11 10:32:00 elmo [facility] 2019-04-01 2019-04-01 [facility] Radiology [facility] [id number] 10:30:00 10:32:00 Encounter Jean-Paul [id number] [place] [id number] [place] [id number] 2019-04-01 2019-04-01 Orders Doctor ILENE [id number] 00:00:00 00:00:00 Only Unassigned, DONNA [id number] [place] [facility] [id number] 2019-02-20 2019-02-20 Emergency X JORGE III, [facility] ERT [id number] [employer] 12:58:20 16:08:00 LINETTE borrego [facility] Results This patient has no known results.
[2021-12-01] MEDS ORDERED: CEFTRIAXONE 1000 MG/VIAL ONE (08:13)
[2021-12-01] MEDS ORDERED: NA CHLORIDE 0.9% 50 ML ONE (08:14)
[2021-12-01] MEDS ORDERED: NA CHLORIDE 0.9% 2,000 ML ONE (08:14)
[2021-12-01] MEDS ORDERED: ONDANSETRON 4 MG/2 ML VIAL ONE (08:14)
--- NOTE | 2021-12-01 08:23 | RAD REPORT ---
EXAM DESCRIPTION: Paulina Single View12/01/2021 8:03 am CLINICAL HISTORY: Cough COMPARISON: April 2021 FINDINGS: The lungs appear clear of acute infiltrate. The heart is normal size Postsurgical changes right breast IMPRESSION: No acute abnormalities displayed
[2021-12-01 08:40] LABS: Absolute Lymphocytes (CBC) 1.4 K/uL (0.7-4.9); Hematocrit 34.4 % (36.0-45.0); Lymphocytes % 21.4 % (15.3-44.8); MCV 90.4 fL (80-100); MPV 7.3 fL (7.6-11.3)
[2021-12-01 08:46] LABS: Protime INR 0.96
[2021-12-01 09:01] LABS: Albumin 3.6 g/dL (3.4-5.0); Bilirubin Direct 0.1 mg/dL (0-0.2); Bilirubin Total 0.3 mg/dL (0.2-1.0); Magnesium 2.1 mg/dL (1.8-2.4); Protein, Total 6.9 g/dL (6.4-8.2); Troponin High Sensitivity 4.4 pg/mL (<58.9)
--- NOTE | 2021-12-01 09:33 | RAD REPORT ---
EXAM DESCRIPTION: CT - Head C Spine Mpr Wo Con - 12/01/2021 9:22 am CLINICAL HISTORY: Head and neck injury status post fall. Head and neck pain COMPARISON: None. TECHNIQUE: Computed axial tomography of the head and cervical spine was obtained. Sagittal and coronal reconstruction was performed. All CT scans are performed using dose optimization technique as appropriate and may include automated exposure control or mA/KV adjustment according to patient size. FINDINGS: An intracranial bleed is not seen. The ventricles are normal in caliber. An extra-axial fl uid collection is not noted.Fluid within the visualized sinuses and mastoids is not seen A cervical fracture is not visualized. No dislocation is noted. IMPRESSION: No acute intracranial abnormality is seen. A cervical fracture is not visualized. If the patient continues to have symptoms to suggest intracra nial /spinal cord pathology then MRI would be recommended
--- NOTE | 2021-12-01 09:36 | RAD REPORT ---
EXAM DESCRIPTION: CT - Chest For Pe Angio - 12/01/2021 9:22 am CLINICAL HISTORY: Shortness of breath COMPARISON: April 2021 TECHNIQUE: Dynamically enhanced axial 3 mm thick images of the chest were obtained during administra tion of <100> mL Isovue 370 IV contrast. Coronal and oblique reconstruction images were generated and reviewed. Exam utilizes a protocol for optimal evaluation of pulmonary arterial tree. Maximum intensity projections 3D imaging was utilized All CT scans are performed using dose optimization technique as appropriate and may include automated exposure control or mA/KV adjustment according to patient size. FINDINGS: A pulmonary embolus is not seen. A thoracic aortic aneurysm is not noted. A pleural effusion is not seen. A pericardial effusion is not seen. A lung consolidation is not present. IMPRESSION: Negative for a pulmonary embolism.
--- NOTE | 2021-12-01 09:40 | RAD REPORT ---
EXAM DESCRIPTION: CT - Abdomen Pelvis W Contrast - 12/01/2021 9:22 am CLINICAL HISTORY: Abdominal pain COMPARISON: 2019 TECHNIQUE: Computed axial tomography of the abdomen pelvis was obtained. 100 cc Isovue-300 was admin istered intravenously. Oral contrast was not requested which limits evaluation of bowel and appendix All CT scans are performed using dose optimization technique as appropriate and may include automated exposure control or mA/KV adjustment according to patient size. FINDINGS: The liver, spleen, pancreas, adrenal and right kidney appear unremarkable. 3 millimeter nonobstructing calculus left kidney. There is no evidence of diverticulitis. Moderate amount stool within the colon No adnexal mass. IMPRESSION: Moderate amount of stool within the colon Small nonobstructing left renal calculus
[2021-12-01 09:49] LABS: Urine Blood Negative (Negative); Urine Glucose Negative (Negative); Urine Protein Negative (Negative); Urine Specific Gravity >=1.030 (1.005-1.030); Urine pH 5.5 (5.0-7.0)
--- NOTE | 2021-12-01 10:08 | ER ---
Nurse's Notes [facility] Name: Rachel Walker Age: 75 yrs Sex: Female : 1945 Arrival Date: 12/01/2021 Time: 07:22 Bed 7 Private MD: Jose Antonio Falcon C Diagnosis: Fall on same level, unspecified;UTI/ Urinary tract infection, site not specified;Dysphagia Presentation: 12/01 07:27 Chief complaint: Patient states: i couldn't hardly breathe and had food stuck in throat tw2 this morning. i took one bite of a bagel i couldn't breathe couldn't get it to go up or down. and then i finally threw it up in the parking lot. i had COVID 15 days ago. i have been symptom free for 10 days. i think it all stems from when i fell and hurt my back Sunday. denies LOC. i thought i bruised my shoulder but it has gotten worse. RIGHT shoulder. Coronavirus screen: shortness of breath, At this time, the client does not indicate any symptoms associated with coronavirus-19. Ebola Screen: Patient denies travel to an Ebola-affected area in the 21 days before illness onset. Initial Sepsis Screen: Does the patient meet any 2 criteria? No. Patient's initial sepsis screen is negative. Does the patient have a suspected source of infection? No. Patient's initial sepsis screen is negative. Risk Assessment: Do you want to hurt yourself or someone else? Patient reports no desire to harm self or others. Onset of symptoms was December 01, 2021. 07:27 Method Of Arrival: Ambulatory tw2 07:27 Acuity: MAYA 3 tw2 Triage Assessment: 07:30 General: Appears in no apparent distress. well groomed, Behavior is calm, cooperative, tw2 appropriate for age. Pain: Complains of pain in right shoulder. Respiratory: Reports shortness of breath. GI: Reports vomiting, x1 to dislodge food in throat, denies nauseousness. Historical: - Allergies: 07:30 Codeine; tw2 07:30 PENICILLINS; tw2 - PMHx: 07:30 BREAST CA; Depression; Hypothyroidism; tw2 - PSHx: 07:30 right mastectomy; mastoidectomy, right; right hip; left knee, ligaments removed; tw2 - Immunization history:: Client reports receiving the 2nd dose of the Covid vaccine. - Social history:: Smoking status: Patient denies any tobacco usage or history of. Screenin:40 Abuse screen: Denies threats or abuse. Nutritional screening: No deficits noted. tw2 Tuberculosis screening: No symptoms or risk factors identified. Fall Risk Secondary diagnosis (15 points) impaired mobility, Ambulatory Aid- Crutches/Cane/Walker (15 pts). Assessment: 08:00 General: Appears comfortable, Behavior is calm, cooperative. Pain: Complains of pain in aa5 right shoulder and right side of body Pain currently is 3 out of 10 on a pain scale. Quality of pain is described as aching, Pain began post fall 4-6 days ago Is continuous. Neuro: Level of Consciousness is awake, alert, obeys commands, Oriented to person, place, time, situation. Cardiovascular: Heart tones S1 S2 present Rhythm is sinus rhythm. Respiratory: Reports shortness of breath Airway is patent Respiratory effort is even, unlabored, Respiratory pattern is regular, symmetrical, Breath sounds are clear bilaterally. GI: Abdomen is round non-distended, Bowel sounds present X 4 quads. Abd is soft and non tender X 4 quads. : No signs and/or symptoms were reported regarding the genitourinary system. EENT: Throat is clear Pt states "the right side of my throat feels like there is something stuck, I know there isn't anything but it feels like it" . Derm: Skin is pink, warm \\T\\ dry. Musculoskeletal: Range of motion: intact in all extremities. 08:54 Reassessment: Patient is alert, oriented x 3, equal unlabored respirations, skin aa5 warm/dry/pink. 10:29 Reassessment: Patient is alert, oriented x 3, equal unlabored respirations, skin aa5 warm/dry/pink. PO challenge completed, no difficulty swallowing noted or reported, will monitor for nausea/vomiting. . 10:55 Reassessment: Patient is alert, oriented x 3, equal unlabored respirations, skin aa5 warm/dry/pink. No nausea or vomiting noted/reported. . Vital Signs: 07:27 BP 133 / 80; Pulse 82; Resp 19; Temp 99(TE); Pulse Ox 99% on R/A; Weight 52.16 kg (R); tw2 Height 5 ft. 1 in. (154.94 cm); Pain 3/10; 08:54 BP 119 / 70; Pulse 67; Resp 16 S; Pulse Ox 100% on R/A; aa5 09:45 BP 144 / 75; Pulse 68; Resp 18 S; Pulse Ox 100% on R/A; aa5 10:30 BP 144 / 99; Pulse 70; Resp 16 S; Pulse Ox 99% on R/A; aa5 07:27 Body Mass Index 21.73 (52.16 kg, 154.94 cm) tw2 ED Course: 07:22 Patient arrived in ED. rg4 07:22 Jose Antonio Falcon MD is Private Physician. rg4 07:30 Triage completed. tw2 07:32 Arm band placed on. tw2 07:33 Bed in low position. Call light in reach. tw2 07:34 Nahum Krause MD is Attending Physician. ama 07:37 Nirmala Taylor, BELINDA is Primary Nurse. aa5 08:09 XRAY Chest (1 view) In Process Unspecified. EDMS 08:26 SARS-COV-2 RT PCR (Document "Date of Onset" if Symptomatic) Sent. kc6 08:28 Inserted saline lock: 20 gauge in left antecubital area, using aseptic technique. Blood aa5 collected. 08:28 Initial lab(s) drawn, by ia, sent to lab. First set of blood cultures drawn by me. aa5 08:40 Second set of blood cultures drawn by ia. aa5 09:23 CT Head C Spine In Process Unspecified. EDMS 09:23 CT Chest For PE Angio In Process Unspecified. EDMS 09:24 Abdomen In Process Unspecified. EDMS 10:07 Jose Antonio Falcon MD is Referral Physician. ama 10:09 Vania Nicholas MD is Referral Physician. ama 10:38 CT Abd/Pelvis - IV Contrast Only Sent. aa5 10:55 No provider procedures requiring assistance completed. aa5 10:55 IV discontinued, intact, bleeding controlled, No redness/swelling at site. Pressure aa5 dressing applied. Administered Medications: 08:48 Not Given (Patient Refused): Zofran (Ondansetron) 4 mg IVP once; over 2 minutes aa5 08:48 Drug: Rocephin (cefTRIAXone) 1 grams Route: IV; Rate: per protocol; Site: left aa5 antecubital; 09:00 Follow up: Response: No adverse reaction aa5 08:48 Drug: NS 0.9% 1000 ml Route: IV; Rate: 1 bolus; Site: left antecubital; aa5 09:45 Follow up: IV Status: Completed infusion; IV Intake: 1000ml aa5 10:24 Not Given (Physician Discretion): NS 0.9% 1000 ml IV at 125 ml/hr continuous aa5 Medication: 07:40 VIS not applicable for this client. tw2 Intake: 09:45 IV: 1000ml; Total: 1000ml. aa5 Outcome: 10:07 Discharge ordered by . ama 10:55 Discharged to home ambulatory. aa5 10:55 Condition: stable 10:55 Discharge instructions given to patient, Instructed on discharge instructions, follow up and referral plans. medication usage, Demonstrated understanding of instructions, follow-up care, medications, Prescriptions given X 2. 11:00 Patient left the ED. aa5 Signatures: Dispatcher [employer] EDMS Nahum Krause MD MD cha Calderon, Audri, RN RN aa5 Barb Grady RN RN 2 Mayra London 4 Dana Nye 6 Corrections: (The following items were deleted from the chart) 11:29 11:28 Patient left the ED. aa5 aa5
--- NOTE | 2021-12-01 10:08 | EDPHYS ---
Physician Documentation [facility] Name: Rachel Walker Age: 75 yrs Sex: Female : 1945 Arrival Date: 12/01/2021 Time: 07:22 Bed 7 Private MD: Jose Antonio Falcon C ED Physician Nahum Krause HPI: 12/01 10:05 This 75 yrs old Female presents to ER via Ambulatory with complaints of ama Vomiting, Breathing Difficulty. 10:05 The patient presents to the emergency department with nausea, vomiting, that is ama intermittent. Onset: The symptoms/episode began/occurred just prior to arrival, this morning. Possible causes: unknown. The symptoms are aggravated by nothing. The symptoms are alleviated by remaining still. Associated signs and symptoms: The patient has no apparent associated signs or symptoms. Severity of symptoms: At their worst the symptoms were mild in the emergency department the symptoms are unchanged. The patient has not experienced similar symptoms in the past. Historical: - Allergies: 07:30 Codeine; tw2 07:30 PENICILLINS; tw2 - PMHx: 07:30 BREAST CA; Depression; Hypothyroidism; tw2 - PSHx: 07:30 right mastectomy; mastoidectomy, right; right hip; left knee, ligaments removed; tw2 - Immunization history:: Client reports receiving the 2nd dose of the Covid vaccine. - Social history:: Smoking status: Patient denies any tobacco usage or history of. ROS: 10:05 Constitutional: Negative for fever, chills, and weight loss, Eyes: Negative for injury, ama pain, redness, and discharge, ENT: Negative for injury, pain, and discharge, Neck: Negative for injury, pain, and swelling, Cardiovascular: Negative for chest pain, palpitations, and edema, Respiratory: Negative for shortness of breath, cough, wheezing, and pleuritic chest pain, Back: Negative for injury and pain, : Negative for injury, bleeding, discharge, and swelling, MS/Extremity: Negative for injury and deformity, Skin: Negative for injury, rash, and discoloration, Neuro: Negative for headache, weakness, numbness, tingling, and seizure, Psych: Negative for depression, anxiety, suicide ideation, homicidal ideation, and hallucinations, Allergy/Immunology: Negative for hives, rash, and allergies, Endocrine: Negative for neck swelling, polydipsia, polyuria, polyphagia, and marked weight changes, Hematologic/Lymphatic: Negative for swollen nodes, abnormal bleeding, and unusual bruising. 10:05 Abdomen/GI: Positive for nausea and vomiting. Exam: 10:05 Constitutional: This is a well developed, well nourished patient who is awake, alert, ama and in no acute distress. Head/Face: Normocephalic, atraumatic. Eyes: Pupils equal round and reactive to light, extra-ocular motions intact. Lids and lashes normal. Conjunctiva and sclera are non-icteric and not injected. Cornea within normal limits. Periorbital areas with no swelling, redness, or edema. ENT: Nares patent. No nasal discharge, no septal abnormalities noted. Tympanic membranes are normal and external auditory canals are clear. Oropharynx with no redness, swelling, or masses, exudates, or evidence of obstruction, uvula midline. Mucous membranes moist. Neck: Trachea midline, no thyromegaly or masses palpated, and no cervical lymphadenopathy. Supple, full range of motion without nuchal rigidity, or vertebral point tenderness. No Meningismus. Chest/axilla: Normal chest wall appearance and motion. Nontender with no deformity. No lesions are appreciated. Cardiovascular: Regular rate and rhythm with a normal S1 and S2. No gallops, murmurs, or rubs. Normal PMI, no JVD. No pulse deficits. Respiratory: Lungs have equal breath sounds bilaterally, clear to auscultation and percussion. No rales, rhonchi or wheezes noted. No increased work of breathing, no retractions or nasal flaring. Abdomen/GI: Soft, non-tender, with normal bowel sounds. No distension or tympany. No guarding or rebound. No evidence of tenderness throughout. Back: No spinal tenderness. No costovertebral tenderness. Full range of motion. Female : Normal external genitalia. Skin: Warm, dry with normal turgor. Normal color with no rashes, no lesions, and no evidence of cellulitis. MS/ Extremity: Pulses equal, no cyanosis. Neurovascular intact. Full, normal range of motion. Neuro: Awake and alert, GCS 15, oriented to person, place, time, and situation. Cranial nerves II-XII grossly intact. Motor strength 5/5 in all extremities. Sensory grossly intact. Cerebellar exam normal. Normal gait. Psych: Awake, alert, with orientation to person, place and time. Behavior, mood, and affect are within normal limits. 10:05 ECG was reviewed by the Attending Physician. Vital Signs: 07:27 BP 133 / 80; Pulse 82; Resp 19; Temp 99(TE); Pulse Ox 99% on R/A; Weight 52.16 kg (R); tw2 Height 5 ft. 1 in. (154.94 cm); Pain 3/10; 08:54 BP 119 / 70; Pulse 67; Resp 16 S; Pulse Ox 100% on R/A; aa5 09:45 BP 144 / 75; Pulse 68; Resp 18 S; Pulse Ox 100% on R/A; aa5 10:30 BP 144 / 99; Pulse 70; Resp 16 S; Pulse Ox 99% on R/A; aa5 07:27 Body Mass Index 21.73 (52.16 kg, 154.94 cm) tw2 MDM: 07:34 Patient medically screened. aam 10:08 Differential diagnosis: Nonspecific abd pain, viral gastroenteritis, gastroenteritis. ama Differential diagnosis: contusion, fracture, sprain, strain. Data reviewed: vital signs, nurses notes, lab test result(s), EKG, radiologic studies, CT scan, plain films. Data interpreted: site monitor: rate is 67 beats/min, rhythm is regular, Pulse oximetry: on room air is 100 %. Test interpretation: by ED physician or midlevel provider: ECG, plain radiologic studies. Counseling: I had a detailed discussion with the patient and/or guardian regarding: the historical points, exam findings, and any diagnostic results supporting the discharge/admit diagnosis, lab results, radiology results, the need for outpatient follow up, for definitive care, a vp securities, an data examination clerk. 12/01 07:41 Order name: Basic Metabolic Panel; Complete Time: 09:37 [facility] 12/01 07:41 Order name: CBC with Diff; Complete Time: :37 ama 12/01 07:41 Order name: LFT's; Complete Time: 09:37 ama 12/01 07:41 Order name: Magnesium; Complete Time: 09:37 ama 12/01 07:41 Order name: NT PRO-BNP; Complete Time: 09:37 ama 12/01 07:41 Order name: PT-INR; Complete Time: 09:37 [facility] 12/01 07:41 Order name: Troponin HS; Complete Time: 09:37 [facility] 12/01 07:41 Order name: XRAY Chest (1 view); Complete Time: 09:37 [facility] 12/01 07:41 Order name: Lipase; Complete Time: 09:37 [facility] 12/01 07:41 Order name: SARS-COV-2 RT PCR (Document "Date of Onset" if Symptomatic) 12/01 07:41 Order name: Blood Culture Adult (2) 12/01 07:41 Order name: Lactate; Complete Time: 09:37 [facility] 12/01 09:50 Order name: Urine Dipstick-Ancillary; Complete Time: 09:52 EDMS 12/01 07:41 Order name: EKG; Complete Time: 07:42 [facility] 12/01 07:41 Order name: Cardiac monitoring; Complete Time: 08:21 [facility] 12/01 07:41 Order name: EKG - Nurse/Tech; Complete Time: 08:21 [facility] 12/01 07:41 Order name: IV Saline Lock; Complete Time: 08:33 [facility] 12/01 07:41 Order name: Labs collected and sent; Complete Time: 08:33 [facility] 12/01 07:41 Order name: O2 Per Protocol; Complete Time: 08:21 [facility] 12/01 07:41 Order name: O2 Sat Monitoring; Complete Time: 08:21 [facility] 12/01 07:41 Order name: Urine Dipstick-Ancillary (obtain specimen); Complete Time: 10:58 [facility] 12/01 08:51 Order name: CT Head C Spine; Complete Time: 09:37 [facility] 12/01 08:51 Order name: CT Chest For PE Angio; Complete Time: 09:37 [facility] 12/01 08:56 Order name: CT Abd/Pelvis - IV Contrast Only 12/01 09:00 Order name: Abdomen ; Complete Time: 09:52 EDMS 12/01 10:04 Order name: PO challenge: juice; Complete Time: 10:29 [facility] EC:05 Rate is 61 beats/min. Rhythm is regular. QRS [place] is Normal. GA interval is normal. QRS ama interval is normal. QT interval is normal. No Q waves. T waves are Normal. No ST changes noted. Clinical impression: Normal ECG and No evidence of ischemia. Interpreted by me. Reviewed by me. Administered Medications: 08:48 Not Given (Patient Refused): Zofran (Ondansetron) 4 mg IVP once; over 2 minutes aa5 08:48 Drug: Rocephin (cefTRIAXone) 1 grams Route: IV; Rate: per protocol; Site: left aa5 antecubital; 09:00 Follow up: Response: No adverse reaction aa5 08:48 Drug: NS 0.9% 1000 ml Route: IV; Rate: 1 bolus; Site: left antecubital; aa5 09:45 Follow up: IV Status: Completed infusion; IV Intake: 1000ml aa5 10:24 Not Given (Physician Discretion): NS 0.9% 1000 ml IV at 125 ml/hr continuous aa5 Disposition Summary: 12/01/21 10:07 Discharge Ordered Location: Home ama Problem: new ama Symptoms: have improved ama Condition: Stable ama Diagnosis - Fall on same level, unspecified ama - UTI/ Urinary tract infection, site not specified ama - Dysphagia ama Followup: ama - With: Jose Antonio Falcon MD - When: 2 - 3 days - Reason: Recheck today's complaints, Continuance of care, Re-evaluation by your physician Followup: ama - With: Vania Nicholas MD - When: 2 - 3 days - Reason: Recheck today's complaints, Re-evaluation by your physician Discharge Instructions: - Discharge Summary Sheet ama - Dysphagia ama - Dysuria ama - Urinary Tract Infection, Adult ama - Urinary Tract Infection, Adult, Cfor-rm-Mole ama - Dysphagia Eating Plan, Bite Size Food ama Forms: - Medication Reconciliation Form ama - Thank You Letter ama - Antibiotic Education ama - Prescription Opioid Use ama Prescriptions: - Cipro 250 mg Oral Tablet - take 1 tablet by ORAL route every 12 hours; 14 tablet; Refills: 0, Product ama Selection Permitted - Zofran 4 mg Oral Tablet - take 1 tablet by ORAL route every 12 hours As needed; 20 tablet; Refills: 0, ama Product Selection Permitted Signatures: Dispatcher [employer] EDNahum Sandra MD MD cha Calderon, Audri, RN RN aa5 Barb Grady RN RN tw2 Corrections: (The following items were deleted from the chart) 09:03 07:58 Head C Spine CAP W [id number] ordered. EDMS EDMS
--- NOTE | 2021-12-02 12:35 | EKG ---
Test Date: 2021-12-01 Test Time: 08:13:12 Senior Drupal Developer: JUNIOR MEASUREMENT RESULTS: Intervals: Rate: 61 NH: 150 QRSD: 84 QT: 404 QTc: 406 [place]: P: 60 NH: 150 QRS: 67 T: 85 INTERPRETIVE STATEMENTS: Normal sinus rhythm Normal ECG Compared to ECG 05/05/2021 13:51:12 Sinus arrhythmia no longer present Short NH interval no longer present ST (T wave) deviation no longer present Electronically Signed On 12-02-21 12:32:37 CDT by Miki Amanda
[2021-12-02 13:34] VITALS: TEMP 99
[2021-12-02 13:41] VITALS: BP 119/70; O2SAT 100
== END 2021-12-01 11:28 | disposition home or self-care (01) ==
LOC: ER 07:19
DX: U07.1 COVID-19 (principal); N39.0 Urinary tract infection, site not specified; R13.10 Dysphagia, unspecified; W18.30XA Fall on same level, unspecified, initial encounter
CPT/HCPCS: 96361; 93005; 87040 ×2; 85025; 80048; 36415; 83735; 85610; 80076; 83605; 81003; 84484; 83690; 83880; 70450; 72125; 71275; 74177; 71045; 96374; 99284; U0003; Q9967; J7030; J2405

== ENCOUNTER 2023-03-01 10:49 | Emergency (ER) | payer OTHER, MEDICARE ==
--- OUTSIDE RECORDS SUMMARY | 2023-03-01 10:54 | XMS REPORT | Continuity of Care Document ---
Author Name Unknown Address [address] [facility] [place] [address] [facility] thconnect Address [address] [facility] [address] [place] [address] Care Team Providers Care Marketing Services Rep Name Role Phone Marcellus Falcon Primary Care Physician [phone] Roman Laurent Attending Clinician Unavailable TRANG MURRIETA Attending Clinician Unavailable KADY RIVERA Attending Clinician Unavailable RHETT TSANG Attending Clinician Unavailable Jannet Attending Clinician Unavaila DAMNO Aquino Attending Clinician Unavailable Mallika Paredes Attending Clinician [phone] Mariza Cameron Attending Clinician [phone] PASTOR BLANCO Attending Clinician Unavailable Radiology Attending Clinician Unavailable RADIOLOGY Attending Clinician Unavailable Doctor Unassigned, Grawn Attending Clinician U navailable LINETTE PATEL III Attending Clinician UnavailRmoan Lee Admitting Clinician Unavailable Jannet Admitting Clinician Unavaila MARCELLUS Ennis Admitting Clinician Unavailable LINETTE PATEL III Admitting Clinician Unavaila delores Payers Payer Name Policy Type Policy Number Effective Date Expirati on Date Source MEDICARE PART A AND B [id number] 2011 00:00:00 AARP-SECONDARY ONLY [id number] 00:00:00 MED[place]: [facility] SOLUTIONS [id number] 2011-11-18 00:00:00 AAR HEALTHCARE OPTIONS (MEDICARE SUPPLEMENT) [id number] 2022-03-19 00:00:00 AAR MEDICARE SUPPLEMENT [id number] 2012-01-18 00:00:00 MEDICARE PART A \T\ B [id number] 2011-11-18 00:00:00 [facility] MEDICARE SUPPLEMENT [id number] 2012-01-18 00:00:00 Problems Condition Name Condition Details Condition Category Status Onset Date Resolution Date Last Treatment Date Treating Clinician Comments Source Closed displaced intertroch anteric fracture of right femur Closed displaced intertroch anteric fracture of right femur Disease Active 07-20 00:00: 00 [facility] Allergies, Adverse Reactions, Alerts Allergy Name Allergy Type Status Severity Reaction(s) Onset Date Inactive Date Treating Clinician Comments Source Penicill ins DA Active SV THROAT SWELLS 2022-03 00:00: 00 [facility] codeine DA Active SV THROAT SWELLS 2022-03 00:00: 00 [facility] Penicill ins DA Active SV THROAT SWELLS 2022-03 00:00: 00 [facility] codeine DA Active SV THROAT SWELLS 2022-03 00:00: 00 [facility] Penicill in G Allergy to substanc e Active 08-10 00:00: 00 Other reaction( s): Unknown [facility] CODEINE DRUG INGREDI Active Unknown-Cmnt 2018-03 00:00: 00 [facility] PENICILL IN DRUG INGREDI Active Unknown-Cmnt 2018-03 00:00: 00 [facility] CODEINE DRUG INGREDI Active Low Rash 05-12 00:00: 00 [facility] PENICILL INS Drug Class Active High Sob 05-12 00:00: 00 [facility] [place] [facility] CODEINE DRUG INGREDI Active Low Rash 05-12 00:00: 00 [facility] [place] [facility] PENICILL INS Drug Class Active High Sob 05-12 00:00: 00 [facility] [place] [facility] CODEINE DRUG INGREDI Active Low Rash 05-12 00:00: 00 [facility] [place] [facility] PENICILL INS Drug Class Active High Sob 05-12 00:00: 00 [facility] [place] [facility] CODEINE DRUG INGREDI Active Low Rash 05-12 00:00: 00 [facility] [place] [facility] PENICILL INS Drug Class Active High Sob 05-12 00:00: 00 [facility] [place] [facility] CODEINE DRUG INGREDI Active Low Rash 05-12 00:00: 00 [facility] [place] [facility] PENICILL INS Drug Class Active High Sob 05-12 00:00: 00 [facility] [place] [facility] PENICILL INS Drug Class Active High Sob 05-12 00:00: 00 [facility] [place] [facility] CODEINE DRUG INGREDI Active Low Rash 05-12 00:00: 00 [facility] [place] [facility] PENICILL INS Drug Class Active High Sob 05-12 00:00: 00 [facility] [place] [facility] CODEINE DRUG INGREDI Active Low Rash 05-12 00:00: 00 [facility] [place] [facility] PENICILL INS Drug Class Active High Sob 05-12 00:00: 00 [facility] [place] CODEINE DRUG INGREDI Active Low Rash 05-12 00:00: 00 [facility] [place] [facility] PENICILL INS Drug Class Active High Sob 05-12 00:00: 00 [facility] [place] CODEINE DRUG INGREDI Active Low Rash 05-12 00:00: 00 [facility] [place] CODEINE DRUG INGREDI Active Low Rash 05-12 00:00: 00 [facility] [place] [facility] PENICILL INS Drug Class Active High Sob 05-12 00:00: 00 [facility] [place] CODEINE DRUG INGREDI Active Low Rash 05-12 00:00: 00 [facility] [place] PENICILL INS Drug Class Active High Sob 0 05-12 00:00: 00 [facility] [place] CODEINE DRUG INGREDI Active Low Rash 05-12 00:00: 00 [facility] [place] PENICILL INS Drug Class Active High Sob 0 05-12 00:00: 00 [facility] [place] CODEINE DRUG INGREDI Active Low Rash 05-12 00:00: 00 [facility] [place] PENICILL INS Drug Class Active High Sob 05-12 00:00: 00 [facility] [place] CODEINE DRUG INGREDI Active Low Rash 05-12 00:00: 00 [facility] [place] PENICILL INS Drug Class Active High Sob 05-12 00:00: 00 [facility] [place] CODEINE DRUG INGREDI Active Low Rash 05-12 00:00: 00 [facility] [place] PENICILL INS Drug Class Active High Sob 05-12 00:00: 00 [facility] [place] PENICILL INS Drug Class Active High Sob 05-12 00:00: 00 [facility] [place] CODEINE DRUG INGREDI Active Low Rash 05-12 00:00: 00 [facility] [place] PENICILL INS Drug Class Active High Sob 05-12 00:00: 00 [facility] [place] CODEINE DRUG INGREDI Active Low Rash 05-12 00:00: 00 [facility] [place] PENICILL INS Drug Class Active High Sob 05-12 00:00: 00 [facility] [place] CODEINE DRUG INGREDI Active Low Rash 05-12 00:00: 00 [facility] [place] PENICILL INS Drug Class Active High Sob 05-12 00:00: 00 [facility] [place] CODEINE DRUG INGREDI Active Low Rash 05-12 00:00: 00 [facility] [place] CODEINE DRUG INGREDI Active Low Rash 05-12 00:00: 00 [facility] [place] PENICILL INS Drug Class Active High Sob 05-12 00:00: 00 [facility] [place] CODEINE DRUG INGREDI Active Low Rash 05-12 00:00: 00 [facility] [place] PENICILL INS Drug Class Active High Sob 05-12 00:00: 00 [facility] [place] CODEINE DRUG INGREDI Active Low Rash 05-12 00:00: 00 [facility] [place] PENICILL INS Drug Class Active High Sob 05-12 00:00: 00 [facility] [place] CODEINE DRUG INGREDI Active Low Rash 05-12 00:00: 00 [facility] [place] PENICILL INS Drug Class Active High Sob 05-12 00:00: 00 [facility] [place] CODEINE DRUG INGREDI Active Low Rash 05-12 00:00: 00 [facility] [place] PENICILL INS Drug Class Active High Sob 0 05-12 00:00: 00 [facility] [place] CODEINE DRUG INGREDI Active Low Rash 05-12 00:00: 00 MD [place] PENICILL INS Drug Class Active High Sob 0 05-12 00:00: 00 [facility] [place] PENICILL INS Drug Class Active High Sob 05-12 00:00: 00 [facility] [place] CODEINE DRUG INGREDI Active Low Rash 05-12 00:00: 00 MD [place] PENICILL INS Drug Class Active High Sob 05-12 00:00: 00 [facility] [place] [facility] CODEINE DRUG INGREDI Active Low Rash 05-12 00:00: 00 MD [place] PENICILL INS Drug Class Active High Sob 05-12 00:00: 00 [facility] [place] CODEINE DRUG INGREDI Active Low Rash 05-12 00:00: 00 MD [place] PENICILL INS Drug Class Active High Sob 05-12 00:00: 00 [facility] [place] CODEINE DRUG INGREDI Active Low Rash 05-12 00:00: 00 [facility] [place] CODEINE DRUG INGREDI Active Low Rash 05-12 00:00: 00 [facility] [place] PENICILL INS Drug Class Active High Sob 05-12 00:00: 00 [facility] [place] CODEINE DRUG INGREDI Active Low Rash 05-12 00:00: 00 [facility] [place] PENICILL INS Drug Class Active High Sob 05-12 00:00: 00 [facility] [place] CODEINE DRUG INGREDI Active Low Rash 05-12 00:00: 00 MD [place] PENICILL INS Drug Class Active High Sob 05-12 00:00: 00 [facility] [place] CODEINE DRUG INGREDI Active Low Rash 05-12 00:00: 00 MD [place] PENICILL INS Drug Class Active High Sob 05-12 00:00: 00 [facility] [place] CODEINE DRUG INGREDI Active Low Rash 05-12 00:00: 00 [facility] [place] PENICILL INS Drug Class Active High Sob 05-12 00:00: 00 [facility] [place] CODEINE DRUG INGREDI Active Low Rash 05-12 00:00: 00 MD [place] PENICILL INS Drug Class Active High Sob 05-12 00:00: 00 [facility] [place] PENICILL INS Drug Class Active High Sob 05-12 00:00: 00 [facility] [place] CODEINE DRUG INGREDI Active Low Rash 05-12 00:00: 00 MD [place] PENICILL INS Drug Class Active High Sob 05-12 00:00: 00 [facility] [place] CODEINE DRUG INGREDI Active Low Rash 05-12 00:00: 00 [facility] [place] PENICILL INS Drug Class Active High Sob 05-12 00:00: 00 [facility] [place] CODEINE DRUG INGREDI Active Low Rash 05-12 00:00: 00 MD [place] PENICILL INS Drug Class Active High Sob 05-12 00:00: 00 [facility] [place] CODEINE DRUG INGREDI Active Low Rash 05-12 00:00: 00 [facility] [place] CODEINE DRUG INGREDI Active Low Rash 05-12 00:00: 00 [facility] [place] PENICILL INS Drug Class Active High Sob 05-12 00:00: 00 [facility] [place] CODEINE DRUG INGREDI Active Low Rash 05-12 00:00: 00 [facility] [place] PENICILL INS Drug Class Active High Sob 05-12 00:00: 00 [facility] [place] CODEINE DRUG INGREDI Active Low Rash 05-12 00:00: 00 MD [place] PENICILL INS Drug Class Active High Sob 05-12 00:00: 00 [facility] [place] CODEINE DRUG INGREDI Active Low Rash 05-12 00:00: 00 [facility] [place] PENICILL INS Drug Class Active High Sob 05-12 00:00: 00 MD [place] PENICILL INS Drug Class Active High Sob 05-12 00:00: 00 [facility] [place] CODEINE DRUG INGREDI Active Low Rash 05-12 00:00: 00 MD [place] PENICILL INS Drug Class Active High Sob 05-12 00:00: 00 MD [place] CODEINE DRUG INGREDI Active Low Rash 05-12 00:00: 00 MD [place] PENICILL INS Drug Class Active High Sob 05-12 00:00: 00 MD [place] CODEINE DRUG INGREDI Active Low Rash 05-12 00:00: 00 MD [place] CODEINE DRUG INGREDI Active Low Rash 05-12 00:00: 00 MD [place] PENICILL INS Drug Class Active High Sob 05-12 00:00: 00 [facility] [place] CODEINE DRUG INGREDI Active Low Rash 05-12 00:00: 00 MD [place] PENICILL INS Drug Class Active High Sob 05-12 00:00: 00 [facility] [place] CODEINE DRUG INGREDI Active Low Rash 05-12 00:00: 00 MD [place] PENICILL INS Drug Class Active High Sob 05-12 00:00: 00 [facility] [place] CODEINE DRUG INGREDI Active Low Rash 05-12 00:00: 00 MD [place] PENICILL INS Drug Class Active High Sob 05-12 00:00: 00 [facility] [place] CODEINE DRUG INGREDI Active Low Rash 05-12 00:00: 00 [facility] [place] PENICILL INS Drug Class Active High Sob 05-12 00:00: 00 [facility] [place] CODEINE DRUG INGREDI Active Low Rash 05-12 00:00: 00 MD [place] PENICILL INS Drug Class Active High Sob 05-12 00:00: 00 MD [place] PENICILL INS Drug Class Active High Sob 05-12 00:00: 00 [facility] [place] CODEINE DRUG INGREDI Active Low Rash 05-12 00:00: 00 MD [place] PENICILL INS Drug Class Active High Sob 05-12 00:00: 00 [facility] [place] CODEINE DRUG INGREDI Active Low Rash 05-12 00:00: 00 [facility] [place] PENICILL INS Drug Class Active High Sob 05-12 00:00: 00 [facility] [place] CODEINE DRUG INGREDI Active Low Rash 05-12 00:00: 00 MD [place] PENICILL INS Drug Class Active High Sob 05-12 00:00: 00 [facility] [place] CODEINE DRUG INGREDI Active Low Rash 05-12 00:00: 00 [facility] [place] CODEINE DRUG INGREDI Active Low Rash 05-12 00:00: 00 [facility] [place] PENICILL INS Drug Class Active High Sob 05-12 00:00: 00 [facility] [place] CODEINE DRUG INGREDI Active Low Rash 05-12 00:00: 00 [facility] [place] PENICILL INS Drug Class Active High Sob 05-12 00:00: 00 [facility] [place] CODEINE DRUG INGREDI Active Low Rash 05-12 00:00: 00 [facility] [place] PENICILL INS Drug Class Active High Sob 05-12 00:00: 00 [facility] [place] CODEINE DRUG INGREDI Active Low Rash 05-12 00:00: 00 MD [place] PENICILL INS Drug Class Active High Sob 05-12 00:00: 00 [facility] [place] CODEINE DRUG INGREDI Active Low Rash 05-12 00:00: 00 MD [place] PENICILL INS Drug Class Active High Sob 05-12 00:00: 00 MD [place] PENICILL INS Drug Class Active High Sob 05-12 00:00: 00 [facility] [place] CODEINE DRUG INGREDI Active Low Rash 05-12 00:00: 00 MD [place] [facility] PENICILL INS Drug Class Active High Sob 05-12 00:00: 00 MD [place] [facility] CODEINE DRUG INGREDI Active Low Rash 05-12 00:00: 00 MD [place] [facility] PENICILL INS Drug Class Active High Sob 05-12 00:00: 00 MD [place] CODEINE DRUG INGREDI Active Low Rash 05-12 00:00: 00 MD [place] PENICILL INS Drug Class Active High Sob 05-12 00:00: 00 [facility] [place] CODEINE DRUG INGREDI Active Low Rash 05-12 00:00: 00 [facility] [place] CODEINE DRUG INGREDI Active Low Rash 05-12 00:00: 00 MD [place] PENICILL INS Drug Class Active High Sob 05-12 00:00: 00 MD [place] CODEINE DRUG INGREDI Active Low Rash 05-12 00:00: 00 MD [place] PENICILL INS Drug Class Active High Sob 05-12 00:00: 00 MD [place] CODEINE DRUG INGREDI Active Low Rash 05-12 00:00: 00 MD [place] [facility] PENICILL INS Drug Class Active High Sob 05-12 00:00: 00 [facility] CODEINE DRUG INGREDI Active Low Rash 05-12 00:00: 00 MD [place] PENICILL INS Drug Class Active High Sob 05-12 00:00: 00 MD [place] CODEINE DRUG INGREDI Active Low Rash 05-12 00:00: 00 [facility] [place] PENICILL INS Drug Class Active High Sob 05-12 00:00: 00 MD [place] CODEINE DRUG INGREDI Active Low Rash 05-12 00:00: 00 MD [place] PENICILL INS Drug Class Active High Sob 05-12 00:00: 00 MD [place] CODEINE DRUG INGREDI Active Low Rash 05-12 00:00: 00 MD [place] PENICILL INS Drug Class Active High Sob 05-12 00:00: 00 MD [place] CODEINE DRUG INGREDI Active Low Rash 05-12 00:00: 00 MD [place] PENICILL INS Drug Class Active High Sob 05-12 00:00: 00 MD [place] CODEINE DRUG INGREDI Active Low Rash 05-12 00:00: 00 MD [place] PENICILL INS Drug Class Active High Sob 05-12 00:00: 00 MD [place] CODEINE DRUG INGREDI Active Low Rash 05-12 00:00: 00 MD [place] PENICILL INS Drug Class Active High Sob 05-12 00:00: 00 [facility] [place] CODEINE DRUG INGREDI Active Low Rash 05-12 00:00: 00 [facility] [place] PENICILL INS Drug Class Active High Sob 05-12 00:00: 00 MD [place] CODEINE DRUG INGREDI Active Low Rash 05-12 00:00: 00 MD [place] PENICILL INS Drug Class Active High Sob 0 05-12 00:00: 00 MD [place] CODEINE DRUG INGREDI Active Low Rash 0 05-12 00:00: 00 MD [place] PENICILL INS Drug Class Active High Sob 05-12 00:00: 00 MD [place] CODEINE DRUG INGREDI Active Low Rash 05-12 00:00: 00 [facility] [place] PENICILL INS Drug Class Active High Sob 05-12 00:00: 00 MD [place] CODEINE DRUG INGREDI Active Low Rash 05-12 00:00: 00 MD [place] PENICILL INS Drug Class Active High Sob 05-12 00:00: 00 MD [place] CODEINE DRUG INGREDI Active Low Rash 05-12 00:00: 00 MD [place] PENICILL INS Drug Class Active High Sob 05-12 00:00: 00 MD [place] CODEINE DRUG INGREDI Active Low Rash 05-12 00:00: 00 MD [place] PENICILL INS Drug Class Active High Sob 05-12 00:00: 00 MD [place] CODEINE DRUG INGREDI Active Low Rash 05-12 00:00: 00 MD [place] PENICILL INS Drug Class Active High Sob 05-12 00:00: 00 MD [place] CODEINE DRUG INGREDI Active Low Rash 05-12 00:00: 00 MD [place] PENICILL INS Drug Class Active High Sob 05-12 00:00: 00 MD [place] CODEINE DRUG INGREDI Active Low Rash 05-12 00:00: 00 [facility] [place] PENICILL INS Drug Class Active High Sob 05-12 00:00: 00 MD [place] CODEINE DRUG INGREDI Active Low Rash 05-12 00:00: 00 MD [place] PENICILL INS Drug Class Active High Sob 05-12 00:00: 00 MD [place] CODEINE DRUG INGREDI Active Low Rash 0 05-12 00:00: 00 [facility] [place] PENICILL INS Drug Class Active High Sob 05-12 00:00: 00 MD [place] CODEINE DRUG INGREDI Active Low Rash 05-12 00:00: 00 MD [place] PENICILL INS Drug Class Active High Sob 05-12 00:00: 00 MD [place] CODEINE DRUG INGREDI Active Low Rash 05-12 00:00: 00 MD [place] PENICILL INS Drug Class Active High Sob 05-12 00:00: 00 MD [place] CODEINE DRUG INGREDI Active Low Rash 05-12 00:00: 00 MD [place] Penicill ins Allergy to substanc e Active Shortness of breath 05-12 00:00: 00 Other reaction( s): Unknown, Unknown - See commentsU rticaria, hives, rash, asthma/re spiratory distress [facility] Codeine Allergy to substanc e Active Rash 05-12 00:00: 00 Other reaction( s): Unknown, Unknown - See commentsU rticaria, hives Other reaction( s): Unknown [facility] PENICILL INS Drug Class Active High Sob 05-12 00:00: 00 [facility] [place] CODEINE DRUG INGREDI Active Low Rash 05-12 00:00: 00 MD [place] PENICILL INS Drug Class Active High Sob 05-12 00:00: 00 [facility] [place] [facility] Social History Social Habit Start Date Stop Date Quantity Comments Source Exposure to SARS-CoV-2 (event) 2021-11-28 00:00:00 2021-12-08 12:22:00 Not sure [facility] Sex Assigned At 1945 00:00:00 1945 00:00:00 [facility] Smoking Status Start Date Stop Date Source Tobacco smoking consumption unknown [facility] Encounters Start Date/Time End Date/Time Encounter Type Admission Type Attending [facility] Care Facility Care Department Encounter ID Source 2023-02-27 05:12:00 2023-02-28 11:53:00 Inpatient Roman Rowell [facility] [id number] [facility] 2023-02-27 16:03:00 2023-02-27 16:03:00 Outpatient Roman Laurent [facility] [id number] [facility] 2023-02-23 13:49:12 2023-02-23 15:23:51 Outpatient TRANG DSOUZA MDA [facility] [id number] [facility] 13:40:19 2023-02-23 13:47:02 Outpatient TRANG DSOUZA MDA MDA [id number] [facility] [place] [facility] 2023-01-30 13:07:07 2023-01-30 23:59:00 Outpatient TRANG DSOUZA MDA MDA [id number] [facility] liz 2023-01-30 15:12:24 2023-01-30 17:01:40 Outpatient KADY CAMPBELL MDA MDA [id number] [facility] liz 2023-01-30 13:51:54 2023-01-30 13:51:54 Outpatient TRANG DSOUZA MDA MDA [id number] [facility] 2023-01-30 11:35:26 2023-01-30 11:35:26 Outpatient PRADEEP CRYSTALNAV RHETT MDA MDA [id number] [facility] 2022-11-22 00:00:00 2022-11-22 00:00:00 Outpatient FOG_Burke_R obFlorentino AOSM AOSM [id number] [facility] 2022-11-22 00:00:00 2022-11-22 00:00:00 Outpatient FOG_Burke_R obert_ AOSM AOSM [id number] [facility] 2022-11-22 00:00:00 2022-11-22 00:00:00 Outpatient FOG_Burke_R obFlorentino AOSM AOSM [id number] [facility] 2022-11-22 00:00:00 2022-11-22 00:00:00 Outpatient FOG_Burke_R obert_ AOSM AOSM [id number] [facility] 2022-11-12 00:00:00 2022-11-12 00:00:00 Outpatient FOG_Burke_R obertIRINA AOSM AOSM [id number] [facility] 2022-11-12 00:00:00 2022-11-12 00:00:00 Outpatient FOG_Burke_R obdaniel_ AOSM AOSM [id number] [facility] 2022-11-12 00:00:00 2022-11-12 00:00:00 Outpatient FOG_Burke_R obertIRINA AOSM AOSM [id number] [facility] 2022-10-27 14:07:47 2022-10-27 15:06:03 Outpatient TRANG DSOUZA MDA, MDA [id number] [facility] 2022-10-27 13:54:38 2022-10-27 14:05:50 Outpatient TRANG DSOUZA MDA, MDA [id number] [facility] [place] [facility] 2022-10-20 00:00:00 2022-10-20 00:00:00 Outpatient FOG_Burke_R obFlorentino AOSM AOSM [id number] [facility] 2022-10-20 00:00:00 2022-10-20 00:00:00 Outpatient FOG_BurkeWeroR Sreedhar AOSM AOSM [id number] [facility] 2022-09-29 14:20:13 2022-09-29 15:33:59 Outpatient TRANG DSOUZA MDA, MDA [id number] [facility] [facility] 2022-09-29 14:14:41 2022-09-29 14:19:03 Outpatient TRANG DSOUZA MDA, MDA [id number] [facility] [place] [facility] 2022-09-11 00:00:00 2022-09-11 00:00:00 Outpatient FOG_Burke_R obFlorentino AOSM AOSM [id number] [facility] 2022-09-11 00:00:00 2022-09-11 00:00:00 Outpatient FOG_Burke_R obFlorentino AOSM AOSM [id number] [facility] 2022-09-07 00:00:00 2022-09-07 00:00:00 Outpatient FOG_Burke_R obert_ AOSM AO [id number] [facility] 2022-09-07 00:00:00 2022-09-07 00:00:00 Outpatient FOG_Burke_R obert_ AO AO [id number] [facility] 2022-09-01 14:24:33 2022-09-01 15:34:12 Outpatient PRADEEP MURRIETA TRANG MDA MDA [id number] [facility] [facility] 2022-09-01 14:12:38 2022-09-01 14:22:25 Outpatient PRADEEP LIT TRANG MDA MDA [id number] [facility] [place] 2022-08-04 16:48:23 2022-08-04 16:48:23 Outpatient PRADEEP QIUBREEZY TRANG MDA MDA [id number] [facility] [place] 2022-08-04 16:47:34 2022-08-04 16:47:34 Outpatient PRADEEP UYENBREEZY TRANG MDA MDA [id number] [facility] [place] 2022-07-07 13:54:15 2022-07-07 15:20:02 Outpatient PRADEEP UYENBREEZY TRANG MDA MDA [id number] [facility] [place] 2022-07-07 13:41:19 2022-07-07 13:59:09 Outpatient PRADEEP MURRIETA TRANG MDA MDA [id number] [facility] [place] 2022-06-09 14:49:15 2022-06-09 16:09:28 Outpatient PRADEEP QIUBREEZY TRANG MDA MDA [id number] [facility] [place] 2022-06-09 14:34:41 2022-06-09 14:47:45 Outpatient PRADEEP MURRIETA TRANG MDA MDA [id number] [facility] [place] 2022-05-12 10:16:00 2022-05-12 13:09:44 Outpatient PRADEEP MURRIETA TRANG MDA MDA [id number] [facility] [place] 2022-05-12 10:03:15 2022-05-12 10:20:01 Outpatient PRADEEP MURRIETA TRANG MDA MDA [id number] [facility] [place] [facility] 2022-04-14 12:31:01 2022-04-14 13:35:15 Outpatient PRADEEP MURRIETA TRANG MDA MDA [id number] [facility] [place] 2022-04-14 12:21:47 2022-04-14 12:28:30 Outpatient FRANCINE DSOUZAYL MDA MDA [id number] [facility] 2022-03-17 10:35:25 2022-03-17 11:22:32 Outpatient [facility]ADEEP [facility]URRIETA [id number] [facility]17 10:24:24 2022-03-17 10:32:56 Outpatient PRADEEP MURRIETA TRANG MDA MDA [id number] [facility] [place] 2022-02-17 14:59:00 2022-02-17 16:09:32 Outpatient FRANCINE DSOUZAYL MDA MDA [id number] [facility] 2022-02-17 14:49:30 2022-02-17 14:50:32 Outpatient PRADEEP MURRIETA TRANG MDA MDA [id number] [facility] [place] [facility] 2022-01-20 12:52:03 2022-01-20 13:56:13 Outpatient FRANCINE DSOUZAYL MDA MDA [id number] [facility] [place] [facility] 2022-01-20 12:39:34 2022-01-20 12:44:29 Outpatient FRANCINE DSOUZAYL MDA MDA [id number] [facility] [place] [facility] 2022-01-09 14:10:00 2022-01-09 23:59:00 Outpatient PRADEEP MURRIETA TRANG MDA MDA [id number] [facility] [facility] 2022-01-09 12:29:33 2022-01-09 13:22:51 Outpatient PITER CROWLEYTY MDA MDA [id number] [facility] [place] [facility] 2022-01-09 13:22:37 2022-01-09 13:22:37 Outpatient PRADEEP MURRIETA TRANG MDA MDA [id number] [facility] [place] [facility] 2022-01-09 11:44:29 2022-01-09 11:44:29 Outpatient RHETT CROWLEY MDA MDA [id number] [facility] [place] [facility] 2021-12-23 14:41:16 2021-12-23 16:31:33 Outpatient TRANG DSOUZA MDA MDA [id number] [facility] 2021-12-23 14:27:55 2021-12-23 14:29:19 Outpatient TRANG DSOUZA MDA MDA [id number] [facility] 2021-12-12 15:15:41 2021-12-12 23:59:00 Outpatient TRANG DSOUZA MDA MDA [id number] [facility] [place] [facility] 2021-12-12 13:21:33 2021-12-12 16:07:59 Outpatient DAMON KOENIG MDA MDA [id number] [facility] [place] 2021-12-08 12:30:00 2021-12-08 13:01:59 Outpatient [facility] [id number] [facility] 2021-12-08 12:30:00 2021-12-08 13:01:59 Office Visit Mallika Newsome [facility] [address] [id number] [facility] 2021-09-01 13:45:00 2021-09-01 14:40:58 Office Visit Mariza Childers [facility] [address] [id number] [facility] 2021-07-21 14:15:00 2021-07-21 15:11:21 Office Visit Mallika Newsome [facility] [address] [id number] [facility] 2021-06-23 14:00:00 2021-06-23 14:23:08 Office Visit Mariza Childers [facility] [address] [id number] [facility] 2020-12-20 14:32:34 2020-12-20 14:32:34 Outpatient PRADEEP LLOYD DESAI [id number] [facility] 2020-12-20 13:27:07 2020-12-20 13:27:07 Outpatient PASTOR NUNN LLOYD DESAI [id number] [facility] 2020-12-20 10:02:16 2020-12-20 11:22:07 Outpatient PRADEEP TSANG RHETT LLOYD DESAI [id number] [facility] 2019-04-01 10:33:00 2019-04-01 23:59:00 Hospital Encounter Radiology [facility] [id number] 2019-04-01 10:33:11 2019-04-01 10:32:00 Outpatient R RADIOLOGY [facility] [id number] [facility] 2019-04-01 10:30:00 2019-04-01 10:32:00 Hospital Encounter Radiology [facility] [id number] 2019-04-01 00:00:00 2019-04-01 00:00:00 Orders Only Doctor Unassigned, [place] 1.2.840.114 350.1.13.10 4.2.7.2.686 [id number] 2019-02-20 12:58:20 2019-02-20 16:08:00 Emergency X JORGE III, [facility] ERT [id number] [facility] Results Test Description Test Time Test Comments Results Resul t Comments Source - XR KNEE 1 OR 2 V LT 2023-02-28 09:47:00 [facility] 1945 Sex: F Patient Name: LENIN DIAS Unit No: [id number] EXAMS: CPT CODE: [id number] XR KNEE 1 OR 2 V LT 91486 IMAGES PROVIDED: 2 FINDINGS: Postoperative changes from right total knee arthoplasty demonstrated without evidence of immediate complication. No acute fracture is visualized. IMPRESSION: Postoperative exam as above. at 0947 Reported and signed by: Morgan Gallagher M.D. CC: Roman Laurent MD Technologist: CARINE SEPULVEDA ARRT; HANNAH ARMSA (ARRT) Transcribed D/ (0958) [facility] NAME: LENIN DIAS [address] [facility] PHYS: Roman Fonseca MD : 1945 AGE: 77 SEX: F [place] [address] LOC: Y.301 B PHONE #: [phone] EXAM DATE: 02/27/2023 STATUS: ADM IN FAX #: [phone] RAD #: D/C DT PAGE 1 Signed Report Patient Name: LENIN DIAS Unit No: [id number] EXAMS: CPT CODE: [id number] XR KNEE 1 OR 2 V LT 20930 (Continued) Orig Print D/T: S: 02/28/2023 (0951) [facility] NAME[facility] LENIN DIAS [address] [facility] PHYS: Roman Fonseca MD : 1945 AGE: 77 SEX: F [place], [place] [address] LOC: Y.301 B PHONE #: [phone] EXAM DATE: 02/27/2023 STATUS: ADM IN FAX #: [phone] RAD #: D/C DT PAGE 2 Signed Report SPECIMEN COMMENT: POD #[id number] 06:11:00* Test Item Value Reference Range Interpretation Comme nts HEMOGLOBIN (test code = HGB) 10.3 g/dL 12-16 L HEMATOCRIT (test code = HCT) 32.1 % 37-47 L SPECIMEN COMMENT: POD #1 Notes Date/Time Note Provider Source 2023-02-28 10:13:00 [id number] 13T10:13:00 [facility] ([facility])Clinical NoteREPORT#:[id number] REPORT STATUS: SignedREPORT INITIALIZATION DATE:02/28/23 TIME: 1013 PATIENT: LENIN DIAS UNIT #: [id number]#: [id number] [facility] [birth year] [facility]GE: 77 SEX: F ATTEND: Roman Laurent MDA AUTHOR: Willem Figueroa MDREPT SERVICE DT/TIME: 02/28/23 1013* ALL edits or amendments must be made on the electronic/computer document * Clinical NoteNote:[facility] Willem Chahal M.D. (cell text [phone]) Assessment/Plan1.) Anemia of acute blood loss- .Hgb 10.3, asymptomatic.2.) S/p Left TKA- .acute multi-modal pain control and followup. Anticoagulationas per Dr. Laurent.3.) Hypothyroid- .follow on T4 replacement.4.) OsteoArthritis Hyperlipidemia- .continue on Rx.* OK for DISCHARGE per Internal Medicine. Prior Events/Overnight: Uneventful.Chief Complaint: No significant complaints. ObjectiveVital Signs: Date Time Temp Pulse Resp B/P B/P Pulse O2 O2 Flow FiO2 Mean Ox Delivery Rate 02/28 0722 Nasal cannula 02/28 0650 98.2 74 15 103/61 74.7 90 Room air 02/28 0534 97.5 80 16 97/55 69 97 02/27 2300 97.5 73 16 92/55 67 96 02/277 98.1 71 16 102/56 71 96 02/27 1920 Nasal 3 cannula Gen: Alert, oriented, in mild discomfort Neck: No Masses, No Thyromegaly-CV: Regular Rate Rhythm / Edema- no significant Resp: Clear To Ascultation / Normal Respiratory EffortABD: NonTender / NonDistended MS/Skin: No sign of compartment syndrome / +ankle DF/PFOther: Labs/X-ray: Laboratory Tests: 02/28 0335 Chemistry Sodium (136 - 145 mmol/L) 141 Potassium (3.5 - 5.1 mmol/L) 5.1 Chloride (98 - 107 mmol/L) 107.0 Carbon Dioxide (21 - 32 mmol/L) 26.8 BUN (7 - 18 mg/dL) 8 Creatinine (0.55 - 1.02 mg/dL) 0.73 Glomerular Filtr Rate (>60) 85.2 Glucose (74 - 106 mg/dL) 129 H Calcium (8.5 - 10.1 mg/dL) 7.9 L Hematology Hgb (12 - 16 g/dL) 10.3 L Hct (37 - 47 %) 32.1 L Willem Chahal M.D. at 1729 RPT #:[id number] OF REPORT CLClinical sojt6188-99-64H19:13:00Y.[id number] able for patient xxfwNCRITAAHFJSROQ2183-83-75A72:29:53 [facility] 2023-02-28 08:37:00 [id number] 13T08:37:00 [facility] ([facility])Discharge SummaryREPORT#:[id number] REPORT STATUS: SignedREPORT INITIALIZATION DATE:02/28/23 TIME: 836 PATIENT: LENIN DIAS UNIT #: [id number]#: [id number] ROOM/BED: Y301-BDOB: [birth year] AGE: 77 SEX: F ATTEND: Roman Laurent AUTHOR: Mohini Perez PAREPT SERVICE DT/TIME: 02/28/23 0837* ALL edits or amendments must be made on the electronic/computer document * General InformationDate of admission:Observation Start Date: 02/27/23Date of admission: 02/27/23 Discharge date: 02/28/23Admission diagnosis:Left knee osteoarthritisRight hip GT bursitisDischarge diagnosis:sameHospital course:The patient underwent the procedure without incident. Findings were significantfor degenerative disease of the knee. The patient was hemodynamically and medically monitored during the post op period. Anticoagulation was instituted for post op DVT prophylaxis. The patient was progressively able to tolerate PO pain medications and the appropriate diet. PT was instituted, with a progressive ability to ambulate and performed exercises. The patient was eventually deemed stable and safe for discharge. Despite factors which projected a longer hospital stay, the patient fulfilled criteria for earlier than expected discharge, including control of pain, early mobilization with PT and stable hemodynamic status. At discharge the patient was comfortable with a controlled pain level. There were no chest or abdominal symptoms present. Discharge physical exam demonstrated stable vitals and no acute distress. The patient had an intact dressing with no significant drainage and no calf tenderness. There were no neurologic or vascular deficits or changes from the preop states. We discussed that postoperative management to optimize health is in the best interest of not only the patient s surgical recovery but their overall health.Consultants: internal medicinePt. condition on discharge: stableAllergies:Allergies:Penicillins (Coded, Severe, THROAT SWELLS, 02/27/23)codeine (Coded, Severe, THROAT SWELLS, 02/27/23) Med Rec Med RecDischarge meds:Continue taking these medications:ATORVASTATIN (LIPITOR) 40 MG TAB 40 MILLIGRAM ORAL DAILY. buPROPion HCL SR (WELLBUTRIN SR) 150 MG TAB.SA 150 MILLIGRAM ORAL DAILY. CALCIUM CARBONATE ([id number]) 500 MG CALCIUM (1,250 MG) TAB 1,000 MILLIGRAM ORAL DAILY. LEVOTHYROXINE (SYNTHROID) 50 MCG TAB 50 MICROGRAM ORAL DAILY. QUEtiapine (SEROquel) 200 MG TAB 200 MILLIGRAM ORAL DAILY PM ZONISAMIDE (ZONEGRAN) 25 MG CAP 25 MILLIGRAM ORAL TWICE DAILY. traZODone (DESYREL) 100 MG TAB 100 MILLIGRAM ORAL BEDTIME. Treatments ProceduresTreatments Procedures:Procedure: Left total knee arthroplastyRight Hip GT bursa CS injectionLab:Chemistry last 24 hrs: 02/28 0335 Chemistry Sodium (136 - 145 mmol/L) 141 Potassium (3.5 - 5.1 mmol/L) 5.1 Chloride (98 - 107 mmol/L) 107.0 BUN (7 - 18 mg/dL) 8 Creatinine (0.55 - 1.02 mg/dL) 0.73 Glucose (74 - 106 mg/dL) 129 H Hematology last 24 hrs: 02/28 0335 Hematology Hgb (12 - 16 g/dL) 10.3 L Hct (37 - 47 %) 32.1 L Discharge Instructions PCP)( Discharge to: Home/Self Care Discharge InstructionsAdditional Discharge Routines: Attending Follow-Up, Wound/Dressing Care)( Diet: Resume Home Diet/Feeds)( Weight monitoring: Not Required)( Activity: As Tolerated)( Wound/dressing care: Do not submerge incision, Leave dressing in place, OK toshower tomorrowPrescriptions: e-prescribeRx drug database reviewed: yes Follow-up AppointmentsAttending Physician: Attending Physician: Roman Laurent MD Attending physician follow up timeframe: In 1-2 weeks at 0839 at 1522 RPT #:[id number] OF REPORT DSDischarge cwdyvre9208-55-45N46:37:00Y.[id number] ailable for patient ynkbRZJFWQYINDYUCW9151-25-34L87:40:11 [facility] 2023-02-27 17:12:00 [id number]- 12T17:12:00 [facility] ([facility])Clinical NoteREPORT#:[id number] REPORT STATUS: SignedREPORT INITIALIZATION DATE:02/27/23 TIME: 1711 PATIENT: LENIN DIAS UNIT #: [id number]#: [id number] ROOM/BED: 301-BDOB: [birth year] AGE: 77 SEX: F ATTEND: Roman Laurent AUTHOR: Willem Figueroa MDREPT SERVICE DT/TIME: 02/27/231711* ALL edits or amendments must be made on the electronic/computer document * Clinical NoteNote:[facility] Willem Chahal MD(cell text [phone])Internal Medicine Consult at request of : Dr. Roman Laurent Chief Complaint: left knee pain and right hip pain HPI: 77yo F is now s/p Left Total knee Arthroplasty (TKA) and Right Hip Steroid Injection by Dr. Laurent. Ms. Dias relates years of progressive left knee pain (recently severe, 10/26), worse with activity, and with restricted motion at times in quality. She has failed conservative management.Comorbidities: see below. PmHx: .OsteoArthritis, hypothyroidism , hyperlipidemia , breast cancer, depression and anxiety ALLERGY: Allergies:Penicillins (Coded, Severe, THROAT SWELLS, 02/27/23)codeine (Coded, Severe, THROAT SWELLS, 02/27/23) Home Medications: Home Medications:ATORVASTATIN (LIPITOR) 40 MG PO DAILY buPROPion HCL SR (WELLBUTRIN SR) 150 MG PO DAILY CALCIUM CARBONATE ([id number]) 1,000 MG PO DAILY LEVOTHYROXINE (SYNTHROID) 50 MCG PO DAILY QUEtiapine (SEROquel) 200 MG PO DAILY PM ZONISAMIDE (ZONEGRAN) 25 MG PO BID traZODone (DESYREL) 100 MG PO BEDTIME SgHx: .Right breast surgery, femur surgery, appendectomy, ear surgery SHx: Tob: former smoker FHx: .No significant hx of DVT/PE.Alcohol: occasionally Drugs: none Lives: alone ..Vitals:Vital Signs: Date Time Temp Pulse Resp B/P B/P Pulse O2 O2 Flow FiO2 Mean Ox Delivery Rate 02/27 1531 97.9 78 15 97/59 71.7 100 Room air 02/27 1531 97.9 80 94/57 69.7 99 02/27 1045 97.3 83 16 96/59 71.6 100 Room air 02/27 0949 Nasal 2 100 cannula 02/27 0945 97.3 79 18 110/68 81.6 99 Nasal cannula 02/27 0914 96.4 86 20 115/56 75.8 98 Nasal cannula 02/27 0905 100 Nasal 2 28 cannula 02/27 0845 76 12 108/51 100 Nasal 3 cannula 02/27 0844 Nasal 3 cannula 02/27 0830 78 12 107/52 100 Nasal 3 cannula 02/27 0815 80 12 105/51 100 Nasal 3 cannula 02/27 0800 78 12 116/56 100 Nasal 3 cannula 02/27 0751 Simple 8 mask 02/27 0746 98.6 76 12 100/50 100 Simple 8 mask 02/27 0535 97.3 79 16 123/77 96 Room air Gen: Alert, in mild discomfort.EYE: Nl lids conjunctiva.ENT: Nl ears Nose, nl lips,. Neck: Supple, nl thyroid, No masses.CV: Regular Rate Rhythm, no heave or significant murmur. Edema- none RESP: Clear to Auscultation, normal Respiratory effort.ABD: Soft, NonDistended,.LYM: No significant cervical Lymphadenopathy.MS: No sign of compartment syndrome, knee is wrapped, drain in place.NEURO: Nonfocal, grossly normal sensation of LE, +Ankle DF/PF..Preop Labs(02/19/23): CBC:. Hgb 13.5, Plt 286, CHEM: Na 140, K 3.9, Cr 0.71 (eGFR88 %), . Ekg: NSR.(medium to high risk of complications or morbidity) (major surgery) (IV sedative, meds).Assessment Plan1.) Anemia of Acute Blood Loss- .will recheck tomorrow. 2.) S/p Left TKA- .acute multi-modal pain control and followup. Anticoagulationas per Dr. Laurent.3.) Hypothyroid- .follow on T4 replacement.4.) OsteoArthritis Hyperlipidemia- .continue on Rx.. Willem Chahal M.D. Thanks!..... G9903 - Patient screened for tobacco use AND identified as a tobacco non-snjs4255R - ACP discussion - default code status while at [facility]. G8420 BMI is documented as within normal parameters (18-25). at 2144 RPT #:[id number] OF REPORT CLClinical [id number]:12:00Y.[id number] able for patient tbnoLCQQMVKMHZDFZZ8596-71-31N72:42:10 [facility] 2023-02-[facility] 07:36:00 [id number] 12T07:36:[id number] [facility] [place] [address] PATIENT NAME: LENIN DIAS ADMIT DATE: 02/27/23ACCOUNT NO: [id number] ROOM NO: Y.998 AGE: 77 REPORT TYPE: OPERATIVE REPORT SEX: F ADMITTING PHYSICIAN:Roman Laurent MD ATTENDING PHYSICIAN:Roman Laurent MD OPERATION DATE: 02/27/2023 PREOPERATIVE DIAGNOSES:1. Left knee osteoarthropathy.2. Right hip trochanteric bursitis. POSTOPERATIVE DIAGNOSES:1. Left knee osteoarthritis, M17.12.2. Right hip trochanteric bursitis. OPERATIVE PROCEDURES PERFORMED:1. Computer-assisted imageless left total knee arthroplasty, 34057.. IMPLANTS UTILIZED: DePuy Sigma total knee system, size 2.5 left posterior stabilized femur, size 2.5 fixed bearing tibial tray 2.5 x 8 mm fixed bearing posterior cruciate sacrificing tibial insert, 35 mm oval patella, all componentscemented. ANESTHESIA: General. TOURNIQUET TIME: Seventeen minutes. ESTIMATED BLOOD LOSS: Less than 25 mL. SURGEON: Roman Laurent M.D. BENEFITS ANALYST: TAVARES Perez. OPERATIVE FINDINGS: As above. SURGICAL SPECIMENS SENT: None. CLINICAL INDICATIONS: Ms. Dias is a 77-year-old female from [place], [place], who has been having progressive and severe pain involving her left knee for the past several years. The pain is quite disabling in nature. Her pain has been refractory to nonoperative intervention. Due to her significant disability and lack of response to nonoperative intervention, she was admitted for computer-assisted imageless left total knee arthroplasty along with a concomitant ultrasound-guided injection of the right hip trochanteric bursa. OPERATIVE NARRATIVE: PATIENT NAME: LENIN DIAS 1. LEFT TOTAL KNEE ARTHROPLASTY COMPUTER-ASSISTED IMAGELESS, 25957..3. ULTRASOUND-GUIDED INJECTION, RIGHT HIP TROCHANTERIC BURSA, . DESCRIPTION OF PROCEDURE: Ms. Dias was brought into the operative suite at which time she was placed in supine position on the OR table. Routine monitors were established. General anesthesia was delivered. After satisfactory induction of general anesthesia, a tourniquet was applied to the patient's left lower extremity per Ms. Perez and the leg was circumferentially prepped and draped in usual sterile fashion per Ms. Sanlukas. The leg was then elevated, exsanguinated, and tourniquet insufflated to 300 mmHg. The left knee was circumferentially prepped and draped in usual sterile fashion per Ms. Sanlukas. Previous medial parapatellar arthrotomy was utilized and extended proximally anddistally. Medial parapatellar arthrotomy was performed. Patella was everted laterally. Hypertrophic osteophytes were resected. Extensive grade IV changes noted through all 3 compartments. Ligament balancing was achieved. Medial and lateral menisci were excised. Anterior and posterior cruciate ligaments were then resected. A centramedullary pin was then placed in the anatomic center of the distal femurand the OrthAlign guide was placed and the knee was registered. The guide was then pinned in 0 degrees of varus valgus angulation with 3 degrees of flexion. The distal 10 mm of the femur was then resected. The guide was removed, distal femur appropriately sized and a 2.5 cutting block was used to create the anterior followed by posterior followed by chamfer cuts. The appropriate osteotomy guide was then placed across distal femur and the femoral notch was resected. The proximal tibia was translated anteriorly utilizing extramedullaryinstrumentation, the proximal tibia resected perpendicular to its mechanical axis, resecting 10 mm from the unaffected lateral tibial plateau. The proximal tibia was appropriately sized and a 2.5 baseplate was noted to provide optimal coverage. The proximal tibia was appropriately prepped. The patella was then resected, so as to ensure evangelical was of normal height with prosthesis in place. Flexion as well as extension gaps were checked and noted to be equal. Trial components were placed into the joint. Optimal stability was noted with an 8 mminsert, 0 degrees of gravity extension with 140 degrees of gravity flexion were present. Patellofemoral tracking was within normal limits. There was no varus or valgus instability noted. The knee was stable in both flexion as well as extension. Trial components were removed. Bony surfaces prepared for cement implantation using pulsatile lavage irrigation. Tibial tray cemented into placefollowed by cement implantation of femoral component. Polyethylene insert was then placed on tibial tray and the knee was placed in full extension. Patellar component was cemented. Tourniquet deflated. Meticulous hemostasis achieved with Bovie electrocautery. Copious antibiotic lavage was performed. Medium Hemovac drain was then placed deep to the extensor mechanism. The knee was placed into 70 degrees of flexion. Arthrotomy closed in watertight fashion, 3.0Quill suture. Skin closure with interrupted 0 Vicryl followed by 2-0 Vicryl, followed by Ethicon Prineo mesh as per Ms. Perez. Intraarticular anesthetic injection performed by Ms. Perez. Sterile dressing was applied by Ms. Perez. At this time, the right hip was aseptically prepped and utilizing biplanar ultrasound guidance, the trochanteric bursa was injected with 120 mg of Depo-Medrol. Mrs. Dias was then extubated, taken to recovery room awake and PATIENT NAME: LENIN DIAS alert without any anesthetic or operative complications. At the end of the case, sponge and needle counts were correct x2. During the procedure, Ms. Perez was invaluable in positioning the patient alongwith preparation and draping of the extremity. She was also vital for any surgical exposure throughout the procedure in addition to closure of the postoperative incisions, intra-articular anesthetic injection and application ofpostoperative dressing. Utilizing the OrthAlign guidance system can dramatically reduce intraoperative and postoperative blood loss due to lack of creation of an intramedullary tunnelin distal femur. Also, several studies have shown that the accuracy of distal femoral resection is greatly enhanced over standard intramedullary instrumentation Dictated By: Roman Laurent MD Date Dictated: 02/27/2023 07:36:05Date Transcribed: 02/27/2023 08:20:42RLB/REKJob #: [id number] ID: [id number] by Roman Laurent MD On 02/27/2023 09:08:09 AM at 0908 PATIENT NAME: LENIN DIAS xpwaoc2902-56-92M82:20:00Y.[id number] lable for patient ciygIANPIBQTAYARFO0081-74-60U85:08:49 [facility] 2023-02-27 06:29:00 [id number] 12T06:29:00 [facility] ([facility])Brief Op NoteREPORT#:[id number] REPORT STATUS: SignedREPORT INITIALIZATION DATE:02/27/23 TIME: 628 PATIENT: LENIN DIAS UNIT #: [id number]#: [id number] ROOM/BED: Y.998-4DOB: [birth year] AGE: 77 SEX: F ATTEND: Roman Laurent AUTHOR: Mohini Perez PAREPT SERVICE DT/TIME: 02/27/23628* ALL edits or amendments must be made on the electronic/computer document * Op/Inv Proc Note - BriefPre-procedure diagnosis:Left knee osteoarthritisRight hip GT bursitisPost-procedure diagnosis: same as pre procedure dxProcedures performed:Left total knee arthroplastyRight hip GT CS injectionPrimary Surgeon:MarloneAssistant(s): Ana CHAPIN-CFindings:as aboveComplications: noneEstimated blood loss in ml's: 25ccSpecimens removed/altered: none at 0630 at 0906 RPT #:[id number] OF REPORT OPOperative [id number]:29:00Y.[id number] ilable for patient xumaTQBEPPOOUTCWWO8446-31-40Y92:30:29 [facility] 2023-02-23 05:41:00 [id number] 08T05:41:[id number] [facility] [place] [address] PATIENT NAME: LENIN DIAS ADMIT DATE: ACCOUNT NO: [id number] ROOM NO: AGE: 77 REPORT TYPE: HISTORY AND PHYSICAL SEX: F ADMITTING PHYSICIAN:Roman Laurent MD ATTENDING PHYSICIAN:Roman Laurent MD ADMISSION DATE: 02/27/2023 15:00:00 ADMITTING DIAGNOSIS: Left knee osteoarthritis, M17.12. HISTORY OF PRESENT ILLNESS: Ms. Dias is a 77-year-old female who has been having progressive pain in her left knee for the past 10 years. The pain is occurring on a daily basis. Her pain has been refractory to nonoperative treatment. Due to her severe disability and lack of response to nonoperative intervention, she is admitted for computer-assisted imageless left total knee arthroplasty. PAST MEDICAL HISTORY: Anxiety, carcinoma, depression, thyroid disease. SURGERIES: Include appendectomy, breast surgery, sinus surgery, right hip fracture, and knee surgery. FAMILY HISTORY: Carcinoma, coronary artery disease. SOCIAL HISTORY: She is a former smoker. She drinks occasionally. ALLERGIES: AMOXICILLIN, CODEINE AND PENICILLIN. SHE DOES NOTE ANAPHYLAXIS WITHPENICILLIN. MEDICATIONS: Atorvastatin, clonazepam, levothyroxine, omeprazole, trazodone, and venlafaxine. PHYSICAL EVALUATION:VITAL SIGNS: 5 feet tall, 51.8 kg.HEENT: Normal limits.CARDIAC: Regular rate and rhythm. No murmur.CHEST: Clear.ABDOMEN: Benign.BACK: No CVA tenderness.EXTREMITIES: Leg lengths are equal. Full painless motion of both hips. Examination of the left knee reveals an antalgic gait. She has a positive effusion. She has painful passive motion. She has 0-110 degrees of motion. There is no instability. Her distal neurovascular status is intact. Radiographic evaluation reveals varus alignment with severe tricompartmental arthritis. ASSESSMENT: Left knee pain secondary to severe osteoarthritis. PATIENT NAME: LENIN DIAS SURGICAL PLAN: Computer-assisted imageless left total knee arthroplasty. I have gone over at length with the patient the associated risks involved with this procedure. She understands that these include but not limited to bleeding,infection, neurovascular damage, leg length inequality, loosening of the prosthesis requiring possible revision, loss of motion, painful scar, persistentlimp, deep vein thrombi leading to pulmonary emboli along with complications secondary to anesthesia. Furthermore, she understands there are absolutely no guarantees or warranties that she will be pain free as a result of this procedure. She understands that she will receive a fixed bearing posterior cruciate sacrificing total knee arthroplasty. She accepts these risks and givesher informed consent to proceed. Dictated By: Roman Laurent MD Date Dictated: 02/23/2023 05:41:14Date Transcribed: 02/23/2023 05:53:44RLB/PREJob #: [id number] ID: [id number] by Roman Laurent MD On 02/23/2023 06:50:07 AM at 0650 PATIENT NAME: LENIN DIAS Kaia and physical yokbtmdtdww5207-39-80H22:53:00Y.[id number] VAvailable for patient twoaAXADYZOWCYTPOZ6943-44-72D10:50:41 [facility]
[2023-03-01 11:23] LABS: Absolute Lymphocytes (CBC) 1.3 K/uL (0.7-4.9); Hematocrit 27.1 % (36.0-45.0); Lymphocytes % 12.4 % (15.3-44.8); MCV 95.8 fL (80-100); MPV 8.6 fL (7.6-11.3); Platelets 198 thou/uL (152-406); RBC Red Blood Cell Count 2.83 M/uL (3.86-4.86)
--- NOTE | 2023-03-01 11:44 | RAD REPORT ---
EX[facility] DESCRIPTION[facility]01/2023 11:15 am CLINICAL HISTORY: syncope COMPARISON: Chest Single View dated 12/01/2021; Chest Single View dated 05/05/2021; Chest Pa And Lat ( 2 Views) dated 11/30/2015; CHEST PA AND LAT 2 VIEW dated 03/22/2015 TECHNIQUE: Portable AP view of the chest. FINDINGS: The lungs are clear. No pneumothorax or effusion. The cardiomediastinal contours are unre markable. Surgical clips again seen in the right axilla. IMPRESSION: No acute cardiopulmonary process. No significant interval change.
[2023-03-01 12:00] LABS: Potassium 4.1 mEq/L (3.5-5.1); Troponin High Sensitivity 6.3 pg/mL (<58.9)
--- NOTE | 2023-03-01 12:56 | EDPHYS ---
Physician Documentation [facility] Name: Rachel Walker Age: 77 yrs Sex: Female : 1945 Arrival Date: 03/01/2023 Time: 10:49 Bed 18 Private MD: ED Physician Eric Cuellar HPI: 03/01 10:53 This 77 yrs old Female presents to ER via Unassigned with complaints of ec2 Syncope. 10:53 Patient arrives today due to concern for presyncope. She states that she has been ec2 feeling lightheaded throughout the day. Patient reports no head pain, chest pain, shortness of breath, abdominal pain. States that she recently had left knee replaced and has had no issues with this. Patient reports no falls or injuries or trauma. EMS reports that they had started some crystalloid due to borderline blood pressures however patient reports that she typically has systolics in the 90s to 100s. Patient states that she has had poor p.o. intake for the past several days.. Historical: - Allergies: 10:55 Codeine; cp4 10:55 PENICILLINS; cp4 - PMHx: 10:55 BREAST CA; Depression; Hypothyroidism; cp4 - PSHx: 10:55 left knee; Right hip; right mastectomy; cp4 - Immunization history:: Adult Immunizations up to date. - Social history:: Smoking status: Patient denies any tobacco usage or history of. ROS: 10:53 Constitutional: as per hpi ec2 Exam: 10:53 Constitutional: GEN: NAD Head: atraumatic Eyes: EOMI Ears: External ears are ec2 normal. CV: regular rate LUNGS: no respiratory distress ABD: non-distended, soft, nontender, not guarding, not rigid SKIN: no evidence of rashes MSK: no evidence of trauma NEURO: moves all extremities equally Vital Signs: 10:53 BP 103 / 57; Pulse 61; Resp 16; Temp 97.6; Pulse Ox 100% ; Weight 48.99 kg; Height 5 cp4 ft. 1 in. ; 11:52 BP 103 / 58; Pulse 60; Resp 18; Pulse Ox 98% ; cp4 13:00 BP 132 / 74; Pulse 57; Resp 16; Pulse Ox 100% ; cp4 10:53 Body Mass Index 20.41 (48.99 kg, 154.94 cm) cp4 MDM: 10:52 Patient medically screened. ec2 10:53 ED course: Patient arrives today due to concern for lightheadedness. Patient ec2 examination is remarkable for well-appearing nontoxic individual with no remarkable findings. Will obtain lab work, EKG, chest x-ray and continue the crystalloid infusion. Currently considering dehydration, electrolyte disturbances, anemia. Low suspicion for ACS or PE or dissection. Patient also reports that she has improvement in her symptoms after the initiation of the crystalloid bolus with EMS.. 11:05 ED course: EKG independently reviewed and interpreted by me, shows normal sinus rhythm, ec2 rate of 66, no acute ST segment elevations, nonconcerning intervals.. 12:50 Data reviewed: vital signs. ED course: Metabolic profile is reassuring, reassuring CBC ec2 with slight anemia appreciated. Troponin is within normal ranges. Chest x-ray shows no acute intrathoracic process. . 12:54 ED course: On reassessment patient reports improvement in her symptoms, reports no ec2 recurrence of her symptoms. Patient is ambulatory without issue. Will discharge home. Return precautions given.. 03/01 10:53 Order name: Basic Metabolic Panel; Complete Time: 12:49 ec2 03/01 10:53 Order name: CBC with Diff; Complete Time: 12:49 ec2 03/01 10:53 Order name: Troponin HS; Complete Time: 12:49 ec2 03/01 10:53 Order name: XRAY Chest (1 view); Complete Time: 12:49 ec2 03/01 10:53 Order name: EKG; Complete Time: 10:53 ec2 03/01 10:53 Order name: Cardiac monitoring ec2 03/01 10:53 Order name: EKG - Nurse/Tech; Complete Time: 10:59 ec2 03/01 10:53 Order name: IV Saline Lock; Complete Time: 11:07 ec2 03/01 10:53 Order name: Labs collected and sent; Complete Time: 11:07 ec2 03/01 10:53 Order name: O2 Per Protocol; Complete Time: 10:59 ec2 03/01 10:53 Order name: O2 Sat Monitoring; Complete Time: 10:59 ec2 Administered Medications: 10:59 Drug: NS 0.9% IV 1000 ml IV at 1 bolus Per protocol; 1000 mL bolus Route: IV; Rate: 1 cp4 bolus; Site: right antecubital; 13:11 Follow up: Response: No adverse reaction; IV Status: Completed infusion cp4 Point of Care Testing: Blood Glucose: 10:55 Blood Glucose: 81 mg/dL; cp4 Ranges: Critical Glucose Levels:Adult <50 mg/dl or >400 mg/dl <40 mg/dl or >180 mg/dl Disposition Summary: 03/01/23 12:55 Discharge Ordered Notes: Location: Home ec2 Condition: Stable ec2 Diagnosis - Syncope Near ec2 Followup: ec2 - With: Private Physician - When: - Reason: Re-evaluation by your physician Discharge Instructions: - Discharge Summary Sheet ec2 - Near-Syncope ec2 Forms: - Medication Reconciliation Form ec2 - Thank You Letter ec2 - Antibiotic Education ec2 - Prescription Opioid Use ec2 - Patient Portal Instructions ec2 - Leadership Thank You Letter ec2 Signatures: Dispatcher [employer] Eric Craft MD MD ec2 Fernanda Agudelo cp4 Corrections: (The following items were deleted from the chart) 10:55 10:53 Patient arrives today due to concern for presyncope. She states that she has been ec2 feeling lightheaded throughout the day. Patient reports no head pain, chest pain, shortness of breath, abdominal pain. States that she recently had left knee replaced and has had no issues with this. Patient reports no falls or injuries or trauma.. ec2 10:56 10:55 PSHx: Mastoidectomy; cp4 cp4 10:56 10:55 PSHx: Mastoidectomy; cp4 cp4
--- NOTE | 2023-03-01 12:56 | ER ---
Nurse's Notes [facility] Name: Rachel Walker Age: 77 yrs Sex: Female : 1945 Arrival Date: 03/01/2023 Time: 10:49 Bed 18 Private MD: Diagnosis: Syncope Near Presentation: 03/01 10:53 Chief complaint: EMS states: near syncopal episodes x3. States she just had knee sx cp4 this week. Coronavirus screen: Vaccine status: Patient reports receiving the 2nd dose of the covid vaccine. Client denies travel out of the [place] in the last 14 days. At this time, the client does not indicate any symptoms associated with coronavirus-19. Ebola Screen: Patient negative for fever greater than or equal to 101.5 degrees Fahrenheit, and additional compatible Ebola Virus Disease symptoms Patient denies exposure to infectious person. Patient denies travel to an Ebola-affected area in the 21 days before illness onset. No symptoms or risks identified at this time. Initial Sepsis Screen: Does the patient meet any 2 criteria? No. Patient's initial sepsis screen is negative. Does the patient have a suspected source of infection? No. Patient's initial sepsis screen is negative. Risk Assessment: Do you want to hurt yourself or someone else? Patient reports no desire to harm self or others. Onset of symptoms was March 01, 2023. 10:53 Method Of Arrival: EMS: [facility] cp4 10:53 Acuity: MAYA 3 cp4 Triage Assessment: 10:55 General: Appears in no apparent distress. Behavior is calm, cooperative, appropriate cp4 for age. Pain: Denies pain. Neuro: No deficits noted. Reports dizziness, a syncopal episode. Historical: - Allergies: 10:55 Codeine; cp4 10:55 PENICILLINS; cp4 - PMHx: 10:55 BREAST CA; Depression; Hypothyroidism; cp4 - PSHx: 10:55 left knee; Right hip; right mastectomy; cp4 - Immunization history:: Adult Immunizations up to date. - Social history:: Smoking status: Patient denies any tobacco usage or history of. Screenin:58 [facility] ED Fall Risk Assessment (Adult) History of falling in the last 3 months, cp4 including since admission No falls in past 3 months (0 pts) Confusion or Disorientation No (0 pts) Intoxicated or Sedated No (0 pts) Impaired Gait No (0 pts) Mobility Assist Device Used No (0 pt) Altered Elimination No (0 pt) Score/Fall Risk Level 0 - 2 = Low Risk Oriented to surroundings, Maintained a safe environment, Educated pt \T\ family on fall prevention, incl call for assistance when getting out of bed, Assessed \T\ reinforced patient's understanding of fall precautions, Hourly rounding (assess needs \T\ fall precautionary measures) done. Abuse screen: Denies threats or abuse. Nutritional screening: No deficits noted. Tuberculosis screening: No symptoms or risk factors identified. Assessment: 10:57 Neuro: No deficits noted. Level of Consciousness is awake, alert, obeys commands. cp4 Cardiovascular: Rhythm is sinus rhythm. 10:58 Reassessment: No changes from previously documented assessment. cp4 Vital Signs: 10:53 BP 103 / 57; Pulse 61; Resp 16; Temp 97.6; Pulse Ox 100% ; Weight 48.99 kg; Height 5 cp4 ft. 1 in. ; 11:52 BP 103 / 58; Pulse 60; Resp 18; Pulse Ox 98% ; cp4 13:00 BP 132 / 74; Pulse 57; Resp 16; Pulse Ox 100% ; cp4 10:53 Body Mass Index 20.41 (48.99 kg, 154.94 cm) cp4 ED Course: 10:52 Patient arrived in ED. cp4 10:52 Eric Cuellar MD is Attending Physician. ec2 10:53 Fernanda Agudelo is Primary Nurse. cp4 10:55 Triage completed. cp4 10:55 Arm band placed on right wrist. Patient placed in an exam room, on a stretcher. cp4 10:58 Bed in low position. Call light in reach. Side rails up X 1. cp4 10:58 No provider procedures requiring assistance completed. Maintain EMS IV. Dressing cp4 intact. Good blood return noted. Site clean \T\ dry. Gauge \T\ site: 20 G right AC. 11:17 XRAY Chest (1 view) In Process Unspecified. EDMS 13:13 Provided Education on: near syncope. cp4 13:13 intact, bleeding controlled, No redness/swelling at site. Pressure dressing applied. cp4 Administered Medications: 10:59 Drug: NS 0.9% IV 1000 ml IV at 1 bolus Per protocol; 1000 mL bolus Route: IV; Rate: 1 cp4 bolus; Site: right antecubital; 13:11 Follow up: Response: No adverse reaction; IV Status: Completed infusion cp4 Medication: 10:58 VIS not applicable for this client. cp4 Point of Care Testing: Blood Glucose: 10:55 Blood Glucose: 81 mg/dL; cp4 Ranges: Outcome: 12:55 Discharge ordered by MD. ec2 13:13 Discharged to home ambulatory, cp4 13:13 Condition: stable 13:13 Discharge instructions given to patient, Instructed on discharge instructions, follow up and referral plans. Demonstrated understanding of instructions, follow-up care, 13:14 Patient left the ED. cp4 Signatures: Dispatcher [employer] EDEric Landin MD MD ec2 Fernanda Agudelo cp4 Corrections: (The following items were deleted from the chart) 10:56 10:55 PSHx: Mastoidectomy; cp4 cp4 10:56 10:55 PSHx: Mastoidectomy; cp4 cp4 10:57 10:55 Blood Glucose: Blood Glucose Fdxrzjp=729 mg/dL. cp4 cp4
[2023-03-01 13:44] VITALS: BP 103/58; O2SAT 98
--- NOTE | 2023-03-05 12:36 | EKG ---
Test Date: 2023-03-01 Test Time: 10:55:45 After School Program Director: LASHANDA MEASUREMENT RESULTS: Intervals: Rate: 66 SD: 148 QRSD: 86 QT: 440 QTc: 461 [place]: P: 62 SD: 148 QRS: 52 T: 66 INTERPRETIVE STATEMENTS: Normal sinus rhythm Normal ECG Compared to ECG 02/20/2023 07:51:01 No significant changes Electronically Signed On 03-05-23 12:28:18 STEEL ANALYST by Eros Nieves
== END 2023-03-01 13:14 | disposition home or self-care (01) ==
LOC: ER 10:49
DX: R55 Syncope and collapse (principal); Z88.0 Allergy status to penicillin; Z88.5 Allergy status to narcotic agent
CPT/HCPCS: 36415; 71045; 80048; 84484; 85025; 93005; 96360; 96361; 99284

== ENCOUNTER 2023-03-06 16:45 | Inpatient (IN) | payer OTHER, MEDICARE ==
--- OUTSIDE RECORDS SUMMARY | 2023-03-06 16:49 | XMS REPORT | Continuity of Care Document ---
Author Name Unknown Address [address] [facility] [place] [address] [facility] thconnect Address [address] [facility] [address] [place] [address] Care Team Providers Care Senior Portfolio Manager Name Role Phone Marcellus Falcon Primary Care Physician [phone] Roman Laurent Attending Clinician Unavailable TRANG MURRIETA Attending Clinician Unavailable KADY RIVERA Attending Clinician Unavailable RHETT TSANG Attending Clinician Unavailable Jannet Attending Clinician Unavaila DAMON Aquino Attending Clinician Unavailable Mallika Paredes Attending Clinician [phone] Mariza Cameron Attending Clinician [phone] PASTOR BLANCO Attending Clinician Unavailable Radiology Attending Clinician Unavailable RADIOLOGY Attending Clinician Unavailable Doctor Unassigned, [place] Attending Clinician U navailable LINETTE PATEL III Attending Clinician UnavailRoman Lee Admitting Clinician Unavailable Jannet Admitting Clinician Unavaila MARCELLUS Ennis Admitting Clinician Unavailable LINETTE PATEL III Admitting Clinician Unavaila delores Payers Payer Name Policy Type Policy Number Effective Date Expirati on Date Source MEDICARE PART A AND B [id number] 2011 00:00:00 AARP-SECONDARY ONLY [id number] 00:00:00 [place] [employer] [id number] 2011 00:00:00 [employer] HE[employer] OPTIONS (MEDICARE SUPPLEMENT) [id number] 2022 00:00:00 AAR MEDICARE SUPPLEMENT [id number] 2012 00:00:00 MEDICARE PART A \T\ B [id number] 2011 00:00:00 [facility] MEDICARE SUPPLEMENT [id number] 2012 00:00:00 Problems Condition Name Condition Details Condition Category Status Onset Date Resolution Date Last Treatment Date Treating Clinician Comments Source Closed displaced intertroch anteric fracture of right femur Closed displaced intertroch anteric fracture of right femur Disease Active 07-20 00:00: 00 [facility] Allergies, Adverse Reactions, Alerts Allergy Name Allergy Type Status Severity Reaction(s) Onset Date Inactive Date Treating Clinician Comments Source Penicill ins DA Active THROAT SWELLS 2022-03 00:00: 00 [facility] codeine DA Active SV THROAT SWELLS 2022-03 00:00: 00 [facility] Penicill in G Allergy to substanc e Active 08-10 00:00: 00 Other reaction( s): Unknown [facility] CODEINE DRUG INGREDI Active Unknown-Cmnt 2018-03 00:00: 00 [facility] PENICILL IN DRUG INGREDI Active Unknown-Cmnt 2018-03 00:00: 00 [facility] CODEINE DRUG INGREDI Active Low Rash 05-12 [...] commentsU rticaria, hives, rash, asthma/re spiratory distress [facility] PENICILL INS Drug Class Active High Sob [...] Rash 05-12 00:00: 00 MD [place] Codeine Allergy to substanc e Active Rash 05-12 00:00: 00 Other reaction( s): Unknown, Unknown - See commentsU rticaria, hives Other reaction( s): Unknown [facility] PENICILL INS Drug Class Active High Sob 05-12 00:00: 00 MD [place] PENICILL INS Drug Class Active High Sob 05-12 00:00: 00 MD [place] CODEINE DRUG INGREDI Active Low Rash 05-12 00:00: 00 MD [place] PENICILL INS Drug Class Active High Sob 05-12 00:00: 00 MD [place] CODEINE DRUG INGREDI Active Low Rash 05-12 00:00: 00 [place] PENICILL INS Drug Class Active High [...] High Sob 05-12 00:00: 00 MD [place] [facility] CODEINE DRUG INGREDI Active Low Rash 05-12 [...] (event) 2021-11-28 00:00:00 2021-12-08 12:22:00 Not sure [facility] Sex Assigned At 1945 00:00:00 1945 00:00:00 [facility] Smoking Status Start Date Stop Date Source Tobacco smoking consumption unknown [facility] Encounters Start Date/Time End Date/Time Encounter Type Admission Type Attending [facility] Care Facility Care Department Encounter ID Source 2023-02-27 16:03:00 2023-02-27 16:03:00 Outpatient Roman Laurent [facility] [id number] 78 [facility] 2023-02-23 13:49:12 2023-02-23 15:23:51 Outpatient TRANG DSOUZA MDA MDA [id number] MD [place] 2023-02-23 13:40:19 2023-02-23 13:47:02 Outpatient TRANG DSOUZA MDA MDA [id number] MD [place] 2023-01-30 13:07:07 2023-01-30 23:59:00 Outpatient TRANG DSOUZA MDA MDA [id number] MD [place] 2023-01-30 15:12:24 2023-01-30 17:01:40 Outpatient PRADEEP TRINITY RIVERAILKeaton DESAI MDA [id number] MD [place] 2023-01-30 13:51:54 2023-01-30 13:51:54 Outpatient PRADEEP QIUTRANG TIJERINA MDA MDA [id number] MD [place] 2023-01-30 11:35:26 2023-01-30 11:35:26 Outpatient PRADEEP TSANG RHETT MDA MDA [id number] MD [place] 2022-11-22 00:00:00 2022-11-22 00:00:00 Outpatient FOG_Burke_R obFlorentino AOSM AOSM [id number] [facility] 2022-11-22 00:00:00 2022-11-22 00:00:00 Outpatient FOG_Burke_R obertIRINA AOSM AOSM [id number] [facility] 2022-11-22 00:00:00 2022-11-22 00:00:00 Outpatient FOG_Burke_R obFlorentino AOSM AOSM [id number] [facility] 2022-11-22 00:00:00 2022-11-22 00:00:00 Outpatient FOG_Burke_R obFlorentino AOSM AOSM [id number] [facility] 2022-11-22 00:00:00 2022-11-22 00:00:00 Outpatient FOG_Burke_R obertIRINA AOSM AOSM [id number] [facility] 2022-11-12 00:00:00 2022-11-12 00:00:00 Outpatient FOG_Burke_R obertIRINA AOSM AOSM [id number] [facility] 2022-11-12 00:00:00 2022-11-12 00:00:00 Outpatient FOG_Burke_R obertIRINA AOSM AOSM [id number] [facility] 2022-11-12 00:00:00 2022-11-12 00:00:00 Outpatient FOG_BurkeMalena Eli AOSM AOSM [id number] [facility] 2022-10-27 14:07:47 2022-10-27 15:06:03 Out[facility] TRANG DSOUZA MDA, [id number]22-10-27 13:54:38 2022-10-27 14:05:50 Outpatient TRANG DSOUZA MDA, [facility] [id number] [facility] 2022-10-20 00:00:00 2022-10-20 00:00:00 Outpatient FOGRaphaeleMalena Eli AOSM AOSM [id number] [facility] 2022-10-20 00:00:00 2022-10-20 00:00:00 Outpatient FOG_Cassidy Eli AOSM AOSM [id number] [facility] 2022-09-29 14:20:13 2022-09-29 15:33:59 Outpatient TRANG DSOUZA MDA, [facility] [id number] [facility] 2022-09-29 14:14:41 2022-09-29 14:19:03 Outpatient TRANG DSOUZA MDA, [id number] [facility] 2022-09-11 00:00:00 2022-09-11 00:00:00 Outpatient FOG_BurkeWeroR Sreedhar AOSM AOSM [id number] [facility] 2022-09-11 00:00:00 2022-09-11 00:00:00 Outpatient FOG_BurkeMalena Eli AOSM AOSM [id number] [facility] 2022-09-07 00:00:00 2022-09-07 00:00:00 Outpatient FOG_BurkeWeroR Sreedhar AOSM AOSM [id number] [facility] 2022-09-07 00:00:00 2022-09-07 00:00:00 Outpatient SUE_Marlonneptali[facility]Balwinder [facility] [id number] [facility] 2022-09-01 14:24:33 2022-09-01 15:34:12 Outpatient PRADEEP UYENBREEZY TRANG MDA MDA [id number] MD [place] 2022-09-01 14:12:38 2022-09-01 14:22:25 Outpatient PRADEEP QIUBREEZY TRANG MDA MDA [id number] MD [place] 2022-08-04 16:48:23 2022-08-04 16:48:23 Outpatient PRADEEP MURRIETA TRANG MDA MDA [id number] MD [place] 2022-08-04 16:47:34 2022-08-04 16:47:34 Outpatient PRADEEP MURRIETA TRANG MDA MDA [id number] MD [place] 2022-07-07 13:54:15 2022-07-07 15:20:02 Outpatient PRADEEP IQUBREEZY TRANG MDA MDA [id number] MD [place] 2022-07-07 13:41:19 2022-07-07 13:59:09 Outpatient PRADEEP MURRIETA TRANG MDA MDA [id number] MD [place] 2022-06-09 14:49:15 2022-06-09 16:09:28 Outpatient PRADEEP MURRIETA TRANG MDA MDA [id number] MD [place] 2022-06-09 14:34:41 2022-06-09 14:47:45 Outpatient PRADEEP MURRIETA TRANG MDA MDA [id number] MD [place] 2022-05-12 10:16:00 2022-05-12 13:09:44 Outpatient PRADEEP MURRIETA TRANG MDA MDA [id number] MD [place] 2022-05-12 10:03:15 2022-05-12 10:20:01 Outpatient PRADEEP MURRIETA TRANG MDA MDA [id number] MD [place] 2022-04-14 12:31:01 2022-04-14 13:35:15 Outpatient PRADEEP MURRIETA TRANG MDA MDA [id number] MD [place] 2022-04-14 12:21:47 2022-04-14 12:28:30 Outpatient FRANCINE DSOUZAYL MDA MDA [id number] MD [place] 2022-03-17 10:35:25 2022-03-17 11:22:32 Outpatient FRANCINE DSOUZAYL MDA MDA [id number] MD [place] 2022-03-17 10:24:24 2022-03-17 10:32:56 Outpatient PRADEEP MURRIETA TRANG MDA MDA [id number] MD [place] 2022-02-17 14:59:00 2022-02-17 16:09:32 Outpatient FRANCINE DSOUZAYL MDA MDA [id number] MD [place] 2022-02-17 14:49:30 2022-02-17 14:50:32 Outpatient FRANCINE DSOUZAYL MDA MDA [id number] MD [place] 2022-01-20 12:52:03 2022-01-20 13:56:13 Outpatient FRANCINE DSOUZAYL MDA MDA [id number] MD [place] 2022-01-20 12:39:34 2022-01-20 12:44:29 Outpatient TRANG DSOUZA MDA MDA [id number] MD [place] 2022-01-09 14:10:00 2022-01-09 23:59:00 Outpatient FRANCINE DSOUZAYL MDA MDA [id number] MD [place] 2022-01-09 12:29:33 2022-01-09 13:22:51 Outpatient PRADEEP TSANG RHETT MDA MDA [id number] MD [place] 2022-01-09 13:22:37 2022-01-09 13:22:37 Outpatient PRADEEP MURRIETA TRANG MDA MDA [id number] MD [place] 2022-01-09 11:44:29 2022-01-09 11:44:29 Outpatient PRADEEP TSANG RHETT MDA MDA [id number] MD [place] 2021-12-23 14:41:16 2021-12-23 16:31:33 Outpatient TRANG DSOUZA MDA MDA [id number] MD [place] 2021-12-23 14:27:55 2021-12-23 14:29:19 Outpatient TRANG DSOUZA MDA MDA [id number] MD [place] 2021-12-12 15:15:41 2021-12-12 23:59:00 Outpatient TRANG DSOUZA MDA MDA [id number] MD [place] 2021-12-12 13:21:33 2021-12-12 16:07:59 Outpatient ADMON KOENIG MDA MDA [id number] MD [place] 2021-12-08 12:30:00 2021-12-08 13:01:59 Outpatient [facility] [id number] [facility] 2021-12-08 12:30:00 2021-12-08 13:01:59 Office Visit Mallika Newsome [facility] [address] [id number] [facility] 2021-09-01 13:45:00 2021-09-01 14:40:58 Office Visit Mariza Childers [facility] [address] [id number] [facility] 2021-07-21 14:15:00 2021-07-21 15:11:21 Office Visit Mallika Newsome [facility] [address] [id number] [facility] 2021-06-23 14:00:00 2021-06-23 14:23:08 Office Visit Mariza Childers [facility] [address] [id number] [facility] 2020-12-20 14:32:34 2020-12-20 14:32:34 Outpatient PRADEEP MDA MDA [id number] MD [place] 2020-12-20 13:27:07 2020-12-20 13:27:07 Outpatient PASTOR NUNN MDA [facility] [id number] MD [place] 2020-12-20 10:02:16 2020-12-20 11:22:07 Outpatient RHETT CROWLEY LLOYD DESAI [id number] MD [place] 2019-04-01 10:33:00 2019-04-01 23:59:00 Hospital Encounter Radiology [facility] [id number] 2019-04-01 10:33:11 2019-04-01 10:32:00 Outpatient R RADIOLOGY [facility] [id number] [facility] 2019-04-01 10:30:00 2019-04-01 10:32:00 Hospital Encounter Radiology [facility] [id number] 2019-04-01 00:00:00 2019-04-01 00:00:00 Orders Only Doctor Unassigned, [place] [facility] [id number] 2019-02-20 12:58:20 2019-02-20 16:08:00 Emergency X JORGE III, LINETTE [facility] ERT [id number] [facility]
[2023-03-06] MEDS ORDERED: ONDANSETRON 4 MG/2 ML VIAL ONE (17:10)
[2023-03-06] MEDS ORDERED: ASPIRIN 81 MG CHEWABLE TABLET ONE (17:10)
[2023-03-06] MEDS ORDERED: FAMOTIDINE 20 MG/2 ML VIAL IV ONE (17:11)
[2023-03-06] MEDS ORDERED: NA CHLORIDE 0.9% 2,000 ML ONE (17:11)
[2023-03-06 17:17] LABS: Absolute Lymphocytes (CBC) 2.1 K/uL (0.7-4.9); Hematocrit 33.9 % (36.0-45.0); Lymphocytes % 9.7 % (15.3-44.8); MCV 93.9 fL (80-100); MPV 7.9 fL (7.6-11.3); Platelets 408 thou/uL (152-406); Protime INR 1.13; RBC Red Blood Cell Count 3.61 M/uL (3.86-4.86)
--- NOTE | 2023-03-06 17:25 | RAD REPORT ---
EXAM DESCRIPTION: RAD - Chest Single View - 03/06/2023 5:13 pm CLINICAL HISTORY: CHEST PAIN Chest pain. COMPARISON: Chest Single View dated 03/01/2023; Chest Single View dated 12/01/2021; Chest Single View dated 05/05/2021; Chest Pa And Lat (2 Views) dated 11/30/2015 FINDINGS: Portable technique limits examination quality. The lungs are grossly clear. The heart is upper limit of normal in size. No displaced fractures. IMPRESSION: No acute intrathoracic process suspected.
[2023-03-06 17:35] LABS: Potassium 3.8 mEq/L (3.5-5.1)
[2023-03-06 17:36] LABS: Albumin 2.4 g/dL (3.4-5.0); Bilirubin Direct 0.2 mg/dL (0-0.2); Bilirubin Indirect, Calculated 0.3 mg/dL (0.2-0.8); Bilirubin Total 0.5 mg/dL (0.2-1.0); Magnesium 1.9 mg/dL (1.6-2.4); Protein, Total 5.8 g/dL (6.4-8.2); Troponin High Sensitivity 29.7 pg/mL (<58.9)
--- NOTE | 2023-03-06 17:51 | RAD REPORT ---
EXAM DESCRIPTION: US - Extrem Venous W Compress Camacho - 03/06/2023 5:44 pm CLINICAL HISTORY: PAIN Bilateral leg edema and swelling. COMPARISON: No comparisons TECHNIQUE: Real-time sonographic interrogation of the left and right lower extremity deep venous sys tems was performed. FINDINGS: Normal compressibility, flow augmentation, phasic flow and spontaneous flow is identified in both the left and right lower extremity deep venous systems. IMPRESSION: No sonographic evidence of left or right lower extremity deep venous thrombosis.
--- NOTE | 2023-03-06 18:10 | RAD REPORT ---
EXAM DESCRIPTION: CT - Chest For Pe Angio - 03/06/2023 5:59 pm CLINICAL HISTORY: Chest pain. CHEST PAIN COMPARISON: Chest For Pe Angio dated 12/01/2021 TECHNIQUE: CT angiogram of the pulmonary arteries was performed with MIP. All CT scans are performed using dose optimization technique as appropriate and may include automated exposure control or mA/KV adjustment according to patient size. FINDINGS: No evidence of pulmonary thromboembolism. No acute aortic finding demonstrated. There is mild atelectasis in the left lung base. The lungs are otherwise clear. No significant pericardial or pleural fluid. Mild diffuse thickening of the esophagus. No concerning bony finding. IMPRESSION: No evidence of pulmonary thromboembolism. Mild diffuse thickening of esophagus could indicate esophagitis.
[2023-03-06 18:12] LABS: Blood Morphology Comment NOT SEEN (NOT SEEN); Platelet Estimate INCR
--- NOTE | 2023-03-06 18:12 | ER ---
Nurse's Notes [facility] Name: Rachel Walker Age: 77 yrs Sex: Female : 1945 Arrival Date: 03/06/2023 Time: 16:45 Bed 4 Private MD: Jose Antonio Falcon C Diagnosis: Chest pain, unspecified;Vomiting;Elevated white blood cell count;Dehydration;Acute gastritis;Duodenitis;Abdominal pain, unspecified-jejuneal inflamation Presentation: 03/06 16:55 Chief complaint: Patient states: Pt had left knee surgery one week ago and has been rs5 having abdominal pain, nausea, vomiting, since. Pt started having chest tightness one hour ago. 16:55 Coronavirus screen: At this time, the client does not indicate any symptoms associated rs5 with coronavirus-19. Ebola Screen: No symptoms or risks identified at this time. Initial Sepsis Screen: Does the patient meet any 2 criteria? No. Patient's initial sepsis screen is negative. Does the patient have a suspected source of infection? No. Patient's initial sepsis screen is negative. Risk Assessment: Do you want to hurt yourself or someone else? Patient reports no desire to harm self or others. Onset of symptoms was March 06, 2023. 16:55 Method Of Arrival: Wheelchair rs5 16:55 Acuity: MAYA 3 rs5 Historical: - Allergies: 16:55 Codeine; rs5 16:55 PENICILLINS; rs5 - PMHx: 16:55 BREAST CA; Depression; Hypothyroidism; rs5 - PSHx: 16:55 left knee; ligaments removed; Mastoidectomy; Right hip; rs5 - Immunization history:: Adult Immunizations unknown. - Social history:: Smoking status: Patient denies any tobacco usage or history of. - Family history:: not pertinent. Screenin:55 [facility] ED Fall Risk Assessment (Adult) History of falling in the last 3 months, rs5 including since admission No falls in past 3 months (0 pts) Confusion or Disorientation No (0 pts) Intoxicated or Sedated No (0 pts) Impaired Gait No (0 pts) Mobility Assist Device Used No (0 pt) Altered Elimination No (0 pt) Score/Fall Risk Level 0 - 2 = Low Risk Oriented to surroundings, Maintained a safe environment. 16:55 Abuse screen: Denies threats or abuse. Nutritional screening: No deficits noted. rs5 Tuberculosis screening: No symptoms or risk factors identified. Assessment: 16:55 General: Appears in no apparent distress. uncomfortable, Behavior is calm, cooperative. rs5 Pain: Complains of pain in lower abdomen bilat Pain does not radiate. Pain currently is 5 out of 10 on a pain scale. Quality of pain is described as aching, Pain began one week ago Is continuous. Neuro: Level of Consciousness is awake, alert, obeys commands, Oriented to person, place, time, situation. Cardiovascular: Heart tones S1 S2 present Rhythm is regular. Respiratory: Airway is patent Respiratory effort is even, unlabored, Respiratory pattern is regular, symmetrical, Breath sounds are clear bilaterally. GI: Abdomen is round non-distended, Bowel sounds present X 4 quads. Abd is soft and non tender X 4 quads. Reports nausea, Pain is 5 out of 10 on a pain scale. vomiting. : No signs and/or symptoms were reported regarding the genitourinary system. EENT: No signs and/or symptoms were reported regarding the EENT system. Derm: Skin is intact, Skin is dry, Skin is normal, Skin temperature is warm. 16:55 Musculoskeletal: Range of motion: intact in all extremities. rs5 17:10 Reassessment: Patient and/or family updated on plan of care and expected duration. Pain rs5 level reassessed. Patient is alert, oriented x 3, equal unlabored respirations, skin warm/dry/pink. Patient denies pain at this time. Patient states feeling better. Patient states symptoms have improved. 18:57 Reassessment: No changes from previously documented assessment. rs5 21:02 Reassessment: notified Dr. Baptiste of vital signs. ha1 21:10 General: Appears uncomfortable, Behavior is calm, cooperative. Pain: Complains of pain ha1 in left leg and chest Pain does not radiate. Pain currently is 7 out of 10 on a pain scale. Quality of pain is described as aching, pressure, Pain began suddenly. Neuro: Level of Consciousness is awake, alert, obeys commands, Oriented to person, place, time, situation. Cardiovascular: Heart tones S1 S2 present Capillary refill < 3 seconds. Respiratory: Airway is patent Respiratory effort is even, unlabored, Respiratory pattern is regular, symmetrical. GI: Abdomen is round non-distended, Reports nausea. Derm: Skin is pale. Musculoskeletal: Circulation, motion, and sensation intact. 21:10 Reassessment: ADMISSION PENDING DUE TO LOW BLOOD PRESSURE. ha1 22:10 Reassessment: Patient and/or family updated on plan of care and expected duration. Pain ha1 level reassessed. Patient is alert, oriented x 3, equal unlabored respirations, skin warm/dry/pink. 23:10 Reassessment: Patient and/or family updated on plan of care and expected duration. Pain ha1 level reassessed. Patient is alert, oriented x 3, equal unlabored respirations, skin warm/dry/pink. 23:20 Reassessment: REPORT GIVEN TO BELINDA BAILEY. ha1 Vital Signs: 16:55 BP 142 / 97; Pulse 80; Resp 17; Pulse Ox 99% on R/A; rs5 21:00 BP 85 / 43; Pulse 98; Resp 17 S; Pulse Ox 95% on R/A; ha1 21:10 BP 94 / 49; Pulse 67; Resp 17 S; Pulse Ox 95% on R/A; ha1 21:40 BP 87 / 49; Pulse 97; Resp 17 S; Pulse Ox 95% on R/A; ha1 22:48 BP 100 / 76; Pulse 96; Resp 17 S; Pulse Ox 95% on R/A; ha1 22:50 BP 102 / 87; Pulse 97; Resp 17 S; Temp 97.6; Pulse Ox 95% on R/A; ha1 23:20 BP 97 / 67; Pulse 95; Resp 17 S; Pulse Ox 95% on R/A; ha1 ED Course: 16:46 Patient arrived in ED. rg4 16:46 Jose Antonio Falcon MD is Private Physician. rg4 16:46 Nahum Krause MD is Attending Physician. ama 16:55 Patient has correct armband on for positive identification. Bed in low position. Call rs5 light in reach. Side rails up X2. 17:00 Inserted saline lock: 20 gauge in left antecubital area, using aseptic technique. Blood rs5 collected. 17:14 XRAY Chest (1 view) In Process Unspecified. EDMS 17:29 Neal Baldwin, BELINDA is Primary Nurse. rs5 17:32 Triage completed. rs5 17:46 US Extremity Venous W Compression Camacho In Process Unspecified. EDMS 18:01 CT Chest For PE Angio In Process Unspecified. EDMS 18:01 CT Abd/Pelvis - IV Contrast Only In Process Unspecified. EDMS 18:09 Jose Antonio Falcon MD is Hospitalizing Provider. ama 19:39 Inserted saline lock: 20 gauge in right antecubital area, using aseptic technique. ls5 21:00 Arm band placed on right wrist. ha1 21:05 Report received from BELINDA MARTINS. ha1 22:04 Primary Nurse role handed off by Neal Baldwin RN wm 22:30 Inserted saline lock: 22 gauge in right wrist, using aseptic technique. la4 12 00:14 No provider procedures requiring assistance completed. Patient admitted, IV remains in ha1 place. 00:15 Provided Education on: NEED FOR ADMIT. ha1 Administered Medications: 03/06 17:15 Drug: Aspirin PO Chewable Tablet 162 mg PO once Route: PO; rs5 17:30 Follow up: Response: No adverse reaction rs5 17:15 Drug: Ondansetron IVP 4 mg IVP once; over 2 minutes Route: IVP; Site: left antecubital; rs5 17:30 Follow up: Response: No adverse reaction rs5 17:15 Drug: Famotidine IVP 20 mg IVP once; dilute with 10 mL 0.9% NaCl; give over 2 minutes rs5 Route: IVP; Site: left antecubital; 17:30 Follow up: Response: No adverse reaction rs5 17:15 Drug: NS 0.9% IV 1000 ml IV at 1 bolus Per protocol; 1000 mL bolus Route: IV; Rate: 1 rs5 bolus; Site: left antecubital; 17:40 Follow up: Response: No adverse reaction rs5 17:15 Drug: NS 0.9% IV 1000 ml IV at 125 ml/hr continuous Route: IV; Rate: 125 ml/hr; Site: rs5 left antecubital; 17:30 Follow up: Response: No adverse reaction rs5 18:32 CANCELLED (Duplicate Order): [id number] mg 100 ml IVPB once over 60 mins ama 21:00 Drug: NS 0.9% IV 1000 ml IV at 1 bolus Per protocol; 1000 mL bolus Route: IV; Rate: 1 ha1 bolus; Site: left antecubital; 21:40 Drug: Pantoprazole IVP 80 mg IVP once Route: IVP; Site: left antecubital; ha1 22:00 Follow up: Response: No adverse reaction ha1 21:47 Drug: metroNIDAZOLE IVPB 500 mg 100 ml IVPB at 200 ml/hr once over 30 mins Volume: 100 ha1 ml; Route: IVPB; Rate: 200 ml/hr; Infused Over: 30 mins; Site: right antecubital; 22:20 Follow up: Response: No adverse reaction; IV Status: Completed infusion ha1 21:47 Drug: Banana Bag - (Multivitamin IV 1 amp, NS 0.9% IV 1000 ml, Thiamine IV 100 mg, ha1 foLIC Acid IVPB 1 mg) IV at 125 ml/hr once Route: IV; Rate: 125 ml/hr; Site: left antecubital; 03/07 00:18 Follow up: Response: No adverse reaction; IV Status: Infusion continued; IV Intake: ha1 450ml 03/06 22:07 Drug: Rocephin IV 1 grams IV at per protocol once; Given slow IV push per pharmacy ha1 instructions Route: IV; Rate: per protocol; Site: left antecubital; 22:15 Drug: Albumin IVPB 25 grams 100 ml IVPB once; (Note: Albumin 25% concentration) Volume: ha1 100 ml; Route: IVPB; Site: left antecubital; 23:00 Follow up: Response: No adverse reaction; Blood pressure is elevated; IV Status: ha1 Completed infusion 22:31 Drug: Ciprofloxacin IVPB 400 mg 200 ml IVPB once over 60 mins Volume: 200 ml; Route: ha1 IVPB; Infused Over: 60 mins; Site: right hand; 23:30 Follow up: Response: No adverse reaction; IV Status: Completed infusion ha1 22:31 Drug: Albumin IVPB 25 grams 100 ml IVPB once; (Note: Albumin 25% concentration) Volume: ha1 100 ml; Route: IVPB; Site: left antecubital; 23:00 Follow up: Response: No adverse reaction; IV Status: Completed infusion ha1 22:31 Drug: NS 0.9% IV 500 ml IV at bolus once Route: IV; Rate: bolus; Site: left antecubital;ha1 23:30 Follow up: Response: No adverse reaction; IV Status: Completed infusion; IV Intake: ha1 500ml Medication: 23:23 VIS not applicable for this client. ha1 Intake: 23:30 IV: 500ml; Total: 500ml. ha1 03/07 00:18 IV: 450ml; Total: 950ml. ha1 Outcome: 03/06 18:11 Decision to Hospitalize by Provider. [facility] 03/07 00:14 Admitted to Tele accompanied by tech, via stretcher, with chart, Report called to [facility] BELINDA BAILEY Condition: stable Discharge instructions given to patient, family, Instructed on the need for admit, Demonstrated understanding of instructions, 00:19 Patient left the ED. [facility] Signatures: Dispatcher [employer] EDNahum Sandra MD MD cha Garcia, Rubi rg4 Ju Valentine Heidy, RN RN 1 Neal Baldwin RN RN rs5 Gerardo Shrestha 5 Evelin Siddiqui RN RN la4 Corrections: (The following items were deleted from the chart) 03/06 17:33 16:55 PSHx: left knee; rs5 rs5 17:33 16:55 PSHx: left knee; rs5 rs5 23:33 22:50 BP 102 / 87; Pulse 97bpm; Resp 17bpm; Spontaneous; Pulse Ox 95% RA; ha1 ha1
--- NOTE | 2023-03-06 18:12 | EDPHYS ---
Physician Documentation [facility] Name: Rachel Walker Age: 77 yrs Sex: Female : 1945 Arrival Date: 03/06/2023 Time: 16:45 Bed 4 Private MD: Jose Antonio Falcon C ED Physician Nahum Krause HPI: 03/06 17:02 This 77 yrs old Female presents to ER via Unassigned with complaints of ama Nausea, Chest Pain. 17:02 The patient presents to the emergency department with nausea, vomiting. ama Historical: - Allergies: 16:55 Codeine; rs5 16:55 PENICILLINS; rs5 - PMHx: 16:55 BREAST CA; Depression; Hypothyroidism; rs5 - PSHx: 16:55 left knee; ligaments removed; Mastoidectomy; Right hip; rs5 - Immunization history:: Adult Immunizations unknown. - Social history:: Smoking status: Patient denies any tobacco usage or history of. - Family history:: not pertinent. ROS: 17:04 Constitutional: Negative for fever, chills, and weight loss, Eyes: Negative for injury, ama pain, redness, and discharge, ENT: Negative for injury, pain, and discharge, Neck: Negative for injury, pain, and swelling, Respiratory: Negative for shortness of breath, cough, wheezing, and pleuritic chest pain, Abdomen/GI: Negative for abdominal pain, nausea, vomiting, diarrhea, and constipation, Back: Negative for injury and pain, : Negative for injury, bleeding, discharge, and swelling, Skin: Negative for injury, rash, and discoloration, Neuro: Negative for headache, weakness, numbness, tingling, and seizure, Psych: Negative for depression, anxiety, suicide ideation, homicidal ideation, and hallucinations, Allergy/Immunology: Negative for hives, rash, and allergies, Endocrine: Negative for neck swelling, polydipsia, polyuria, polyphagia, and marked weight changes, Hematologic/Lymphatic: Negative for swollen nodes, abnormal bleeding, and unusual bruising, 17:04 Cardiovascular: Positive for chest pain, of the chest, 17:04 Abdomen/GI: Positive for nausea and vomiting, 17:04 MS/extremity: Positive for pain, of the left leg, Exam: 17:04 Constitutional: This is a well developed, well nourished patient who is awake, alert, ama and in no acute distress. Head/Face: Normocephalic, atraumatic. Eyes: Pupils equal round and reactive to light, extra-ocular motions intact. Lids and lashes normal. Conjunctiva and sclera are non-icteric and not injected. Cornea within normal limits. Periorbital areas with no swelling, redness, or edema. ENT: Nares patent. No nasal discharge, no septal abnormalities noted. Tympanic membranes are normal and external auditory canals are clear. Oropharynx with no redness, swelling, or masses, exudates, or evidence of obstruction, uvula midline. Mucous membranes moist. Neck: Trachea midline, no thyromegaly or masses palpated, and no cervical lymphadenopathy. Supple, full range of motion without nuchal rigidity, or vertebral point tenderness. No Meningismus. Chest/axilla: Normal chest wall appearance and motion. Nontender with no deformity. No lesions are appreciated. Cardiovascular: Regular rate and rhythm with a normal S1 and S2. No gallops, murmurs, or rubs. Normal PMI, no JVD. No pulse deficits. Respiratory: Lungs have equal breath sounds bilaterally, clear to auscultation and percussion. No rales, rhonchi or wheezes noted. No increased work of breathing, no retractions or nasal flaring. Back: No spinal tenderness. No costovertebral tenderness. Full range of motion. Female : Normal external genitalia. Skin: Warm, dry with normal turgor. Normal color with no rashes, no lesions, and no evidence of cellulitis. MS/ Extremity: Pulses equal, no cyanosis. Neurovascular intact. Full, normal range of motion. Neuro: Awake and alert, GCS 15, oriented to person, place, time, and situation. Cranial nerves II-XII grossly intact. Motor strength 5/5 in all extremities. Sensory grossly intact. Cerebellar exam normal. Normal gait. Psych: Awake, alert, with orientation to person, place and time. Behavior, mood, and affect are within normal limits. 17:04 ECG was reviewed by the Attending Physician. 17:04 Abdomen/GI: Inspection: abdomen appears normal, Bowel sounds: normal, Palpation: mild abdominal tenderness, Liver: no appreciated palpable abnormalities, Hernia: not appreciated, Vital Signs: 16:55 BP 142 / 97; Pulse 80; Resp 17; Pulse Ox 99% on R/A; rs5 21:00 BP 85 / 43; Pulse 98; Resp 17 S; Pulse Ox 95% on R/A; ha1 21:10 BP 94 / 49; Pulse 67; Resp 17 S; Pulse Ox 95% on R/A; ha1 21:40 BP 87 / 49; Pulse 97; Resp 17 S; Pulse Ox 95% on R/A; ha1 22:48 BP 100 / 76; Pulse 96; Resp 17 S; Pulse Ox 95% on R/A; ha1 22:50 BP 102 / 87; Pulse 97; Resp 17 S; Temp 97.6; Pulse Ox 95% on R/A; ha1 23:20 BP 97 / 67; Pulse 95; Resp 17 S; Pulse Ox 95% on R/A; ha1 MDM: 16:46 Patient medically screened. ama 17:09 Differential diagnosis: Nonspecific abd pain, gastritis, pancreatitis, viral ama gastroenteritis, gastroenteritis. Data reviewed: vital signs, nurses notes, lab test result(s), EKG, radiologic studies, CT scan, plain films. Consideration of Admission/Observation Patient was admitted/placed on observation. Escalation of care including admission/observation considered. I considered the following discharge prescriptions or medication management in the emergency department Medications were administered in the Emergency Department. See MAR. Test considered but Not performed: Ultrasound NO ABD USG. Care significantly affected by the following chronic conditions: Hypertension. 03/06 16:47 Order name: Basic Metabolic Panel; Complete Time: 17:55 [facility] 03/06 16:47 Order name: CBC with Diff; Complete Time: 18:27 [facility] 03/06 16:47 Order name: LFT's; Complete Time: 17:55 [facility] 03/06 16:47 Order name: Magnesium; Complete Time: 17:55 [facility] 03/06 16:47 Order name: NT PRO-BNP; Complete Time: 17:55 [facility] 03/06 16:47 Order name: PT-INR; Complete Time: 17:55 [facility] 03/06 16:47 Order name: Troponin HS; Complete Time: 17:55 [facility] 03/06 16:47 Order name: Lipase; Complete Time: 17:55 [facility] 03/06 16:47 Order name: Urinalysis w/ reflexes [facility] 03/06 17:58 Order name: Blood Culture Adult (2) [facility] 03/06 17:58 Order name: Lactate w/ 2H reflex if indic. [facility] 03/06 18:13 Order name: Manual Differential; Complete Time: 18:27 EDMS 03/06 16:47 Order name: XRAY Chest (1 view); Complete Time: 17:55 [facility] 03/06 17:02 Order name: US Extremity Venous W Compression Camacho; Complete Time: 17:55 [facility] 03/06 17:02 Order name: CT Chest For PE Angio; Complete Time: 18:27 [facility] 03/06 17:04 Order name: CT Abd/Pelvis - IV Contrast Only; Complete Time: 18:27 [facility] 03/06 16:47 Order name: EKG; Complete Time: 16:48 [facility] 03/06 16:47 Order name: Cardiac monitoring; Complete Time: 17:30 [facility] 03/06 16:47 Order name: EKG - Nurse/Tech; Complete Time: 17:30 [facility] 03/06 16:47 Order name: IV Saline Lock; Complete Time: 17:30 [facility] 03/06 16:47 Order name: Labs collected and sent; Complete Time: 17:30 [facility] 03/06 16:47 Order name: O2 Per Protocol; Complete Time: 17:30 [facility] 03/06 16:47 Order name: O2 Sat Monitoring; Complete Time: 17:30 [facility] 03/06 19:28 Order name: IV Saline Lock - Large Bore; Complete Time: 19:38 [facility] EC:04 Rate is 82 beats/min. Rhythm is regular. QRS Freedom is Normal. FL interval is normal. QRS ama interval is normal. QT interval is normal. No Q waves. T waves are Normal. No ST changes noted. Clinical impression: NSR w/ Non-specific ST/T Changes and No evidence of ischemia. Interpreted by me. Reviewed by me. Administered Medications: 17:15 Drug: Aspirin PO Chewable Tablet 162 mg PO once Route: PO; rs5 17:30 Follow up: Response: No adverse reaction rs5 17:15 Drug: Ondansetron IVP 4 mg IVP once; over 2 minutes Route: IVP; Site: left antecubital; rs5 17:30 Follow up: Response: No adverse reaction rs5 17:15 Drug: Famotidine IVP 20 mg IVP once; dilute with 10 mL 0.9% NaCl; give over 2 minutes rs5 Route: IVP; Site: left antecubital; 17:30 Follow up: Response: No adverse reaction rs5 17:15 Drug: NS 0.9% IV 1000 ml IV at 1 bolus Per protocol; 1000 mL bolus Route: IV; Rate: 1 rs5 bolus; Site: left antecubital; 17:40 Follow up: Response: No adverse reaction rs5 17:15 Drug: NS 0.9% IV 1000 ml IV at 125 ml/hr continuous Route: IV; Rate: 125 ml/hr; Site: rs5 left antecubital; 17:30 Follow up: Response: No adverse reaction rs5 18:32 CANCELLED (Duplicate Order): [id number] mg 100 ml IVPB once over 60 mins ama 21:00 Drug: NS 0.9% IV 1000 ml IV at 1 bolus Per protocol; 1000 mL bolus Route: IV; Rate: 1 ha1 bolus; Site: left antecubital; 21:40 Drug: Pantoprazole IVP 80 mg IVP once Route: IVP; Site: left antecubital; ha1 22:00 Follow up: Response: No adverse reaction ha1 21:47 Drug: metroNIDAZOLE IVPB 500 mg 100 ml IVPB at 200 ml/hr once over 30 mins Volume: 100 ha1 ml; Route: IVPB; Rate: 200 ml/hr; Infused Over: 30 mins; Site: right antecubital; 22:20 Follow up: Response: No adverse reaction; IV Status: Completed infusion ha1 21:47 Drug: Banana Bag - (Multivitamin IV 1 amp, NS 0.9% IV 1000 ml, Thiamine IV 100 mg, ha1 foLIC Acid IVPB 1 mg) IV at 125 ml/hr once Route: IV; Rate: 125 ml/hr; Site: left antecubital; 03/07 00:18 Follow up: Response: No adverse reaction; IV Status: Infusion continued; IV Intake: ha1 450ml 03/06 22:07 Drug: Rocephin IV 1 grams IV at per protocol once; Given slow IV push per pharmacy ha1 instructions Route: IV; Rate: per protocol; Site: left antecubital; 22:15 Drug: Albumin IVPB 25 grams 100 ml IVPB once; (Note: Albumin 25% concentration) Volume: ha1 100 ml; Route: IVPB; Site: left antecubital; 23:00 Follow up: Response: No adverse reaction; Blood pressure is elevated; IV Status: ha1 Completed infusion 22:31 Drug: Ciprofloxacin IVPB 400 mg 200 ml IVPB once over 60 mins Volume: 200 ml; Route: ha1 IVPB; Infused Over: 60 mins; Site: right hand; 23:30 Follow up: Response: No adverse reaction; IV Status: Completed infusion 1 22:31 Drug: Albumin IVPB 25 grams 100 ml IVPB once; (Note: Albumin 25% concentration) Volume: ha1 100 ml; Route: IVPB; Site: left antecubital; 23:00 Follow up: Response: No adverse reaction; IV Status: Completed infusion 1 22:31 Drug: NS 0.9% IV 500 ml IV at bolus once Route: IV; Rate: bolus; Site: left antecubital;ha1 23:30 Follow up: Response: No adverse reaction; IV Status: Completed infusion; IV Intake: ha1 500ml Disposition Summary: 03/06/23 18:11 Hospitalization Ordered Notes: Hospitalization Status: Inpatient Admission ama Provider: Jose Antonio Falcon cha [facility] ama Condition: Stable ama Problem: new ama Symptoms: have improved ama Bed/Room Type: Standard ama Room Assignment: 410(03/06/23 18:27) bd Diagnosis - Chest pain, unspecified ama - Vomiting ama - Elevated white blood cell count ama - Dehydration ama - Acute gastritis ama - Duodenitis ama - Abdominal pain, unspecified - jejuneal inflamation ama Forms: - Medication Reconciliation Form ama - SBAR form ama - Leadership Thank You Letter ama Signatures: Dispatcher [employer] Gavi Mercedes Corey, MD MD cha Prokisch, Amanda, RN RN ap3 Glenna Leyva RN RN ha1 Neal Baldwin RN RN rs5 Emile Phipps MD MD sp4 Corrections: (The following items were deleted from the chart) 17:33 16:55 PSHx: left knee; rs5 rs5 17:33 16:55 PSHx: left knee; rs5 rs5 18:27 18:11 ama ap3 18:27 18:27 410 ap3 bd 18:32 18:29 levofloxacin IVPB 500 mg 100 ml IVPB once over 60 mins ordered. ama ama
--- NOTE | 2023-03-06 18:13 | RAD REPORT ---
EXAM DESCRIPTION: CTAbdomen Pelvis W Contrast - 03/06/2023 5:59 pm CLINICAL HISTORY: Abdominal pain. ABD PAIN COMPARISON: Abdomen Pelvis W Contrast dated 12/01/2021; Abdomen Pelvis W Contrast dated 07/02/2018 ; Chest For Pe Angio dated 03/06/2023 TECHNIQUE: Biphasic CT imaging of the abdomen and pelvis was performed with 100 ml non-ionic IV cont rast. All CT scans are performed using dose optimization technique as appropriate and may include automated exposure control or mA/KV adjustment according to patient size. FINDINGS: Mild linear atelectasis is present in the left lung base.Small hiatal hernia with mild thi ckening of the distal esophagus. The liver, spleen, pancreas, adrenal glands and kidneys are within normal limits. There is dilatation and enhancement seen of the stomach, duodenal C-loop at multiple loops of jejunum . Transverse duodenum appears dilated to 3.7 cm. Mild free fluid is seen in the right pericolic gutte r and pelvis. No bowel obstruction or free air. The appendix is not identified as a discrete structur e, however, no secondary findings of appendicitis are identified. No evidence of significant lymphad enopathy. No suspicious bony findings. IMPRESSION: Moderately severe inflammatory changes are seen involving predominately the distal stoma ch, duodenum and jejunum. This is a nonspecific finding but would be favored to be infectious in etio logy. Inflammatory bowel disease or bowel ischemia would secondary possibility. No free air, abscess or bowel obstruction.
[2023-03-06 19:12] LABS: Specific Gravity 1.013 (1.005-1.030); Urine Bilirubin NEGATIVE (Negative); Urine Blood Negative (Negative); Urine Clarity Clear (Clear); Urine Color Colorless (Yellow); Urine Glucose NEGATIVE (Negative); Urine Protein NEGATIVE (Negative); Urine Urobilinogen Normal (Normal); Urine pH 6.5 (5.0-7.0)
[2023-03-06] MEDS ORDERED: PANTOPRAZOLE 40 MG INJ ONE (21:26)
[2023-03-06] MEDS ORDERED: THIAMINE 200 MG/2 ML INJ ONE (21:27)
[2023-03-06] MEDS ORDERED: FOLIC ACID 5 MG/ML VIAL ONE (21:28)
[2023-03-06] MEDS ORDERED: NA CHLORIDE 0.9% 1,000 ML ONE (21:28)
[2023-03-06] MEDS ORDERED: METRONIDAZOLE 500mg IVPB 500 MG/100 ML BAG IV ONE (21:29)
[2023-03-06] MEDS ORDERED: MULTIVITAMINS 10 ML VIAL (INJ) IV ONE (21:32)
[2023-03-06] MEDS ORDERED: CEFTRIAXONE 1000 MG/VIAL ONE (22:09)
[2023-03-06] MEDS ORDERED: CIPROFLOXACIN 400mg IV 400 MG/200 ML BAG IV ONE (22:10)
[2023-03-06] MEDS ORDERED: ALBUMIN HUMAN 25% 200 ML IV ONE (22:10)
[2023-03-06] MEDS ORDERED: NA CHLORIDE 0.9% 500 ML ONE (22:10)
[2023-03-07 00:34] VITALS: BMI 19.8
[2023-03-07] MEDS ORDERED: ACETAMINOPHEN 500 MG TAB PO PRN (00:44)
[2023-03-07] MEDS ORDERED: NA CHLORIDE 0.9% 1,000 ML IV SCH (00:44)
[2023-03-07] MEDS ORDERED: SODIUM CHLORIDE 0.9% 10ML INJ IV PRN (00:44)
[2023-03-07] MEDS: METRONIDAZOLE 500mg IVPB 500 MG/100 ML BAG IV SCH ×5 (01:13→23:52)
[2023-03-07] MEDS: PANTOPRAZOLE 40 MG INJ IVP SCH ×3 (01:13→21:20)
[2023-03-07] MEDS: ONDANSETRON 4 MG/2 ML VIAL IV PRN ×4 (01:14→21:21)
[2023-03-07] MEDS: MORPHINE 2 MG/ML SYR IV PRN ×5 (01:14→21:21)
[2023-03-07 01:54] LABS: Absolute Lymphocytes (CBC) 1.8 K/uL (0.7-4.9); Hematocrit 25.3 % (36.0-45.0); Lymphocytes % 11.6 % (15.3-44.8); MCV 94.3 fL (80-100); MPV 8.1 fL (7.6-11.3); Platelets 269 thou/uL (152-406); RBC Red Blood Cell Count 2.68 M/uL (3.86-4.86)
--- NOTE | 2023-03-07 06:38 | HP ---
Date of Admission: 03/06/2023 Chief Complaint: Nausea, vomiting, diarrhea, and chest pain. History Of Present Illness: This is a 77-year-old pleasant female patient who had left knee replacem ent surgery done [address] Lutz, here at [facility] in [place]. Postoperative ly, the patient was doing fine. She was sent home with pain medication as well as doxycycline, that she has been taking those medications as prescribed. As of last week on Sunday, she started to have nausea, vomiting, and diarrhea and the symptoms continued to get worse over the period of last few da ys to the extent that she is not able to keep any food or liquids down in her stomach. Denies any fe diandra or chills. She has some vague abdominal soreness and today she started complaining of some vague chest pain associated with all these other symptoms, so daughter brought her to emergency room. Aft er she was evaluated, she was admitted to the hospital. I saw her in the emergency room. Allergies: TO PENICILLIN, CAUSING ANAPHYLACTIC REACTION AND CODEINE, CAUSING RASH. Medications: Atorvastatin 40 mg daily, bupropion, Seroquel, zonisamide, and levothyroxine 50 mcg hieu ly. Review of Systems: GI: As mentioned above. All other systems reviewed and negative. Past Medical History: Significant for hypothyroidism, impaired fasting glucose, COPD, mixed hyperlip idemia, right breast cancer, anxiety, depression, osteoporosis. Took Evenity from November 2021 to November 2022. Past Surgical History: Left knee replacement surgery 1 week ago; lumpectomy for breast cancer in [facility], December 06, 2010; appendectomy; shoulder surgery on the right shoulder. Family History: Father had heart disease. Mother had heart disease and stroke. Sister had stroke. Social History: Prior history of smoking. Use of alcohol, occasional. Physical Examination: Vital Signs: Height 4 feet inches, weight pounds, temperature , puls e , respiratory rate , blood pressure , oxygen saturation . General: Awake, alert, oriented, not in distress. HEENT: Head atraumatic, normocephalic. Conjunctivae nonerythematous. Sclerae white. Mouth, no thr ush or edema noted. Ears/Nose, no mass, lesion, discharge noted. Neck: Supple. No JVD, lymph nodes, bruit, thyromegaly noted. Lungs: Bilateral good equal air entry. Clear to auscultation. No rhonchi. No rales. Heart: Normal heart sounds, no murmur or gallop. Abdomen: Very vague minimal abdominal tenderness all across mid abdomen. No rebound tenderness. Sebastien wel sounds normoactive. No hepatosplenomegaly. No bruit. Extremities: Left knee surgical scar noted with clear transparent dressing covering it. No evidence of any swelling, redness, discharge, or bleeding. Skin: No rash, ulcer, cellulitis. Lymphatics: No lymph node enlargement in neck, supraclavicular, infraclavicular region. Neuro: No focal neurological deficit. Chest: Unremarkable. External Genitalia: Deferred. Rectal: Deferred. Laboratory Data: White count 21.4, hemoglobin 11.4, platelets 408. Sodium 132, potassium 3.8, chlor velvet 98, bicarb 26, BUN 25, creatinine 0.9, and glucose 137. Liver function test unremarkable. Lipas e 13. ProBNP 739. Troponin 29.7. The patient's CT chest PE protocol was negative for pulmonary emb olism. CAT scan of abdomen and pelvis shows significant thickening of the mucosa involving stomach a nd upper intestine. No evidence of bowel obstruction or free air. Impression: 1.Acute gastroenteritis. 2.Volume depletion. 3.Hypothyroidism. 4.Impaired fasting glucose. 5.Right breast cancer. 6.Anxiety. 7.Depression. 8.Osteoporosis. 9.Mixed hyperlipidemia. Plan: We will go ahead and admit the patient to hospital for further evaluation and management of th is problem. The patient is appropriate for inpatient and [facility] We will go ahead and start the patient on Protonix for possible gastritis type of problem along w ith diet. We will go ahead and start empiric antibiotics, Cipro and Flagyl for gastroenteritis. Maximo quintero director of labor and delivery. We will go ahead and give her diet as she tolerates and we will hold some o f the psychiatric medications due to interaction with Cipro. DVT prophylaxis will be given per order . Pain medication will be given per order if she needs it. IV fluid will be given. We will repeat blood work tomorrow. Details of plan of treatment discussed with the patient and daughter. OMID/ALFA Voice ID: [id number]
--- NOTE | 2023-03-07 07:51 | RAD REPORT ---
EXAM DESCRIPTION: RAD - Chest Single View - 03/07/2023 6:17 am CLINICAL HISTORY: Chest Pain Chest pain. COMPARISON: Chest Single View dated 03/06/2023; Chest Single View dated 03/01/2023; Chest Single Vie w dated 12/01/2021; Chest Single View dated 05/05/2021; Chest For Pe Angio dated 03/06/2023 FINDINGS: Portable technique limits examination quality. The lungs are grossly clear. The heart is upper limit of normal in size. No displaced fractures. IMPRESSION: No acute intrathoracic process suspected.
[2023-03-07] MEDS: D5 0.45 NS 1,000 ML IV SCH (08:55)
[2023-03-07] MEDS: CIPROFLOXACIN 400mg IV 400 MG/200 ML BAG IV SCH ×2 (08:56→21:18)
[2023-03-07] MEDS: ENOXAPARIN 30 MG/0.3 ML SQ SCH (08:56)
[2023-03-07] MEDS: BUPROPION HCL XL 150 MG TAB PO SCH (10:43)
--- NOTE | 2023-03-07 12:29 | P.CNS ---
Date of Consult: 03/06/23 Reason for Consult: chest pain Requesting Physician: Nahum Krasue Primary Care Provider: Dr. Falcon Chief Complaint: knee pain, n/v History of Present Illness: Ms. Walker is a 77 yo with a history of recent left knee replacement. She began with nausea and vomiting and presented to the ED yesterday. Ms. Walker denies chest pain, troponin trend negative. She had an ultrasound of both lower extremities and a CT chest in the ED, both with negative results. Allergies codeine Allergy (Verified 06/10/21 16:17) Hives/Rash Penicillins Allergy (Verified 06/10/21 16:16) Anaphylaxis Home medications list reviewed: Yes Home Medications: Calcium Carbonate [Oscal] 1,000 mg PO DAILY 06/10/21 Levothyroxine [Synthroid*] 0.05 mg PO DAILY 06/10/21 Quetiapine Fumarate [Seroquel] 200 mg PO BEDTIME 06/10/21 Zonisamide 1 cap PO BID 06/10/21 buPROPion HCl [Wellbutrin Sr] 150 mg PO DAILY 06/10/21 Atorvastatin Calcium [Lipitor] 40 mg PO BEDTIME 03/07/23 - Past Medical/Surgical History Diabetic: No -: Depression, anxiety -: hypothyroidism -: osteoporosis -: HLD -: left knee replacement - Family History Father Medical History: Heart disease Notes: passed at 78 Mother Medical History: Heart disease Notes: passed at 82 - Social History Smoking Status: Unknown if ever smoked Alcohol use: Yes CD- Drugs: Yes Caffeine use: Yes Place of Residence: Home Review of Systems 10-point ROS is otherwise unremarkable Gastrointestinal: Nausea, Vomiting Musculoskeletal: Other (left knee pain) Physical Examination Temp Pulse Resp BP Pulse Ox 99.4 F 78 16 115/56 L 97 03/07/23 08:00 03/07/23 08:00 03/07/23 11:17 03/07/23 08:00 03/07/23 08:00 General: Alert, In no apparent distress HEENT: Atraumatic, Normocephalic, PERRLA Neck: Supple, 2+ carotid pulse no bruit Respiratory: Clear to auscultation bilaterally, Normal air movement Capillary refill: <2 Seconds Gastrointestinal: Normal bowel sounds, Soft and benign Musculoskeletal: No clubbing Integumentary: No rashes Neurological: Normal speech, Normal tone Lymphatics: No axilla or inguinal lymphadenopathy External genitalia: Deferred Rectal: Deferred Laboratory Data (last 24 hrs) 03/06/23 03/06/23 03/06/23 17:00 17:00 17:00 WBC 21.50 H Hgb 11.4 L Hct 33.9 L Plt Count 408 H PT 12.4 INR 1.13 Sodium 132 L Potassium 3.8 BUN 25 H Creatinine 0.92 Glucose 137 H Magnesium 1.9 Total Bilirubin 0.5 AST 5 L ALT 16 Alkaline Phosphatase 106 Lipase 13 - Problems (1) Chest pain Current Visit: Yes Status: Acute Plan: Pain resolved prior to admission trend troponins telemetry outpatient NM stress test recommended cardiology will sign off (2) Hyperlipemia Current Visit: Yes Status: Acute Plan: continue home medications
--- NOTE | 2023-03-07 12:49 | EKG ---
Test Date: 2023-03-07 Test Time: 08:45:20 Bryologist: NEREYDA MEASUREMENT RESULTS: Intervals: Rate: 70 NM: 130 QRSD: 78 QT: 410 QTc: 442 [place]: P: 56 NM: 130 QRS: 50 T: 67 INTERPRETIVE STATEMENTS: Normal sinus rhythm Low voltage QRS Borderline ECG Compared to ECG 03/06/2023 17:03:12 Low QRS voltage now present Sinus arrhythmia no longer present Electronically Signed On 03-07-23 12:48:38 PLANT ANATOMY TEACHER by Eros Nieves
--- NOTE | 2023-03-07 12:51 | EKG ---
Test Date: 2023-03-06 Test Time: 17:03:12 Corporate Real Estate Manager: FAROOQ MEASUREMENT RESULTS: Intervals: Rate: 82 WI: 122 QRSD: 74 QT: 382 QTc: 446 [place]: P: 68 WI: 122 QRS: 65 T: 71 INTERPRETIVE STATEMENTS: Normal sinus rhythm with sinus arrhythmia Normal ECG Compared to ECG 03/01/2023 10:55:45 No significant changes Electronically Signed On 03-07-23 12:49:24 TOUR SALES REPRESENTATIVE by Eros Nieves
[2023-03-07] MEDS ORDERED: ENOXAPARIN 40 MG/0.4 ML SQ SCH (17:00)
--- NOTE | 2023-03-07 20:28 | PN ---
Date of Progress Note: 03/07/2023 Subjective: The patient was seen this morning for followup. Overall, she was feeling better compare d to yesterday. No new complaints or problems reported. Objective: Vital Signs: Reviewed. HEENT: Unremarkable. Lungs: Clear to auscultation. Heart: Sounds normal. Abdomen: Soft. Bowel sounds normal. No guarding, rigidity, tenderness, distention. Extremities: No leg edema. Laboratory Data: White count 15.6, hemoglobin 8.3, platelets 269. Sodium 142, potassium 4, chloride 114, bicarb 21, BUN 17, creatinine 0.71, glucose 95. Troponin 23.5. Impression: 1.Acute gastroenteritis. 2.Hypothyroidism. 3.Anxiety. 4.Depression. Plan: We will go ahead and have Physical Therapy assist the patient with ambulation. Continue curre nt empiric antibiotic for acute gastroenteritis. Details were discussed with Dr. Ching from [facility], who will evaluate the patient. I will see her tomorrow for followup, possible d ischarge to go home tomorrow. Today, I ordered clear liquid diet for breakfast and if she tolerates, then to give full liquid diet for lunch and if she tolerates that, then to advance to regular diet for dinner. DVT prophylaxis will be given using Lovenox. OMID/MODL Voice ID: [id number] Report ID: [id number]
[2023-03-07] MEDS ORDERED: TRAZODONE 50 MG TABLET PO SCH (21:00)
[2023-03-08 00:49] VITALS: TEMP 98.4
[2023-03-08] MEDS: MORPHINE 2 MG/ML SYR IV PRN ×2 (04:11→08:56)
[2023-03-08] MEDS: D5 0.45 NS 1,000 ML IV SCH (04:11)
[2023-03-08] MEDS: ONDANSETRON 4 MG/2 ML VIAL IV PRN (04:12)
[2023-03-08] MEDS: METRONIDAZOLE 500mg IVPB 500 MG/100 ML BAG IV SCH ×2 (05:03→12:00)
[2023-03-08] MEDS ORDERED: LEVOTHYROXINE SOD 0.05 MG TABLET PO SCH (06:30)
[2023-03-08 07:37] LABS: Absolute Lymphocytes (CBC) 2.2 K/uL (0.7-4.9); Hematocrit 24.3 % (36.0-45.0); Lymphocytes % 19.2 % (15.3-44.8); MCV 94.6 fL (80-100); MPV 7.6 fL (7.6-11.3); Platelets 273 thou/uL (152-406); RBC Red Blood Cell Count 2.57 M/uL (3.86-4.86)
[2023-03-08 08:01] LABS: Magnesium 1.9 mg/dL (1.6-2.4); Potassium 3.1 mEq/L (3.5-5.1)
[2023-03-08] MEDS: PANTOPRAZOLE 40 MG INJ IVP SCH (08:38)
[2023-03-08] MEDS: ENOXAPARIN 30 MG/0.3 ML SQ SCH (08:39)
[2023-03-08] MEDS: CIPROFLOXACIN 400mg IV 400 MG/200 ML BAG IV SCH (08:39)
[2023-03-08 08:41] VITALS: BP 143/65
[2023-03-08] MEDS: BUPROPION HCL XL 150 MG TAB PO SCH (08:55)
[2023-03-08] MEDS ORDERED: POTASSIUM 25 MEQ EFFERV TAB PO ONE (09:00)
[2023-03-08 09:08] VITALS: O2SAT 92
== END 2023-03-08 13:30 | disposition home or self-care (01) | DRG 392 ==
LOC: ER 16:45 → ERHOLD 18:34 → 4TH 21:08
PROVIDERS: ADMIT Internal Medicine; ATTEND Internal Medicine
DX: K52.9 Noninfective gastroenteritis and colitis, unspecified (principal); E86.0 Dehydration; K29.00 Acute gastritis without bleeding; E03.9 Hypothyroidism, unspecified; E78.2 Mixed hyperlipidemia; K29.80 Duodenitis without bleeding; M81.0 Age-related osteoporosis without current pathological fracture; F32.A Depression, unspecified; F41.9 Anxiety disorder, unspecified; E86.9 Volume depletion, unspecified; D72.829 Elevated white blood cell count, unspecified; J44.9 Chronic obstructive pulmonary disease, unspecified; R73.01 Impaired fasting glucose; Z88.0 Allergy status to penicillin; Z85.3 Personal history of malignant neoplasm of breast; Z88.5 Allergy status to narcotic agent; Z90.49 Acquired absence of other specified parts of digestive tract; Z96.652 Presence of left artificial knee joint; Z79.890 Hormone replacement therapy; Z79.899 Other long term (current) drug therapy
CPT/HCPCS: 36415; 71045; 71275; 74177; 80048; 80076; 81003; 83605; 83690; 83735; 83880; 84484; 85025; 85610; 87040; 93005; 93970; 97116; 97161; 97530; 99285; C9113; J0696; J0744; J1650; J2270; J2405; J3411; J7030; J7040; J7799; P9047; Q9967

== ENCOUNTER 2023-03-21 09:17 | Inpatient (IN) | payer OTHER, MEDICARE ==
--- OUTSIDE RECORDS SUMMARY | 2023-03-21 09:21 | XMS REPORT | Continuity of Care Document ---
Author Name Unknown Address [address] [facility] [address] [place] [address] 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 Name Role Phone Marcellus Falcon Primary Care Physician [phone] Roman Laurent Attending Clinician Unavailable TRANG MURRIETA Attending Clinician Unavailable KADY RIVERA Attending Clinician Unavailable RHETT TSANG Attending Clinician Unavailable Jannet Attending Clinician Unavaila DAMON Aquino Attending Clinician Unavailable Mallika Paredes Attending Clinician [phone] Mariza Cameron Attending Clinician [phone] PASTOR BLANCO Attending Clinician Unavailable Radiology Attending Clinician Unavailable RADIOLOGY Attending Clinician Unavailable Doctor Unassigned, [place] Attending Clinician U navailable LINETTE PATEL III Attending Clinician UnavailRoman Lee Admitting Clinician Unavailable Jannet Admitting Clinician Unavaila MARCELLUS Ennis Admitting Clinician Unavailable LINETTE PATEL III Admitting Clinician Unavailjoseph estrella Payers Payer Name Policy Type Policy Number Effective Date Expirati on Date Source MEDICARE PART A AND B [id number] 2011 00:00:00 AARP-SECONDARY ONLY [id number] 00:00:00 [place] [id number] 2011 00:00:00 [employer] HEALTHCARE OPTIONS (MEDICARE SUPPLEMENT) [id number] 2022 00:00:00 AARP MEDICARE SUPPLEMENT [id number] 2012 00:00:00 MEDICARE PART A \T\ B [id number] 2011 00:00:00 [facility] MEDICARE SUPPLEMENT [id number] 2012 00:00:00 Problems Condition Name Condition Details Condition Category Status Onset Date Resolution Date Last Treatment Date Treating Clinician Comments Source Knee joint prosthesis present Knee Joint Prosthesis Present Problem Active 2022-03 00:00: 00 [facility] 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 Problem Active 2022-03 00:00: 00 [facility] Pain in pelvis Pain in Pelvis Problem Active 2022-03 00:00: 00 [facility] Trochanter ic bursitis of right hip Trochanter ic Bursitis of Right Hip Problem Active 2022-03 00:00: 00 [facility] Primary gonarthros is, bilateral Primary Gonarthros is, Bilateral Problem Active 11-17 00:00: 00 [facility] Pain of bilateral knee regions Pain of Bilateral Knee Regions Problem Active 11-17 00:00: 00 [facility] Closed intertroch anteric fracture Closed Intertroch anteric Fracture Problem Active 07-20 00:00: 00 [facility] Allergies, Adverse Reactions, Alerts Allergy Name Allergy Type Status Severity Reaction(s) Onset Date Inactive Date Treating Clinician Comments Source Penicill ins DA Active [facility] 2022-03 00:00: 00 [facility] codeine DA Active SV THROAT SWELLS 2022-03 00:00: 00 [facility] Penicill in g Allergy to substanc e Active 08-10 00:00: 00 [facility] CODEINE DRUG INGREDI Active Unknown-Cmnt 2018-03 00:00: 00 [facility] PENICILL IN DRUG INGREDI Active Unknown-Cmnt 2018-03 00:00: 00 [facility] Penicill ins Allergy to substanc e Active Shortness of breath 05-12 00:00: 00 Other reaction( s): Unknown, Unknown - See commentsU rticaria, hives, rash, asthma/re spiratory distress [facility] PENICILL INS Drug Class Active High Sob [...] Active High Sob 05-12 00:00: 00 MD [place] PENICILL INS Drug Class Active High [...] Active Low Rash 05-12 00:00: 00 MD [place] PENICILL INS Drug Class Active High [...] Rash 05-12 00:00: 00 MD [place] Amoxicil mei Allergy to substanc e Active [facility] Codeine Allergy to substanc e Active [facility] Social History Social Habit Start Date Stop Date Quantity Comments Source Exposure to SARS-CoV-2 (event) 2021-11-28 00:00:00 2021-12-08 12:22:00 Not sure [facility] Sex Assigned At 1945 00:00:00 1945 00:00:00 [facility] Smoking Status Start Date Stop Date Source Former Smoker [facility] Tobacco smoking consumption unknown [facility] Medications Ordered Medication Name Filled Medication Name Start Date Stop Date Current Medication? Ordering Clinician Indication Dosage Frequency Signature (SIG) Comments Components Source aspirin 81 mg tablet,marita yed release TAKE 1 TABLET BY MOUTH TWICE DAILY aspirin 81 mg tablet,marita yed release TAKE 1 TABLET BY MOUTH TWICE DAILY No aspirin 81 mg tablet,del ayed release TAKE 1 TABLET BY MOUTH TWICE DAILY [facility] atorvastati n 40 mg tablet TAKE 1 TABLET BY MOUTH EVERY EVENING WITH MEAL atorvastati n 40 mg tablet TAKE 1 TABLET BY MOUTH EVERY EVENING WITH MEAL No atorvastat in 40 mg tablet TAKE 1 TABLET BY MOUTH EVERY EVENING WITH MEAL [facility] azithromyci n 250 mg tablet TAKE 2 TABLETS BY MOUTH FOR 1 DAY THEN TAKE 1 TABLET BY MOUTH DAILY FOR 4 DAYS azithromyci n 250 mg tablet TAKE 2 TABLETS BY MOUTH FOR 1 DAY THEN TAKE 1 TABLET BY MOUTH DAILY FOR 4 DAYS No azithromyc in 250 mg tablet TAKE 2 TABLETS BY MOUTH FOR 1 DAY THEN TAKE 1 TABLET BY MOUTH DAILY FOR 4 DAYS [facility] bupropion HCl XL 150 mg 24 hr tablet, extended release bupropion HCl XL 150 mg 24 hr tablet, extended release No bupropion HCl XL 150 mg 24 hr tablet, extended release [facility] celecoxib 200 mg capsule TAKE 1 CAPSULE BY MOUTH TWICE DAILY celecoxib 200 mg capsule TAKE 1 CAPSULE BY MOUTH TWICE DAILY No celecoxib 200 mg capsule TAKE 1 CAPSULE BY MOUTH TWICE DAILY [facility] ciprofloxac in 500 mg tablet TAKE 1 TABLET BY MOUTH TWICE DAILY ciprofloxac in 500 mg tablet TAKE 1 TABLET BY MOUTH TWICE DAILY No ciprofloxa elizabeth 500 mg tablet TAKE 1 TABLET BY MOUTH TWICE DAILY [facility] clonazepam 0.5 mg tablet TAKE 1 TABLET BY MOUTH DAILY NEEDED clonazepam 0.5 mg tablet TAKE 1 TABLET BY MOUTH DAILY NEEDED No clonazepam 0.5 mg tablet TAKE 1 TABLET BY MOUTH DAILY NEEDED [facility] diclofenac sodium 75 mg tablet,marita yed release Take one tablet by mouth twice a day after finishing 5 days of Ketorolac diclofenac sodium 75 mg tablet,marita yed release Take one tablet by mouth twice a day after finishing 5 days of Ketorolac No diclofenac sodium 75 mg tablet,del ayed release Take one tablet by mouth twice a day after finishing 5 days of Ketorolac [facility] doxycycline hyclate 100 mg capsule Take 1 capsule twice a day by oral route for 7 days. doxycycline hyclate 100 mg capsule Take 1 capsule twice a day by oral route for 7 days. No doxycyclin e hyclate 100 mg capsule Take 1 capsule twice a day by oral route for 7 days. [facility] doxycycline monohydrate 100 mg capsule TAKE 1 CAPSULE BY MOUTH TWICE DAILY X7 DAYS doxycycline monohydrate 100 mg capsule TAKE 1 CAPSULE BY MOUTH TWICE DAILY X7 DAYS No doxycyclin e monohydrat e 100 mg capsule TAKE 1 CAPSULE BY MOUTH TWICE DAILY X7 DAYS [facility] fluticasone propionate 50 mcg/actuati on nasal spray,suspe nsion SHAKE LIQUID AND USE 1 SPRAY IN EACH NOSTRIL TWICE DAILY NEEDED FOR ALLERGIES fluticasone propionate 50 mcg/actuati on nasal spray,suspe nsion SHAKE LIQUID AND USE 1 SPRAY IN EACH NOSTRIL TWICE DAILY NEEDED FOR ALLERGIES No fluticason e propionate 50 mcg/actuat ion nasal spray,susp ension SHAKE LIQUID AND USE 1 SPRAY IN EACH NOSTRIL TWICE DAILY NEEDED FOR ALLERGIES [facility] Hibiclens 4 % topical liquid USE TO WASH KNEE DAILY STARTING 5 DAYS PRIOR TO SURGERY. USE THE NIGHT BEFORE AND MORNING OF SURGERY FROM THE NECK DOWN Hibiclens 4 % topical liquid USE TO WASH KNEE DAILY STARTING 5 DAYS PRIOR TO SURGERY. USE THE NIGHT BEFORE AND MORNING OF SURGERY FROM THE NECK DOWN No Hibiclens 4 % topical liquid USE TO WASH KNEE DAILY STARTING 5 DAYS PRIOR TO SURGERY. USE THE NIGHT BEFORE AND MORNING OF SURGERY FROM THE NECK DOWN [facility] ketorolac 10 mg tablet Take 1 tablet every 6 hours by oral route for 5 days. ketorolac 10 mg tablet Take 1 tablet every 6 hours by oral route for 5 days. No ketorolac 10 mg tablet Take 1 tablet every 6 hours by oral route for 5 days. [facility] Lagevrio 200 mg capsule (EUA) TAKE 4 CAPSULES BY MOUTH TWICE DAILY Lagevrio 200 mg capsule (EUA) TAKE 4 CAPSULES BY MOUTH TWICE DAILY No Lagevrio 200 mg capsule (EUA) TAKE 4 CAPSULES BY MOUTH TWICE DAILY [facility] levothyroxi ne 50 mcg tablet TAKE 1 TABLET BY MOUTH DAILY levothyroxi ne 50 mcg tablet TAKE 1 TABLET BY MOUTH DAILY No levothyrox ine 50 mcg tablet TAKE 1 TABLET BY MOUTH DAILY [facility] meloxicam 15 mg tablet TAKE 1 TABLET BY MOUTH EVERY DAY IN THE MORNING meloxicam 15 mg tablet TAKE 1 TABLET BY MOUTH EVERY DAY IN THE MORNING No meloxicam 15 mg tablet TAKE 1 TABLET BY MOUTH EVERY DAY IN THE MORNING [facility] metronidazo le 500 mg tablet TAKE 1 TABLET BY MOUTH THREE TIMES DAILY metronidazo le 500 mg tablet TAKE 1 TABLET BY MOUTH THREE TIMES DAILY No metronidaz ole 500 mg tablet TAKE 1 TABLET BY MOUTH THREE TIMES DAILY [facility] mupirocin 2 % topical ointment APPLY A SMALL AMOUNT TO EACH NOSTRIL DAILY STARTING 5 DAYS BEFORE SURGERY mupirocin 2 % topical ointment APPLY A SMALL AMOUNT TO EACH NOSTRIL DAILY STARTING 5 DAYS BEFORE SURGERY No mupirocin 2 % topical ointment APPLY A SMALL AMOUNT TO EACH NOSTRIL DAILY STARTING 5 DAYS BEFORE SURGERY [facility] ofloxacin 0.3 % ear drops INSTILL 4 DROPS TO RIGHT EAR TWICE DAILY FOR 7 DAYS ofloxacin 0.3 % ear drops INSTILL 4 DROPS TO RIGHT EAR TWICE DAILY FOR 7 DAYS No ofloxacin 0.3 % ear drops INSTILL 4 DROPS TO RIGHT EAR TWICE DAILY FOR 7 DAYS [facility] omeprazole 40 mg capsule,del ayed release TAKE 1 CAPSULE BY MOUTH DAILY 30 MINUTES BEFORE BREAKFAST omeprazole 40 mg capsule,del ayed release TAKE 1 CAPSULE BY MOUTH DAILY 30 MINUTES BEFORE BREAKFAST No omeprazole 40 mg capsule,de layed release TAKE 1 CAPSULE BY MOUTH DAILY 30 MINUTES BEFORE BREAKFAST [facility] potassium chloride ER 10 mEq tablet,exte nded release potassium chloride ER 10 mEq tablet,exte nded release No potassium chloride ER 10 mEq tablet,ext ended release [facility] prednisone 10 mg tablet TAKE 1 TABLET BY MOUTH THREE TIMES DAILY FOR 10 DAYS prednisone 10 mg tablet TAKE 1 TABLET BY MOUTH THREE TIMES DAILY FOR 10 DAYS No prednisone 10 mg tablet TAKE 1 TABLET BY MOUTH THREE TIMES DAILY FOR 10 DAYS [facility] prednisone 20 mg tablet TAKE 1 TABLET BY MOUTH DAILY WITH FOOD prednisone 20 mg tablet TAKE 1 TABLET BY MOUTH DAILY WITH FOOD No prednisone 20 mg tablet TAKE 1 TABLET BY MOUTH DAILY WITH FOOD [facility] promethazin e 25 mg tablet TAKE 1 TABLET BY MOUTH EVERY 12 HOURS NEEDED FOR NAUSEA OR VOMITING promethazin e 25 mg tablet TAKE 1 TABLET BY MOUTH EVERY 12 HOURS NEEDED FOR NAUSEA OR VOMITING No promethazi ne 25 mg tablet TAKE 1 TABLET BY MOUTH EVERY 12 HOURS NEEDED FOR NAUSEA OR VOMITING [facility] quetiapine 200 mg tablet quetiapine 200 mg tablet No quetiapine 200 mg tablet [facility] tizanidine 4 mg tablet Take 1 tablet(s) EVERY 8 HOURS by oral route, as needed for muscle spasm tizanidine 4 mg tablet Take 1 tablet(s) EVERY 8 HOURS by oral route, as needed for muscle spasm No tizanidine 4 mg tablet Take 1 tablet(s) EVERY 8 HOURS by oral route, as needed for muscle spasm [facility] tramadol 37.5 mg-acetamin ophen 325 mg tablet TAKE 1 TABLET BY MOUTH EVERY 4 TO 6 HOURS NEEDED tramadol 37.5 mg-acetamin ophen 325 mg tablet TAKE 1 TABLET BY MOUTH EVERY 4 TO 6 HOURS NEEDED No tramadol 37.5 mg-acetami nophen 325 mg tablet TAKE 1 TABLET BY MOUTH EVERY 4 TO 6 HOURS NEEDED [facility] tramadol 50 mg tablet TAKE 1 TABLET BY MOUTH EVERY 4 TO 6 HOURS NEEDED FOR PAIN tramadol 50 mg tablet TAKE 1 TABLET BY MOUTH EVERY 4 TO 6 HOURS NEEDED FOR PAIN No tramadol 50 mg tablet TAKE 1 TABLET BY MOUTH EVERY 4 TO 6 HOURS NEEDED FOR PAIN [facility] trazodone 100 mg tablet trazodone 100 mg tablet No trazodone 100 mg tablet [facility] trazodone 150 mg tablet trazodone 150 mg tablet No trazodone 150 mg tablet [facility] venlafaxine ER 150 mg capsule,ext ended release 24 hr venlafaxine ER 150 mg capsule,ext ended release 24 hr No venlafaxin e ER 150 mg capsule,ex tended release 24 hr [facility] zonisamide 25 mg capsule TAKE 2 CAPSULES BY MOUTH DAILY zonisamide 25 mg capsule TAKE 2 CAPSULES BY MOUTH DAILY No zonisamide 25 mg capsule TAKE 2 CAPSULES BY MOUTH DAILY [facility] Procedures Procedure Date / Time Performed Performing Clinicia n Source Fracture Surgery [facility] App[facility] Breast Surgery [facility] Cancer Surgery [facility] ENT/Sinus [facility] Plan of Care Planned Activity Planned Date Details Comments Source Future Appointment 2023-04-09 13:45:00 Roman Laurent [address] [place] [id number] [facility] Encounters Start Date/Time End Date/Time Encounter Type Admission Type Attending Clinicians Care Facility Care Department Encounter ID Source 2023-03-13 00:00:00 2023-03-13 00:00:00 Roman Laurent MD: [address] [place], [place] [id number] , Ph. [id number] [facility] [place] [facility] [id number] [facility] 2023-02-27 16:03:00 2023-02-27 16:03:00 Outpatient Roman Laurent [facility] [id number] [address] [place] [address] 2023-02-23 13:49:12 2023-02-23 15:23:51 Outpatient TRANG DSOUZA MDA, MDA [id number] MD [place] 2023-02-23 13:40:19 2023-02-23 13:47:02 Outpatient TRANG DSOUZA MDA, MDA [id number] MD [place] 2023-01-30 13:07:2023-01-30 23:59:00 Outpatient TRANG DSOUZA MDA MDA [id number] MD [place] 2023-01-30 15:12:24 2023-01-30 17:01:40 Outpatient KADY CAMPBELL MDA MDA [id number] MD [place] 2023-01-30 13:51:54 2023-01-30 13:51:54 Outpatient TRANG DSOUZA MDA MDA [id number] MD [place] 2023-01-30 11:35:26 2023-01-30 11:35:26 Outpatient RHETT CROWLEY MDA MDA [id number] MD [place] 2022-11-22 00:00:00 2022-11-22 00:00:00 Outpatient FOG_Burke_R Sreedhar [facility] A[facility] [id number] [facility] 2022-11-22 00:00:00 2022-11-22 00:00:00 Outpatient FOG_Burke_R obFlorentino A[facility] A[facility] [id number] [facility] 2022-11-22 00:00:00 2022-11-22 00:00:00 Outpatient FOG_Burke_R Sreedhar [facility] AOSM [id number] [facility] 2022-11-22 00:00:00 2022-11-22 00:00:00 Outpatient FOG_Burke_R Sreedhar [facility] AOSM [id number] [facility] 2022-11-22 00:00:00 2022-11-22 00:00:00 Outpatient FOG_Burke_R obertIRINA AOSM AOSM [id number] [facility] 2022-11-12 00:00:00 2022-11-12 00:00:00 Outpatient FOG_Burke_R obert_ [facility] AOS[facility] [id number] [facility] 2022-11-12 00:00:00 2022-11-12 00:00:00 Outpatient FOG_Burke_R obert_ [facility] AOSM [id number] [facility] 2022-11-12 00:00:00 2022-11-12 00:00:00 Outpatient FOG_Burke_R obert_ [facility]OSM AOSM [id number] [facility] 2022-10-27 14:07:47 2022-10-27 15:06:03 Outpatient TRANG DSOUZA MDA, MDA [id number] MD [place] 2022-10-27 13:54:38 2022-10-27 14:05:50 Outpatient TRANG DSOUZA MDA, MDA [id number] MD [place] 2022-10-20 00:00:00 2022-10-20 00:00:00 Outpatient FOG_Burke_R obertIRINA AOSM AOSM [id number] [facility] 2022-10-20 00:00:00 2022-10-20 00:00:00 Outpatient FOG_Burke_R obertIRINA AOSM AOSM [id number] [facility] 2022-09-29 14:20:13 2022-09-29 15:33:59 Outpatient TRANG DSOUZA MDA, MDA [id number] MD [place] 2022-09-29 14:14:41 2022-09-29 14:19:03 Outpatient TRANG DSOUZA MDA, [facility] [id number] [facility] 2022-09-11 00:00:00 2022-09-11 00:00:00 Outpatient FOG_Burke_R obert_ [facility]OSM AOSM [id number] [facility] 2022-09-11 00:00:00 2022-09-11 00:00:00 Outpatient FOG_Burke_R obert_ [facility] AOSM [id number] [facility] 2022-09-07 00:00:00 2022-09-07 00:00:00 Outpatient FOG_Burke_R leticia_ AO AO [id number] [facility] 2022-09-07 00:00:00 2022-09-07 00:00:00 Outpatient FOG_Mehran_R leticia_ AO AO [id number] [facility] 2022-09-01 14:24:33 2022-09-01 15:34:12 Outpatient PRADEEP MURRIETA TRANG MDA MDA [id number] MD [place] 2022-09-01 14:12:38 2022-09-01 14:22:25 Outpatient FRANCINE DSOUZAYL MDA MDA [id number] MD [place] 2022-08-04 16:48:23 2022-08-04 16:48:23 Outpatient FRANCINE DSOUZAYL MDA MDA [id number] [facility] 2022-08-04 16:47:34 2022-08-04 16:47:34 Outpatient PRADEEP MURRIETA TRANG MDA MDA [id number] MD [place] 2022-07-07 13:54:15 2022-07-07 15:20:02 Outpatient FRANCINE DSOUZAYL MDA MDA [id number] MD [place] 2022-07-07 13:41:19 2022-07-07 13:59:09 Outpatient FRANCINE DSOUZAYL MDA MDA [id number] MD [place] 2022-06-09 14:49:15 2022-06-09 16:09:28 Outpatient FRANCINE DSOUZAYL MDA MDA [id number] MD [place] 2022-06-09 14:34:41 2022-06-09 14:47:45 Outpatient FRANCINE DSOUZAYL MDA MDA [id number] MD [place] 2022-05-12 10:16:00 2022-05-12 13:09:44 Outpatient FRANCINE DSOUZAYL MDA MDA [id number] MD [place] 2022-05-12 10:03:15 2022-05-12 10:20:01 Outpatient FRANCINE DSOUZAYL MDA MDA [id number] MD [place] 2022-04-14 12:31:01 2022-04-14 13:35:15 Outpatient PRADEEP MURRIETA TRANG MDA MDA [id number] MD [place] 2022-04-14 12:21:47 2022-04-14 12:28:30 Outpatient PRADEEP [facility]URRIETA [id number] [facility]22-[facility]-17 10:35:25 2022-03-17 11:22:32 Outpatient PRADEEP MURRIETA TRANG MDA MDA [id number] [facility] 2022-03-17 10:24:24 2022-03-17 10:32:56 Outpatient PRADEEP MURRIETA TRANG MDA MDA [id number] MD [place] 2022-02-17 14:59:00 2022-02-17 16:09:32 Outpatient PRADEEP MURRIETA TRANG MDA MDA [id number] [facility] 2022-02-17 14:49:30 2022-02-17 14:50:32 Outpatient PRADEEP MURRIETA TRANG MDA MDA [id number] [facility] 2022-01-20 12:52:03 2022-01-20 13:56:13 Outpatient PRADEEP MURRIETA TRANG MDA MDA [id number] MD [place] 2022-01-20 12:39:34 2022-01-20 12:44:29 Outpatient FRANCINE DSOUZAYL MDA MDA [id number] [facility] 2022-01-09 14:10:00 2022-01-09 23:59:00 Outpatient PRADEEP MURRIETA TRANG MDA MDA [id number] MD [place] 2022-01-09 12:29:33 2022-01-09 13:22:51 Outpatient PRADEEP TSANGTOÑORHETT MDA MDA [id number] MD [place] 2022-01-09 13:22:37 2022-01-09 13:22:37 Outpatient PRADEEP MURRIETA TRANG MDA MDA [id number] MD [place] 2022-01-09 11:44:29 2022-01-09 11:44:29 Outpatient PRADEEP TSANG CHASITY MDA MDA [id number] MD [place] 2021-12-23 14:41:16 2021-12-23 16:31:33 Outpatient TRANG DSOUZA MDA MDA [id number] MD [place] 2021-12-23 14:27:55 2021-12-23 14:29:19 Outpatient TRANG DSOUZA MDA MDA [id number] MD [place] 2021-12-12 15:15:41 2021-12-12 23:59:00 Outpatient TRANG DSOUZA MDA MDA [id number] MD [place] 2021-12-12 13:21:33 2021-12-12 16:07:59 Outpatient DAMON KOENIG MDA MDA [id number] MD [place] 2021-12-08 12:30:00 2021-12-08 13:01:59 Outpatient [facility] [id number] [facility] 2021-12-08 12:30:00 2021-12-08 13:01:59 Office Visit Mallika Newsome [facility] [address] [id number] [facility] 2021-09-01 13:45:00 2021-09-01 14:40:58 Office Visit Mariza Childers [facility] [address] [id number] [facility] 2021-07-21 14:15:00 2021-07-21 15:11:21 Office Visit Mallika Newsome [facility] [address] [id number] [facility] 2021-06-23 14:00:00 2021-06-23 14:23:08 Office Visit Mariza Childers [facility] [address] [id number] [facility] 2020-12-20 14:32:34 2020-12-20 14:32:34 Outpatient PRADEEP MDA MDA [id number] MD [place] 2020-12-20 13:27:07 2020-12-20 13:27:07 Outpatient PASTOR NUNN LLOYD DESAI [id number] MD [place] 2020-12-20 10:02:16 2020-12-20 11:22:07 Outpatient RHETT CROWLEY LLOYD DESAI [id number] MD [place] 2019-04-01 10:33:00 2019-04-01 23:59:00 Hospital Encounter Radiology [facility] [id number] 2019-04-01 10:33:11 2019-04-01 10:32:00 Outpatient R RADIOLOGY [facility] [id number] [facility] 2019-04-01 10:30:00 2019-04-01 10:32:00 Hospital Encounter Radiology [facility] [id number] 2019-04-01 00:00:00 2019-04-01 00:00:00 Orders Only Doctor Unassigned, [place] [facility] [id number] 2019-02-20 12:58:20 2019-02-20 16:08:00 Emergency X JORGE III, LINETTE [facility] ERT [id number] [facility] Results Test Description Test Time Test Comments Results Result Co mments Source [facility] metabolic [id number] 03:35:00* Test Item Value Reference Range Interpretation Comme nts sodium (test code = sodium) 141 mmol/L 136-145 potassium (test code = potassium) 5.1 mmol/L 3.5-5.1 chloride (test code = chloride) 107.0 mmol/L 98-107 carbon dioxide (test code = carbon dioxide) 26.8 mmol/L 21-32 glucose (test code = glucose) 129 mg/dL 74-106 H blood urea nitrogen (test co de = blood urea nitrogen) 8 mg/dL 7-18 glomerular filtration rate ( test code = glomerular filtration rate) 85.2 >60 creatinine (test code = creatinine) 0.73 mg/dL 0.55-1.02 calcium (test code = calcium) 7.9 mg/dL 8.5-10.1 L performing lab: (test code = performing lab:) [facility]
[2023-03-21] MEDS ORDERED: FAMOTIDINE 20 MG/2 ML VIAL IV ONE (10:21)
[2023-03-21] MEDS ORDERED: ONDANSETRON 4 MG/2 ML VIAL ONE ×2 (10:21→13:27)
[2023-03-21] MEDS ORDERED: NA CHLORIDE 0.9% 1,000 ML ONE ×2 (10:22→19:38)
[2023-03-21 10:32] LABS: Absolute Lymphocytes (CBC) 0.9 K/uL (0.7-4.9); MCV 94.7 fL (80-100); MPV 7.5 fL (7.6-11.3); Platelets 559 thou/uL (152-406); RBC Red Blood Cell Count 3.17 M/uL (3.86-4.86)
[2023-03-21 10:44] LABS: Protime INR 1.12
[2023-03-21 10:52] LABS: Blood Morphology Comment NOT SEEN (NOT SEEN); Platelet Estimate INCR; White Blood Cell Scan OK (OK)
[2023-03-21 10:53] LABS: Albumin 3.5 g/dL (3.4-5.0); Bilirubin Direct 0.1 mg/dL (0-0.2); Bilirubin Indirect, Calculated 0.4 mg/dL (0.2-0.8); Bilirubin Total 0.5 mg/dL (0.2-1.0); Magnesium 2.2 mg/dL (1.6-2.4); Potassium 3.7 mEq/L (3.5-5.1); Protein, Total 7.4 g/dL (6.4-8.2); Troponin High Sensitivity 7.1 pg/mL (<58.9)
[2023-03-21 10:57] LABS: Specific Gravity 1.022 (1.005-1.030); Urine Bacteria None Seen /HPF (<20); Urine Bilirubin NEGATIVE (Negative); Urine Blood Negative (Negative); Urine Clarity Extremely Turbid (Clear); Urine Color Yellow (Yellow); Urine Glucose NEGATIVE (Negative); Urine Mucus Slight /HPF (None Seen); Urine Protein 1+ (Negative); Urine Urobilinogen 1+ (Normal); Urine pH 7.5 (5.0-7.0)
--- NOTE | 2023-03-21 11:26 | RAD REPORT ---
EXAM DESCRIPTION: RADChest Single View03/21/2023 10:27 am CLINICAL HISTORY: ABDOMINAL DISTENTION COMPARISON: Chest Single View dated 03/07/2023; Chest Single View dated 03/06/2023; Chest Single Vie w dated 03/01/2023; Chest Single View dated 12/01/2021 TECHNIQUE: Portable AP view of the chest. FINDINGS: The lungs are clear. No pneumothorax or effusion. The cardiomediastinal contours are unre markable. IMPRESSION: No acute cardiopulmonary process.
--- NOTE | 2023-03-21 11:46 | RAD REPORT ---
EXAM DESCRIPTION: CT - Abdomen Pelvis W Contrast - 03/21/2023 11:12 am CLINICAL HISTORY: ABD PAIN COMPARISON: Abdomen Pelvis W Contrast dated 03/06/2023; Abdomen Pelvis W Contrast dated 2; Abdomen Pelvis W Contrast dated 07/02/2018 TECHNIQUE: Thin cut axial CT imaging of the abdomen and pelvis was performed following intravenous a dministration of 100 mL Isovue 300. Multiplanar reformats were generated and reviewed. All CT scans are performed using dose optimization technique as appropriate and may include automated exposure control or mA/KV adjustment according to patient size. FINDINGS: No suspicious findings in the lung bases. The liver, spleen, adrenal glands, and pancreas show no suspicious findings. Gallbladder and biliary tree are also without suspicious finding. Symmetric renal function is seen with no hydronephrosis or suspicious renal mass. Sub centimeter mabel ical hypoattenuating lesions are stable, suggestive of small cysts, difficult to characterize. 3 mm l eft superior pole nonobstructing calculus. No dilated bowel loops. Interval improvement of segmental inflammatory changes including wall thicken ing and mucosal hyperenhancement along the distal duodenum and proximal jejunum seen on the prior CT. Persistent similar inflammatory changes along the first and second part of duodenum with persistent patulous appearance of the second part. No free air, free fluid or other inflammatory stranding. No h ernia, mass or bulky lymphadenopathy. The urinary bladder is without significant finding. No suspicious bony findings. IMPRESSION: Partial improvement of inflammatory changes involving the proximal small bowel, with res olution of the findings along the jejunum and distal duodenum, however the findings persist along the proximal duodenum. Infectious versus inflammatory etiologies are again considered. Nonobstructing 3 mm left superior pole renal calculus.
[2023-03-21] MEDS ORDERED: METRONIDAZOLE 500mg IVPB 500 MG/100 ML BAG IV ONE ×2 (12:43→19:37)
[2023-03-21] MEDS ORDERED: CIPROFLOXACIN 400mg IV 400 MG/200 ML BAG IV ONE (12:43)
--- NOTE | 2023-03-21 12:57 | EDPHYS ---
Physician Documentation [facility] Name: Rachel Walker Age: 77 yrs Sex: Female : 1945 Arrival Date: 03/21/2023 Time: 09:17 Bed 11 Private MD: ED Physician Nahum Krause HPI: 03/21 12:49 This 77 yrs old Female presents to ER via Ambulatory with complaints of ama Abdominal Pain, Nausea/Vomiting. 12:49 The patient presents to the emergency department with nausea, vomiting, that is ama intermittent. Onset: The symptoms/episode began/occurred 1 day(s) ago. Possible causes: unknown. The symptoms are aggravated by nothing. The symptoms are alleviated by nothing. Severity of symptoms: At their worst the symptoms were moderate in the emergency department the symptoms are unchanged. The patient has not experienced similar symptoms in the past. Historical: - Allergies: 09:40 Codeine; hb 09:40 PENICILLINS; hb - PMHx: 09:40 BREAST CA; Depression; Hypothyroidism; hb - PSHx: 09:40 left knee; right mastectomy; Right hip; Mastoidectomy; hb - Immunization history:: Client reports receiving the 2nd dose of the Covid vaccine, Flu vaccine is up to date. - Social history:: Smoking status: Patient denies any tobacco usage or history of. - Family history:: not pertinent. ROS: 12:49 Constitutional: Negative for fever, chills, and weight loss, Eyes: Negative for injury, ama pain, redness, and discharge, ENT: Negative for injury, pain, and discharge, Neck: Negative for injury, pain, and swelling, Cardiovascular: Negative for chest pain, palpitations, and edema, Respiratory: Negative for shortness of breath, cough, wheezing, and pleuritic chest pain, Back: Negative for injury and pain, : Negative for injury, bleeding, discharge, and swelling, MS/Extremity: Negative for injury and deformity, Skin: Negative for injury, rash, and discoloration, Neuro: Negative for headache, weakness, numbness, tingling, and seizure, Psych: Negative for depression, anxiety, suicide ideation, homicidal ideation, and hallucinations, Allergy/Immunology: Negative for hives, rash, and allergies, Endocrine: Negative for neck swelling, polydipsia, polyuria, polyphagia, and marked weight changes, Hematologic/Lymphatic: Negative for swollen nodes, abnormal bleeding, and unusual bruising, 12:49 Abdomen/GI: Positive for abdominal pain, of the epigastric area, right upper quadrant and left upper quadrant, Exam: 12:49 Constitutional: This is a well developed, well nourished patient who is awake, alert, ama and in no acute distress. Head/Face: Normocephalic, atraumatic. Eyes: Pupils equal round and reactive to light, extra-ocular motions intact. Lids and lashes normal. Conjunctiva and sclera are non-icteric and not injected. Cornea within normal limits. Periorbital areas with no swelling, redness, or edema. ENT: Nares patent. No nasal discharge, no septal abnormalities noted. Tympanic membranes are normal and external auditory canals are clear. Oropharynx with no redness, swelling, or masses, exudates, or evidence of obstruction, uvula midline. Mucous membranes moist. Neck: Trachea midline, no thyromegaly or masses palpated, and no cervical lymphadenopathy. Supple, full range of motion without nuchal rigidity, or vertebral point tenderness. No Meningismus. Chest/axilla: Normal chest wall appearance and motion. Nontender with no deformity. No lesions are appreciated. Cardiovascular: Regular rate and rhythm with a normal S1 and S2. No gallops, murmurs, or rubs. Normal PMI, no JVD. No pulse deficits. Respiratory: Lungs have equal breath sounds bilaterally, clear to auscultation and percussion. No rales, rhonchi or wheezes noted. No increased work of breathing, no retractions or nasal flaring. Back: No spinal tenderness. No costovertebral tenderness. Full range of motion. Female : Normal external genitalia. Skin: Warm, dry with normal turgor. Normal color with no rashes, no lesions, and no evidence of cellulitis. MS/ Extremity: Pulses equal, no cyanosis. Neurovascular intact. Full, normal range of motion. Neuro: Awake and alert, GCS 15, oriented to person, place, time, and situation. Cranial nerves II-XII grossly intact. Motor strength 5/5 in all extremities. Sensory grossly intact. Cerebellar exam normal. Normal gait. Psych: Awake, alert, with orientation to person, place and time. Behavior, mood, and affect are within normal limits. 12:49 ECG was reviewed by the Attending Physician. 12:49 Abdomen/GI: Inspection: abdomen appears normal, Bowel sounds: normal, Palpation: nontender, in the epigastric area, right upper quadrant and left upper quadrant, Liver: no appreciated palpable abnormalities, Hernia: not appreciated, Vital Signs: 09:38 BP 134 / 84; Pulse 98; Resp 20; Temp 97.9(O); Pulse Ox 100% on R/A; Weight 53.98 kg; hb Height 5 ft. 1 in. ; Pain 8/10; 14:25 BP 147 / 61; Pulse 80; Resp 16; Pulse Ox 98% on R/A; cm10 09:38 Body Mass Index 22.48 (53.98 kg, 154.94 cm) hb 09:38 Pain Scale: Adult hb MDM: 09:22 Patient medically screened. ama 12:52 Differential diagnosis: Nonspecific abd pain, gastritis, pancreatitis, diverticulitis, ama viral gastroenteritis, gastroenteritis. Data reviewed: vital signs, nurses notes, lab test result(s), EKG, radiologic studies, CT scan, plain films. Consideration of Admission/Observation Patient was admitted/placed on observation. Escalation of care including admission/observation considered. Independent interpretation of the following test(s) in the Emergency Department EKG: See my EKG interpretation above. Test considered but Not performed: MRI: no mrcp. Care significantly affected by the following chronic conditions: breast ca, depression, hypothyroid. 03/21 09:25 Order name: Basic Metabolic Panel; Complete Time: 12:35 ama 03/21 09:25 Order name: CBC with Diff; Complete Time: 12:35 ama 03/21 09:25 Order name: LFT's; Complete Time: 12:35 ama 03/21 09:25 Order name: Magnesium; Complete Time: 12:35 ama 03/21 09:25 Order name: NT PRO-BNP; Complete Time: 12:35 ama 03/21 09:25 Order name: PT-INR; Complete Time: 12:35 ama 03/21 09:25 Order name: Troponin HS; Complete Time: 12:35 ama 03/21 09:26 Order name: Lipase; Complete Time: 12:35 ama 03/21 09:26 Order name: Urinalysis w/ reflexes; Complete Time: 12:35 ama 03/21 10:39 Order name: CBC Smear Scan; Complete Time: 12:35 EDMS 03/21 12:37 Order name: Fecal Leukocyte Stain [facility] 03/21 12:37 Order name: Stool Culture [facility] 03/21 09:25 Order name: XRAY Chest (1 view); Complete Time: 12:35 [facility] 03/21 09:26 Order name: CT Abd/Pelvis - IV Contrast Only; Complete Time: 12:35 [facility] 03/21 09:25 Order name: EKG; Complete Time: 09:26 [facility] 03/21 09:26 Order name: Cardiac monitoring; Complete Time: 10:48 [facility] 03/21 09:26 Order name: EKG - Nurse/Tech; Complete Time: 10:48 [facility] 03/21 09:26 Order name: IV Saline Lock; Complete Time: 10:18 [facility] 03/21 09:26 Order name: Labs collected and sent; Complete Time: 10:24 [facility] 03/21 09:26 Order name: O2 Per Protocol; Complete Time: 10:18 [facility] 03/21 09:26 Order name: O2 Sat Monitoring; Complete Time: 10:18 [facility] EC:49 Rate is 78 beats/min. Rhythm is regular. QRS [place] is Normal. CO interval is normal. QRS ama interval is normal. QT interval is normal. No Q waves. T waves are Normal. No ST changes noted. Clinical impression: NSR w/ Non-specific ST/T Changes and No evidence of ischemia. Interpreted by me. Reviewed by me. Administered Medications: 10:47 Drug: Ondansetron IVP 4 mg IVP once; over 2 minutes Route: IVP; Site: right antecubital;hb 12:53 Follow up: Response: No adverse reaction cm10 10:48 Drug: NS 0.9% IV 500 ml IV at bolus once Route: IV; Rate: bolus; Site: right hb antecubital; 14:26 Follow up: Response: No adverse reaction; IV Status: Completed infusion; IV Intake: cm10 500ml 10:48 Drug: NS 0.9% IV 1000 ml IV at 125 ml/hr continuous Route: IV; Rate: 125 ml/hr; Site: hb right antecubital; 14:26 Follow up: Response: No adverse reaction; IV Status: Completed infusion; IV Intake: cm10 500ml 10:48 Drug: Famotidine IVP 20 mg IVP once; dilute with 10 mL 0.9% NaCl; give over 2 minutes hb Route: IVP; Site: right antecubital; 12:53 Follow up: Response: No adverse reaction cm10 13:21 Drug: metroNIDAZOLE IVPB 500 mg 100 ml IVPB at 200 ml/hr once over 30 mins Volume: 100 cm10 ml; Route: IVPB; Rate: 200 ml/hr; Infused Over: 30 mins; Site: right antecubital; 14:26 Follow up: Response: No adverse reaction; IV Status: Completed infusion; IV Intake: cm10 100ml 13:21 Drug: Pantoprazole IVP 40 mg IVP once Route: IVP; Site: right antecubital; cm10 14:26 Follow up: Response: No adverse reaction cm10 13:21 Drug: Sucralfate PO 1 grams PO once Route: PO; cm10 13:21 Follow up: Response: Other; Pt vomited after receiving meds. cm10 13:36 Drug: Ondansetron IVP 4 mg IVP once; over 2 minutes Route: IVP; Site: right antecubital;cm10 14:26 Follow up: Response: No adverse reaction; Nausea is decreased cm10 14:26 Drug: Ciprofloxacin IVPB 400 mg 200 ml IVPB once over 60 mins Volume: 200 ml; Route: cm10 IVPB; Infused Over: 60 mins; Site: right antecubital; 15:41 Follow up: Response: No adverse reaction; IV Status: Completed infusion; IV Intake: cm10 200ml 19:07 Drug: traMADol PO 100 mg PO once Route: PO; cm10 19:54 Follow up: Response: No adverse reaction cm10 Disposition Summary: 03/21/23 12:56 Hospitalization Ordered Notes: Hospitalization Status: Inpatient Admission ama Provider: Raghu Falcon ama Condition: Fair ama Problem: new ama Symptoms: have improved ama Bed/Room Type: Standard ama Location: Telemetry/MedSurg (Inpatient)(03/21/23 19:48) cg Room Assignment: [facility](03/21/23 19:48) cg Diagnosis - Epigastric abdominal tenderness ama - Vomiting ama - Elevated white blood cell count ama - Duodenitis ama Forms: - Medication Reconciliation Form ama - SBAR form ama - Leadership Thank You Letter ama Signatures: Dispatcher [employer] Nahum Parsons MD MD cha Garcia, Cindy, RN RN Mallika Workman RN RN hb Lewis, Lynsay RN RN ll1 Margo Gilbert PA-C PACelia sb4 Irina Guallpa RN RN cm10 Corrections: (The following items were deleted from the chart) 09:40 09:40 PSHx: left knee; [facility] 16:45 12:56 Telemetry/MedSurg (Inpatient) ama ll1 16:45 12:56 ama ll1 19:48 16:45 [facility] ER HOLD ll1 cg 19:48 16:45 ERHOLD- ll1 cg
--- NOTE | 2023-03-21 12:57 | ER ---
Nurse's Notes [facility] Name: Rachel Walker Age: 77 yrs Sex: Female : 1945 Arrival Date: 03/21/2023 Time: 09:17 Bed 11 Private MD: Diagnosis: Epigastric abdominal tenderness;Vomiting;Elevated white blood cell count;Duodenitis Presentation: 03/21 09:38 Chief complaint: Upper abdominal pain and N/V x 2 days. Not tolerating fluids or PO hb medications. Coronavirus screen: At this time, the client does not indicate any symptoms associated with coronavirus-19. Ebola Screen: No symptoms or risks identified at this time. Initial Sepsis Screen: Does the patient meet any 2 criteria? No. Patient's initial sepsis screen is negative. Does the patient have a suspected source of infection? No. Patient's initial sepsis screen is negative. Risk Assessment: Do you want to hurt yourself or someone else? Patient reports no desire to harm self or others. Onset of symptoms was March 20, 2023. 09:38 Method Of Arrival: Ambulatory 09:38 Acuity: MAYA 3 hb Triage Assessment: 09:40 General: Appears in no apparent distress. ill, Behavior is calm, cooperative. Pain: hb Pain currently is 8 out of 10 on a pain scale. EENT: No signs and/or symptoms were reported regarding the EENT system. Neuro: Level of Consciousness is awake, alert, obeys commands, Oriented to person, place, time, situation. Cardiovascular: Patient's skin is warm and dry. Respiratory: Respiratory effort is even, unlabored, Respiratory pattern is regular, symmetrical. GI: Reports lower abdominal pain, upper abdominal pain, nausea, vomiting. : No signs and/or symptoms were reported regarding the genitourinary system. Derm: Skin is pink, warm \T\ dry. Musculoskeletal: No signs and/or symptoms reported regarding the musculoskeletal system. Historical: - Allergies: 09:40 Codeine; hb 09:40 PENICILLINS; hb - PMHx: 09:40 BREAST CA; Depression; Hypothyroidism; hb - PSHx: 09:40 left knee; right mastectomy; Right hip; Mastoidectomy; hb - Immunization history:: Client reports receiving the 2nd dose of the Covid vaccine, Flu vaccine is up to date. - Social history:: Smoking status: Patient denies any tobacco usage or history of. - Family history:: not pertinent. Screenin:[facility] ED Fall Risk Assessment (Adult) Score/Fall Risk Level 0 - 2 = Low Risk hb Oriented to surroundings, Maintained a safe environment, Educated pt \T\ family on fall prevention, incl call for assistance when getting out of bed. Abuse screen: Denies threats or abuse. Denies injuries from another. Nutritional screening: No deficits noted. Tuberculosis screening: No symptoms or risk factors identified. Assessment: 09:45 General: See triage assessment. . hb 10:51 Reassessment: Patient appears in no apparent distress at this time. Patient and/or hb family updated on plan of care and expected duration. Pain level reassessed. Patient is alert, oriented x 3, equal unlabored respirations, skin warm/dry/pink. 13:47 Reassessment: Patient appears in no apparent distress at this time. No changes from cm10 previously documented assessment. Patient and/or family updated on plan of care and expected duration. Pain level reassessed. Patient is alert, oriented x 3, equal unlabored respirations, skin warm/dry/pink. 19:53 GI: Bowel sounds Abd is soft. cm10 Vital Signs: 09:38 BP 134 / 84; Pulse 98; Resp 20; Temp 97.9(O); Pulse Ox 100% on R/A; Weight 53.98 kg; hb Height 5 ft. 1 in. ; Pain 8/10; 14:25 BP 147 / 61; Pulse 80; Resp 16; Pulse Ox 98% on R/A; cm10 09:38 Body Mass Index 22.48 (53.98 kg, 154.94 cm) hb 09:38 Pain Scale: Adult hb ED Course: 09:19 Patient arrived in ED. ts1 09:22 Nahum Krause MD is Attending Physician. ama 09:40 Triage completed. hb 09:41 Arm band placed on. hb 10:20 Inserted saline lock: 20 gauge in right antecubital area, using aseptic technique. zm Blood collected. 10:24 Basic Metabolic Panel Sent. zm 10:24 CBC with Diff Sent. zm 10:24 LFT's Sent. zm 10:24 Magnesium Sent. zm 10:24 NT PRO-BNP Sent. zm 10:24 PT-INR Sent. zm 10:24 Troponin HS Sent. zm 10:29 XRAY Chest (1 view) In Process Unspecified. EDMS 10:40 Urinalysis w/ reflexes Sent. zm 10:41 Lipase Sent. zm 10:51 Patient has correct armband on for positive identification. Provided Education on: hb tests, result times. 11:13 CT Abd/Pelvis - IV Contrast Only In Process Unspecified. EDMS 12:54 Raghu Falcon MD is Hospitalizing Provider. [facility] 13:47 Irina Guallpa, BELINDA is Primary Nurse. cm10 19:31 Fernanda Agudelo is Primary Nurse. cp4 19:53 No provider procedures requiring assistance completed. Patient admitted, IV remains in cm10 place. Administered Medications: 10:47 Drug: Ondansetron IVP 4 mg IVP once; over 2 minutes Route: IVP; Site: right antecubital;hb 12:53 Follow up: Response: No adverse reaction cm10 10:48 Drug: NS 0.9% IV 500 ml IV at bolus once Route: IV; Rate: bolus; Site: right hb antecubital; 14:26 Follow up: Response: No adverse reaction; IV Status: Completed infusion; IV Intake: cm10 500ml 10:48 Drug: NS 0.9% IV 1000 ml IV at 125 ml/hr continuous Route: IV; Rate: 125 ml/hr; Site: hb right antecubital; 14:26 Follow up: Response: No adverse reaction; IV Status: Completed infusion; IV Intake: cm10 500ml 10:48 Drug: Famotidine IVP 20 mg IVP once; dilute with 10 mL 0.9% NaCl; give over 2 minutes hb Route: IVP; Site: right antecubital; 12:53 Follow up: Response: No adverse reaction cm10 13:21 Drug: metroNIDAZOLE IVPB 500 mg 100 ml IVPB at 200 ml/hr once over 30 mins Volume: 100 cm10 ml; Route: IVPB; Rate: 200 ml/hr; Infused Over: 30 mins; Site: right antecubital; 14:26 Follow up: Response: No adverse reaction; IV Status: Completed infusion; IV Intake: cm10 100ml 13:21 Drug: Pantoprazole IVP 40 mg IVP once Route: IVP; Site: right antecubital; cm10 14:26 Follow up: Response: No adverse reaction cm10 13:21 Drug: Sucralfate PO 1 grams PO once Route: PO; cm10 13:21 Follow up: Response: Other; Pt vomited after receiving meds. cm10 13:36 Drug: Ondansetron IVP 4 mg IVP once; over 2 minutes Route: IVP; Site: right antecubital;cm10 14:26 Follow up: Response: No adverse reaction; Nausea is decreased cm10 14:26 Drug: Ciprofloxacin IVPB 400 mg 200 ml IVPB once over 60 mins Volume: 200 ml; Route: cm10 IVPB; Infused Over: 60 mins; Site: right antecubital; 15:41 Follow up: Response: No adverse reaction; IV Status: Completed infusion; IV Intake: cm10 200ml 19:07 Drug: traMADol PO 100 mg PO once Route: PO; cm10 19:54 Follow up: Response: No adverse reaction cm10 Medication: 19:53 VIS not applicable for this client. cm10 Intake: 14:26 IV: 100ml; Total: 100ml. cm10 14:26 IV: 500ml; Total: 600ml. cm10 14:26 IV: 500ml; Total: 1100ml. cm10 15:41 IV: 200ml; Total: 1300ml. cm10 Outcome: 12:56 Decision to Hospitalize by Provider. ama 19:53 Admitted to Tele accompanied by nurse, via wheelchair, room , Report called to francia Cannon RN 19:53 Condition: good 19:53 Instructed on the need for admit, 20:07 Patient left the ED. cp4 Signatures: Dispatcher [employer] EDNahum Sandra MD MD cha Baxter, Heather RN Joleen Bo Tanya, PAS PAS ts1 Irina Guallpa RN RN cm10 Potter, Christina cp4 Corrections: (The following items were deleted from the chart) 09:40 09:40 PSHx: left knee; hb hb 09:41 09:38 Chief complaint: Upper abdominal pain and N/V x 2 days. hb hb
[2023-03-21] MEDS ORDERED: SUCRALFATE 1 GM TABLET ONE (12:59)
[2023-03-21] MEDS ORDERED: PANTOPRAZOLE 40 MG INJ ONE (12:59)
[2023-03-21] MEDS: NA CHLORIDE 0.9% 1,000 ML IV SCH (18:48)
[2023-03-21] MEDS: METRONIDAZOLE 500mg IVPB 500 MG/100 ML BAG IV SCH (18:48)
[2023-03-21] MEDS ORDERED: MORPHINE 2 MG/ML SYR IV PRN (18:48)
[2023-03-21] MEDS ORDERED: SODIUM CHLORIDE 0.9% 10ML INJ IV PRN (18:48)
[2023-03-21] MEDS ORDERED: ONDANSETRON 4 MG/2 ML VIAL IV PRN (18:48)
[2023-03-21] MEDS ORDERED: TRAMADOL HCL 50 MG TAB ONE (19:04)
[2023-03-21 21:28] VITALS: BMI 22.4
[2023-03-21] MEDS: PANTOPRAZOLE 40 MG INJ IVP SCH (21:58)
[2023-03-21] MEDS: CIPROFLOXACIN 400mg IV 400 MG/200 ML BAG IV SCH (21:59)
[2023-03-22] MEDS ORDERED: QUETIAPINE 100MG TAB ONE (00:22)
[2023-03-22] MEDS ORDERED: TRAZODONE 150 MG TAB ONE (00:24)
[2023-03-22] MEDS: TRAZODONE 150 MG TAB PO SCH ×2 (00:34→21:51)
[2023-03-22] MEDS: METRONIDAZOLE 500mg IVPB 500 MG/100 ML BAG IV SCH ×4 (00:35→17:14)
[2023-03-22] MEDS: NA CHLORIDE 0.9% 1,000 ML IV SCH ×3 (02:48→09:01)
[2023-03-22] MEDS: ACETAMINOPHEN 325 MG TABLET PO PRN ×2 (05:04→18:09)
[2023-03-22] MEDS: LEVOTHYROXINE SOD 0.05 MG TABLET PO SCH (06:40)
--- NOTE | 2023-03-22 06:52 | HP ---
Date of Admission: 03/21/2023 Chief Complaint: Abdominal pain, nausea, vomiting. History Of Present Illness: This is a 77-year-old female patient, who called office today with above -mentioned complaints that started today and she was advised to come to emergency room and after she was evaluated, she was admitted to the hospital. The patient had a recent hospital admission about 2 weeks ago with colitis and she improved with appropriate antibiotics and today she came into emergen cy room with this complaints. After she was evaluated, [facility] She denies any constipation or diarrhea. No blood in stool or blood in urine. She denies any ur inary complaints except her urine appears somewhat cloudy she describes in last day or 2 days. Physical Examination: Vital Signs: Height 5 feet 1 inch, weight 119 pounds, temperature , pulse , resp iratory rate , blood pressure , oxygen saturation . General: Awake, alert, oriented, not in distress. HEENT: Head atraumatic, normocephalic. Conjunctivae nonerythematous. Sclerae white. Mouth, no thr ush or edema noted. Ears/Nose, no mass, lesion, discharge noted. Neck: Supple. No JVD, lymph nodes, bruit, thyromegaly noted. Lungs: Bilateral good equal air entry. Clear to auscultation. No rhonchi. No rales. Heart: Normal heart sounds, no murmur or gallop. Abdomen: Soft, bowel sounds normal. No guarding, rigidity, tenderness, mass, hepatosplenomegaly, dis tention, or bruit noted. Extremities: Bilateral lower extremities show no evidence of any leg edema. Left knee has surgical scar from recent left knee replacement surgery and the scar has healed very well. There is no eviden ce of any gapping, redness, swelling, discharge, or bleeding from this area. Skin: No rash, ulcer, cellulitis. Lymphatics: No lymph node enlargement in neck, supraclavicular, infraclavicular region. Neuro: No focal neurological deficit. Chest: Unremarkable. External Genitalia: Deferred. Rectal: Deferred. Laboratory Data: White count 17, hemoglobin 10.2, platelets 559. Sodium 135, potassium 3.7, chlorid e 101, bicarb 30, BUN 19, creatinine 0.76, glucose 174, calcium 10.4. Liver function tests unremarka ble. Lipase 24. Urinalysis; leukocyte esterase 25, rbc 5 to 10, wbc less than 5, bacteria not seen. Impression: 1.Urinary tract infection. 2.Probable acute pyelonephritis. 3.Anemia, unspecified. 4.Insomnia. 5.Hypothyroidism. 6.Impaired fasting glucose. 7.Right breast cancer. 8.Anxiety. 9.Depression. 10.Osteoporosis. 11.Mixed hyperlipidemia. Plan: Admit the patient to hospital for further evaluation and management of this problem. [facility] is appropriate for inpatient and is expected to spend 2 midnights in hospital. Urine culture was sent from emergency room. We will continue empiric antibiotic as started. Continue IV fluid. Symp tomatic treatment for nausea will be given and home medications will be continued per order, especial ly Seroquel, trazodone at bedtime. Her thyroid medication levothyroxine will be continued for hypoth yroidism and I will see her tomorrow for followup details and plan of treatment discussed with her. DVT prophylaxis will be given per order. OMID/ALFA Voice ID: [id number]
[2023-03-22 07:16] LABS: Absolute Lymphocytes (CBC) 1.7 K/uL (0.7-4.9); Hematocrit 22.5 % (36.0-45.0); Lymphocytes % 23.5 % (15.3-44.8); MCV 96.2 fL (80-100); MPV 7.3 fL (7.6-11.3); Platelets 338 thou/uL (152-406); RBC Red Blood Cell Count 2.34 M/uL (3.86-4.86)
[2023-03-22 07:30] LABS: Albumin 2.5 g/dL (3.4-5.0); Bilirubin Direct 0.1 mg/dL (0-0.2); Bilirubin Indirect, Calculated 0.2 mg/dL (0.2-0.8); Bilirubin Total 0.3 mg/dL (0.2-1.0); Potassium 4.1 mEq/L (3.5-5.1); Protein, Total 5.2 g/dL (6.4-8.2)
[2023-03-22] MEDS: BUPROPION HCL 200 MG PO SCH (09:00)
[2023-03-22] MEDS: ENOXAPARIN 30 MG/0.3 ML SQ SCH (09:01)
[2023-03-22] MEDS: CIPROFLOXACIN 400mg IV 400 MG/200 ML BAG IV SCH ×2 (09:02→20:14)
[2023-03-22] MEDS: PANTOPRAZOLE 40 MG INJ IVP SCH ×2 (09:02→20:14)
[2023-03-22] MEDS ORDERED: QUETIAPINE 100MG TAB PO SCH (21:00)
[2023-03-22] MEDS ORDERED: ATORVASTATIN 20 MG TAB PO SCH (21:00)
[2023-03-23] MEDS: METRONIDAZOLE 500mg IVPB 500 MG/100 ML BAG IV SCH ×2 (00:55→06:11)
[2023-03-23] MEDS: ACETAMINOPHEN 325 MG TABLET PO PRN ×2 (01:00→06:46)
[2023-03-23] MEDS: NA CHLORIDE 0.9% 1,000 ML IV SCH (03:00)
[2023-03-23] MEDS: LEVOTHYROXINE SOD 0.05 MG TABLET PO SCH (06:11)
--- NOTE | 2023-03-23 07:04 | PN ---
Date of Progress Note: 03/22/2023 Subjective: The patient was seen this morning for followup. She was lying in bed, not in distress. Overall feels better than yesterday. Denies any new complaints. No nausea. No vomiting. Objective: Vital Signs: Reviewed. HEENT: Unremarkable. Lungs: Clear to auscultation. Heart: Sounds normal. Abdomen: Soft. Bowel sounds normal. No guarding, rigidity, tenderness, distention. Extremities: No leg edema. Laboratory Data: Reviewed. Impression: 1.Urinary tract infection. 2.Acute pyelonephritis. 3.Insomnia. 4.Anxiety. 5.Depression. Plan: We will go ahead and continue current antibiotics. Follow up on culture results. Hopefully b y tomorrow we should have final report on the culture and then we will decide about discharging her t o go home with appropriate culture specific antibiotics. Reduce IV fluid rate to 50 cc/hour. Detail s and plan of treatment discussed with the patient. OMDI/MODL Voice ID: [id number] Report ID: [id number]
[2023-03-23 08:20] LABS: Absolute Lymphocytes (CBC) 1.5 K/uL (0.7-4.9); Hematocrit 21.4 % (36.0-45.0); Lymphocytes % 26.9 % (15.3-44.8); MCV 95.7 fL (80-100); MPV 7.8 fL (7.6-11.3); Platelets 359 thou/uL (152-406); RBC Red Blood Cell Count 2.24 M/uL (3.86-4.86)
[2023-03-23] MEDS: ENOXAPARIN 30 MG/0.3 ML SQ SCH (09:00)
[2023-03-23] MEDS: BUPROPION HCL 200 MG PO SCH (09:00)
[2023-03-23] MEDS: PANTOPRAZOLE 40 MG INJ IVP SCH (09:00)
[2023-03-23] MEDS: CIPROFLOXACIN 400mg IV 400 MG/200 ML BAG IV SCH (09:00)
[2023-03-23 09:27] VITALS: BP 127/63; TEMP 97.3; O2SAT 95
--- NOTE | 2023-03-23 13:04 | DS ---
Date of Discharge: 03/23/2023 Disposition: Discharged to go home. Physical Examination: HEENT: Unremarkable. Lungs: Clear to auscultation. Heart: Sounds normal. Abdomen: Soft. Bowel sounds normal. No guarding, rigidity, tenderness, distention. Extremities: No leg edema. Hospital Course: This is a 77-year-old female patient who was admitted to the hospital with complain ts of abdominal pain, nausea, vomiting. Please see dictated H and P for more information. After jaqueline haddad was evaluated in the ER, she was admitted to the hospital and she was treated for urinary tract infection and probable acute pyelonephritis. Urinalysis was abnormal and unfortunately, urine cultur e was not sent from emergency room, so we actually ended up providing her empiric antibiotic treatmen t, but symptomatically she has responded very well. No more abdominal pain. No nausea, vomiting. S he is tolerating diet very well, ambulating well. Denies any constipation or diarrhea. 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 Today, she was discharged to go home in stable condition with following discharge medications and i nstructions. Discharge Diagnoses: 1.Urinary tract infection. 2.Probable acute pyelonephritis. 3.Anemia, unspecified. 4.Insomnia. 5.Hypothyroidism. 6.Impaired fasting glucose. 7.Right breast cancer. 8.Anxiety. 9.Depression. 10.Osteoporosis. 11.Mixed hyperlipidemia. Laboratory Data: Upon admission, sodium 135, potassium 3.7, chloride 101, bicarb 30, BUN 19, creatin ine 0.76, glucose 174. Yesterday, sodium 143, potassium 4, chloride 117, bicarb 24, BUN 10, creatini ne 0.52, glucose 91. Liver function tests unremarkable. Lipase was normal upon admission at 24 and yesterday repeat lipase 29, normal. White count upon admission was 17, hemoglobin 10.2, platelets 55 9. This morning, white count 7.3, hemoglobin 7.4, platelets 338. Discharge Medications And Instructions: Continue all prior home medication except following changes: 1.Do not take any Seroquel for 1 week. 2.Start Cipro 500 mg 2 times a day for 1 week and metronidazole 500 mg 3 times a day for 1 week. 3.Start omeprazole 40 mg p.o. daily. 4.Follow up at my office next week. 5.Follow up with your learning disabilities resource teacher for EGD. OMID/ALFA Voice ID: [id number] Report ID: [id number]
--- NOTE | 2023-03-23 13:44 | EKG ---
Test Date: 2023-03-21 Test Time: 10:40:15 Appointment Scheduler: HB MEASUREMENT RESULTS: Intervals: Rate: 78 DC: 126 QRSD: 74 QT: 410 QTc: [address] [place]: P: 70 DC: 126 QRS: 67 T: 74 INTERPRETIVE STATEMENTS: Sinus rhythm with marked sinus arrhythmia Otherwise normal ECG Compared to ECG 03/07/2023 08:45:20 No significant changes Electronically Signed On 03-23-23 13:40:08 ADMISSIONS OFFICER by Eros Nieves
== END 2023-03-23 09:00 | disposition home or self-care (01) | DRG 690 ==
LOC: ER 09:17 → ERHOLD 13:09 → 4TH 19:59
PROVIDERS: ADMIT Internal Medicine; ATTEND Internal Medicine
DX: N10 Acute pyelonephritis (principal); E03.9 Hypothyroidism, unspecified; K29.80 Duodenitis without bleeding; D72.829 Elevated white blood cell count, unspecified; D64.9 Anemia, unspecified; G47.00 Insomnia, unspecified; F41.9 Anxiety disorder, unspecified; F32.A Depression, unspecified; C50.911 Malignant neoplasm of unspecified site of right female breast; E78.2 Mixed hyperlipidemia; M81.0 Age-related osteoporosis without current pathological fracture; R73.01 Impaired fasting glucose; Z85.3 Personal history of malignant neoplasm of breast; Z88.0 Allergy status to penicillin; Z88.5 Allergy status to narcotic agent; Z90.11 Acquired absence of right breast and nipple
CPT/HCPCS: 36415; 71045; 74177; 80048; 80076; 81001; 83690; 83735; 83880; 84484; 85025; 85610; 93005; 96361; 96365; 96367; 96375; 97116; 97161; 99285; C9113; J0744; J1650; J2270; J2405; J7030; Q9967